=== PATIENT | female | born 1960 | race Caucasian/White ===

== ENCOUNTER 2019-07-16 12:21 | Outpatient (CLI) | payer OTHER, SELFPAY ==
[2019-07-16 13:31] LABS: Calcium 10.2 mg/dL (8.4-10.2)
[2019-07-16 13:44] LABS: Parathyroid Intact 69.9 pg/mL (7.5-53.5)
[2019-07-22 05:36] LABS: Vitamin D 1,25 (OH)2 Total 93 pg/mL (18-72); Vitamin D2 1,25 (OH)2 <8 pg/mL; Vitamin D3 1,25 (OH)2 93 pg/mL
== END 2019-07-16 12:22 | disposition home or self-care (01) ==
PROVIDERS: PCP Family Medicine
DX: E83.52 Hypercalcemia (principal)
CPT/HCPCS: 36415; 82310; 82652; 83970

== ENCOUNTER 2019-10-05 06:33 | Outpatient (CLI) | payer OTHER, SELFPAY ==
[2019-10-05 07:31] LABS: Hematocrit 45.4 % (37.0-47.0); Hemoglobin 15.2 g/dL (12.0-15.0); Mean Corpuscular HGB Conc 33.5 g/dl (32-36); Mean Corpuscular Hemoglobin 29.9 pg (26-34); Mean Corpuscular Volume 89.4 fl (80-100); Mean Platelet Volume 9.7 fl (7.4-10.4); Platelet Count Result 187 k/mm3 (150-375); Red Blood Count 5.08 M/mm3 (4.2-5.4); White Blood Count 5.2 K/mm3 (4.5-10.0)
[2019-10-05 07:43] LABS: Alanine Aminotransferase 19 U/L (4-35); Albumin Level 4.6 g/dL (3.5-5.1); Alkaline Phosphatase 106 U/L (38-126); Aspartate Amino Transferase 22 U/L (14-36); Bilirubin,Total 0.7 mg/dL (0.2-1.3); Blood Urea Nitrogen 12 mg/dL (7-17); Calcium 9.8 mg/dL (8.4-10.2); Carbon Dioxide 27 mmol/L (22-30); Chloride 105 mmol/L (98-107); Cholesterol 193 mg/dL (0-200); Estimated Glomerular Filt Rate > 60; Glucose 98 mg/dL (65-105); HDL Direct 41 mg/dL; Potassium 3.8 mmol/L (3.4-5.0); Sodium 140 mmol/L (137-145); Triglycerides 163 mg/dL (<150)
[2019-10-05 07:54] LABS: LDL Cholesterol Direct 111 mg/dL
== END 2019-10-05 06:34 | disposition home or self-care (01) ==
PROVIDERS: PCP Family Medicine; Visit Provider Family Medicine
DX: I10 Essential (primary) hypertension (principal); E78.5 Hyperlipidemia, unspecified
CPT/HCPCS: 36415; 80053; 80061; 85027

== ENCOUNTER 2019-12-07 16:21 | Outpatient (CLI) | payer OTHER, SELFPAY ==
[2019-12-07 17:12] LABS: Alanine Aminotransferase 20 U/L (4-35); Albumin Level 4.6 g/dL (3.5-5.1); Alkaline Phosphatase 110 U/L (38-126); Aspartate Amino Transferase 22 U/L (14-36); Bilirubin,Total 0.4 mg/dL (0.2-1.3); Blood Urea Nitrogen 18 mg/dL (7-17); Calcium 9.4 mg/dL (8.4-10.2); Carbon Dioxide 25 mmol/L (22-30); Chloride 106 mmol/L (98-107); Estimated Glomerular Filt Rate > 60; Glucose 94 mg/dL (65-105); Potassium 3.7 mmol/L (3.4-5.0); Sodium 139 mmol/L (137-145)
[2019-12-07 18:07] LABS: Parathyroid Intact 84.4 pg/mL (7.5-53.5)
[2019-12-07 18:23] LABS: Free T4 Free Thyroxine 0.72 ng/mL (0.78-2.19)
[2019-12-11 02:54] LABS: Thyroid Peroxidase Antibodies 1506 IU/mL (<9)
[2019-12-11 04:57] LABS: Ionized Calcium 5.3 mg/dL (4.8-5.6)
[2019-12-11 14:05] LABS: Triiodothyronine T3 Free 2.7 pg/mL (2.3-4.2)
== END 2019-12-07 16:22 | disposition home or self-care (01) ==
PROVIDERS: PCP Family Medicine; Visit Provider Internal Medicine Endocrinology, Diabetes & Metabolism
DX: E06.3 Autoimmune thyroiditis (principal); E21.0 Primary hyperparathyroidism
CPT/HCPCS: 36415; 80053; 82330; 83970; 84439; 84443; 84481; 86376

== ENCOUNTER 2020-01-08 06:32 | Outpatient (CLI) | payer OTHER, SELFPAY ==
[2020-01-08 07:57] LABS: Calcium 9.6 mg/dL (8.4-10.2)
[2020-01-08 08:08] LABS: Parathyroid Intact 87.5 pg/mL (7.5-53.5)
== END 2020-01-08 06:33 | disposition home or self-care (01) ==
PROVIDERS: PCP Family Medicine
DX: E21.3 Hyperparathyroidism, unspecified (principal); E83.52 Hypercalcemia
CPT/HCPCS: 36415; 82310; 83970

== ENCOUNTER 2020-01-17 06:34 | Outpatient (CLI) | payer OTHER, SELFPAY ==
[2020-01-17 08:23] LABS: Alanine Aminotransferase 19 U/L (4-35); Albumin Level 4.5 g/dL (3.5-5.1); Alkaline Phosphatase 101 U/L (38-126); Anion Gap 8 mmol/L (8-16); Aspartate Amino Transferase 21 U/L (14-36); Bilirubin,Total 0.7 mg/dL (0.2-1.3); Blood Urea Nitrogen 13 mg/dL (7-17); Calcium 9.7 mg/dL (8.4-10.2); Carbon Dioxide 27 mmol/L (22-30); Chloride 103 mmol/L (98-107); Estimated Glomerular Filt Rate > 60; Glucose 119 mg/dL (65-105); Potassium 3.6 mmol/L (3.4-5.0); Sodium 138 mmol/L (137-145)
[2020-01-17 08:35] LABS: Parathyroid Intact 71.7 pg/mL (7.5-53.5)
[2020-01-17 09:04] LABS: Free T4 Free Thyroxine 0.99 ng/mL (0.78-2.19); Vitamin D 25 Hydroxy 38.3 ng/mL
[2020-01-20 04:44] LABS: Thyroid Peroxidase Antibodies 1014 IU/mL (<9); Triiodothyronine T3 Free 2.7 pg/mL (2.3-4.2)
[2020-01-20 06:47] LABS: Ionized Calcium 5.5 mg/dL (4.8-5.6)
== END 2020-01-17 06:35 | disposition home or self-care (01) ==
PROVIDERS: PCP Family Medicine; Visit Provider Internal Medicine Endocrinology, Diabetes & Metabolism
DX: E06.3 Autoimmune thyroiditis (principal)
CPT/HCPCS: 36415; 80053; 82306; 82330; 83970; 84439; 84443; 84481; 86376

== ENCOUNTER 2020-02-15 16:36 | Outpatient (CLI) | payer OTHER, SELFPAY ==
--- NOTE | ~2020-02-15 | US_ITS ---
EXAMINATION: US thyroid DATE: 02/15/2020 17:05 INDICATION: Bibi thyroiditis. TECHNIQUE: Multiple ultrasound images of the thyroid were obtained. COMPARISON: Ultrasound 01/15/2019 FINDINGS: The right thyroid lobe measures 5.7 x 2.2 x 1.8 cm. The left thyroid lobe measures 6.2 x 2.3 x 1.7 c m. The thyroid is diffusely heterogeneous and hypoechoic without discrete nodule. Vascularity is nor mal. IMPRESSION: 1. Heterogeneous thyroid, consistent with chronic lymphocytic (Bibi) thyroiditis. Reviewed, dictated and finalized at location A. IMPRESSION: 1. Heterogeneous thyroid, consistent with chronic lymphocytic (Bibi) thyro iditis.
== END 2020-02-15 16:37 | disposition home or self-care (01) ==
PROVIDERS: PCP Family Medicine; Visit Provider Internal Medicine Endocrinology, Diabetes & Metabolism
DX: E06.3 Autoimmune thyroiditis (principal)
CPT/HCPCS: 76536

== ENCOUNTER 2020-02-18 06:33 | Outpatient (CLI) | payer OTHER, SELFPAY ==
[2020-02-18 07:20] LABS: Hemoglobin A1C 5.3 % (<5.7)
== END 2020-02-18 06:34 | disposition home or self-care (01) ==
PROVIDERS: PCP Family Medicine; Visit Provider Internal Medicine Endocrinology, Diabetes & Metabolism
DX: R73.01 Impaired fasting glucose (principal)
CPT/HCPCS: 36415; 83036; 83525

== ENCOUNTER 2020-03-17 07:18 | Outpatient (CLI) | payer OTHER, SELFPAY ==
--- NOTE | ~2020-03-17 | MM_ITS ---
EXAMINATION: MM screening jermain BI w sarah HISTORY: Screening mammogram TECHNIQUE: Craniocaudal and mediolateral oblique 3-D tomosynthesis images were obtained and synthetic 2-D images were generated. CAD analysis was submitted and interpreted. COMPARISON: 02/17/2019, 02/10/2018, 02/05/2017 bilateral digital screening mammogram examinations BREAST PARENCHYMAL COMPOSITION: There are scattered areas of fibroglandular density. FINDINGS: There is no evidence of suspicious mass, calcification, or architectural distortion to sugg est malignancy in either breast. There has been no suspicious interval change. IMPRESSION: 1. No mammographic evidence of malignancy. 2. Recommend routine screening mammography in one year. BI-RADS Category 1: Negative Reviewed, dictated and finalized at location A.
== END 2020-03-17 07:19 | disposition home or self-care (01) ==
LOC: ANHIMG 07:20
PROVIDERS: PCP Family Medicine; Visit Provider Obstetrics & Gynecology
DX: Z12.31 Encounter for screening mammogram for malignant neoplasm of breast (principal)
CPT/HCPCS: 77063; 77067

== ENCOUNTER 2020-04-28 06:31 | Outpatient (CLI) | payer OTHER, SELFPAY ==
[2020-04-28 09:18] LABS: Free T4 Free Thyroxine 1.07 ng/mL (0.78-2.19)
[2020-05-02 02:41] LABS: Thyroid Peroxidase Antibodies 1644 IU/mL (<9)
[2020-05-02 15:44] LABS: Triiodothyronine T3 Free 2.8 pg/mL (2.3-4.2)
== END 2020-04-28 06:32 | disposition home or self-care (01) ==
PROVIDERS: PCP Family Medicine; Visit Provider Internal Medicine Endocrinology, Diabetes & Metabolism
DX: E06.3 Autoimmune thyroiditis (principal)
CPT/HCPCS: 36415; 84439; 84443; 84481; 86376

== ENCOUNTER 2020-05-08 07:25 | Outpatient (CLI) | payer OTHER, SELFPAY ==
[2020-05-08 08:34] LABS: Alanine Aminotransferase 17 U/L (4-35); Albumin Level 4.4 g/dL (3.5-5.1); Alkaline Phosphatase 97 U/L (38-126); Anion Gap 5 mmol/L (8-16); Aspartate Amino Transferase 23 U/L (14-36); Bilirubin,Total 0.6 mg/dL (0.2-1.3); Blood Urea Nitrogen 15 mg/dL (7-17); Calcium 9.9 mg/dL (8.4-10.2); Carbon Dioxide 29 mmol/L (22-30); Chloride 105 mmol/L (98-107); Estimated Glomerular Filt Rate > 60; Glucose 115 mg/dL (65-105); Potassium 3.6 mmol/L (3.4-5.0); Sodium 139 mmol/L (137-145)
[2020-05-08 08:43] LABS: Parathyroid Intact 85.7 pg/mL (7.5-53.5)
[2020-05-11 13:06] LABS: Ionized Calcium 5.5 mg/dL (4.8-5.6)
== END 2020-05-08 07:26 | disposition home or self-care (01) ==
PROVIDERS: PCP Family Medicine; Visit Provider Internal Medicine Endocrinology, Diabetes & Metabolism
DX: E21.0 Primary hyperparathyroidism (principal)
CPT/HCPCS: 36415; 80053; 82330; 83970

== ENCOUNTER 2020-07-04 06:36 | Outpatient (CLI) | payer OTHER, SELFPAY ==
[2020-07-04 07:51] LABS: Alanine Aminotransferase 20 U/L (4-35); Albumin Level 4.6 g/dL (3.5-5.1); Alkaline Phosphatase 87 U/L (38-126); Anion Gap 5 mmol/L (8-16); Aspartate Amino Transferase 24 U/L (14-36); Bilirubin,Total 0.9 mg/dL (0.2-1.3); Blood Urea Nitrogen 8 mg/dL (7-17); Calcium 10.1 mg/dL (8.4-10.2); Carbon Dioxide 33 mmol/L (22-30); Chloride 103 mmol/L (98-107); Cholesterol 167 mg/dL (0-200); Estimated Glomerular Filt Rate > 60; Glucose 106 mg/dL (65-105); HDL Direct 49 mg/dL; Sodium 141 mmol/L (137-145); Triglycerides 104 mg/dL (<150)
[2020-07-04 08:02] LABS: LDL Cholesterol Direct 97 mg/dL
[2020-07-04 08:14] LABS: Hemoglobin A1C 5.3 % (<5.7)
[2020-07-04 08:29] LABS: Free T4 Free Thyroxine 1.04 ng/mL (0.78-2.19)
[2020-07-06 05:05] LABS: Insulin Level Total 4.4 uIU/mL (<=19.6)
[2020-07-06 05:55] LABS: Thyroid Peroxidase Antibodies 1774 IU/mL (<9)
[2020-07-07 06:55] LABS: Triiodothyronine T3 Free 2.8 pg/mL (2.3-4.2)
[2020-07-09 14:30] LABS: PRA 10.29 ng/mL/h (0.25-5.82)
== END 2020-07-04 06:37 | disposition home or self-care (01) ==
PROVIDERS: Visit Provider Internal Medicine Endocrinology, Diabetes & Metabolism
DX: E06.3 Autoimmune thyroiditis (principal); R73.01 Impaired fasting glucose; I10 Essential (primary) hypertension
CPT/HCPCS: 36415; 80053; 80061; 82088; 83036; 83525; 84244; 84439; 84443; 84481; 86376

== ENCOUNTER 2021-01-04 06:35 | Outpatient (CLI) | payer OTHER, SELFPAY ==
[2021-01-04 08:05] LABS: Alanine Aminotransferase 20 U/L (4-35); Albumin Level 4.5 g/dL (3.5-5.1); Alkaline Phosphatase 97 U/L (38-126); Anion Gap 10 mmol/L (8-16); Aspartate Amino Transferase 22 U/L (14-36); Bilirubin,Total 0.9 mg/dL (0.2-1.3); Blood Urea Nitrogen 15 mg/dL (7-17); Calcium 9.8 mg/dL (8.4-10.2); Carbon Dioxide 23 mmol/L (22-30); Chloride 104 mmol/L (98-107); Cholesterol 216 mg/dL (0-200); Estimated Glomerular Filt Rate > 60; Glucose 99 mg/dL (65-110); HDL Direct 57 mg/dL; Potassium 3.7 mmol/L (3.4-5.0); Sodium 137 mmol/L (137-145); Triglycerides 82 mg/dL (<150)
[2021-01-04 08:16] LABS: LDL Cholesterol Direct 115 mg/dL
[2021-01-04 08:43] LABS: Hemoglobin A1C 5.5 % (<5.7)
[2021-01-04 09:01] LABS: Vitamin D 25 Hydroxy 37.2 ng/mL
[2021-01-08 03:45] LABS: Insulin Level Total 6.6 uIU/mL (<=19.6)
[2021-01-09 06:29] LABS: Triiodothyronine T3 Free 2.7 pg/mL (2.3-4.2)
== END 2021-01-04 06:36 | disposition home or self-care (01) ==
PROVIDERS: PCP Family Medicine; Visit Provider Family Medicine
DX: E55.9 Vitamin D deficiency, unspecified (principal); E03.9 Hypothyroidism, unspecified; R73.01 Impaired fasting glucose
CPT/HCPCS: 36415; 80053; 80061; 82306; 83036; 83525; 84439; 84443; 84481

== ENCOUNTER 2021-03-12 00:31 | Day surgery (SDC) | payer OTHER, SELFPAY ==
[2021-02-23 13:30] VITALS: BMI 27.1
--- NOTE | 2021-03-09 18:34 | P.PNAN_ITS ---
Anes - Initial Pre Proc Eval Procedure: Operation Date: 03/12/21 08:30 Proposed Procedures p Screening Colonoscopy - Tank Powers MD Date/Time: 03/09/21 18:34 Surgeon: Tank Powers MD Pre Op Diagnosis: neoplasm screening Patient Data Age: 60 Gender: F Height: 1.66 m Weight: 75 kg Allergies Allergy/AdvReac Type Severity Reaction Status Date / Time No Known Allergies Allergy Verified 02/23/21 13:29 Home Medications Medication Instructions Recorded Confirmed Type levothyroxine 75 mcg tablet 75 mcg PO DAILY 09/26/20 02/23/21 History losartan 50 mg tablet 50 mg PO DAILY #90 tablet 09/26/20 02/23/21 Rx simvastatin 20 mg tablet 20 mg PO DAILY #90 tablet 09/26/20 02/23/21 Rx cholecalciferol (vitamin D3) 10 mcg PO DAILY 02/23/21 02/23/21 History [Vitamin D3] Patient hx anesthesia problems: none Family hx anesthesia problems: none Results Review: All pre-operative results and documents have been reviewed as part of the pre-operative evaluation. [facility] Past Medical History Medical History (Updated 03/12/21 @ 07:50 by Tank Powers MD) BMI (body mass index) 20.0-29.9 Essential hypertension Bibi's thyroiditis Hyperparathyroidism Mixed hyperlipidemia Family History Family History (Updated 09/26/20 @ 12:33 by Renée Quintanilla CMA) Mother Hypertension Father Diabetes mellitus Sibling Diabetes mellitus Hypertension Social History Social History (Updated 09/26/20 @ 12:33 by Renée Quintanilla CMA) Smoking status: Never smoker Alcohol intake: current Alcohol use details: seldom; socially Substance use: never Substance use type: does not use Living arrangements: with family Spiritual care concerns: No Anes - Eval Final PreProcedure Day of Procedure 03/09/21 18:34 Patient weight: overweight Heart: regular rate and rhythm Lungs: clear to auscultation and normal air movement Airway: Mallampati scale class II Neurological: alert and oriented Last oral intake: >/= 8 hours ASA classification: III Emergent: no Anesthetic plan: proceed Anesthesia type and monitoring: general GIVS and standard monitoring Results Review: All pre-operative results and documents have been reviewed as part of the pre-operative evaluation. Informed Consent: The patient's anesthetic plan and its attendant risks and benefits were discussed with the patient/family/POA. Questions were solicited and answers provided to the satisfaction of the patient/family/POA.
[2021-03-12 07:40] VITALS: BP 130/79; PULSE 80; RESP 16; TEMP 36.5; O2SAT 100; BMI 26.4
--- NOTE | 2021-03-12 07:49 | WPDGICN ---
Assessment and Plan Assessment and plan (1) Encounter for screening colonoscopy: Code(s): Z12.11 - Encounter for screening for malignant neoplasm of colon Status: Acute Assessment and Plan: Patient presents for screening colonoscopy. She appears to be at average risk for colon polyps. Further recommendations will be given after colonoscopy. GI Consult Note Consult date/time: 03/12/21 07:49 HPI: Frieda Baeza is a 60 year old female Presents for screening colonoscopy. Patient reports that her current weight appetite and bowel movements are normal. Patient denies abdominal pain. She has had no bleeding. Family history is noncontributory. Review of Systems Review of Systems: All systems reviewed & are unremarkable except as noted in HPI and below PMFSH Past Medical History Medical History (Updated 03/12/21 @ 07:50 by Tank Powers MD) BMI (body mass index) 20.0-29.9 Essential hypertension Bibi's thyroiditis Hyperparathyroidism Mixed hyperlipidemia Family History Family History (Updated 09/26/20 @ 12:33 by Renée Quintanilla CMA) Mother Hypertension Father Diabetes mellitus Sibling Diabetes mellitus Hypertension Social History Social History (Updated 09/26/20 @ 12:33 by Renée Quintanilla CMA) Smoking status: Never smoker Alcohol intake: current Alcohol use details: seldom; socially Substance use: never Substance use type: does not use Living arrangements: with family Spiritual care concerns: No Meds Home Medications and Allergies Home Medications Medication Instructions Recorded Confirmed Type levothyroxine 75 mcg tablet 75 mcg PO DAILY 09/26/20 02/23/21 History losartan 50 mg tablet 50 mg PO DAILY #90 tablet 09/26/20 02/23/21 Rx simvastatin 20 mg tablet 20 mg PO DAILY #90 tablet 09/26/20 02/23/21 Rx cholecalciferol (vitamin D3) 10 mcg PO DAILY 02/23/21 02/23/21 History [Vitamin D3] Allergies Allergy/AdvReac Type Severity Reaction Status Date / Time No Known Allergies Allergy Verified 02/23/21 13:29 Vital Signs Vital Signs - 24 hr 03/12/21 07:40 Temperature 97.7 F Pulse Rate 80 Respiratory Rate 16 Blood Pressure 130/79 Pulse Oximetry 100 Exam Narrative: Physical exam reveals patient to be alert. Vital signs stable. HEENT exam is unremarkable. Patient is anicteric. Lungs are clear to auscultation and percussion. Heart is without murmur or extra sounds. Abdominal exam bowel sounds are present soft nontender with no organomegaly. Digital external rectal exam is normal.
[2021-03-12] MEDS: LACTATED RINGERS 1,000 ML 150 ML IV CONT (07:54)
[2021-03-12 08:56] VITALS: BP 91/51; PULSE 64; RESP 16; O2SAT 97
[2021-03-12 09:06] VITALS: BP 98/61; PULSE 70; RESP 18; O2SAT 98
[2021-03-12 09:16] VITALS: BP 105/72; PULSE 66; RESP 18; O2SAT 98
== END 2021-03-12 09:26 | disposition home or self-care (01) ==
PROVIDERS: PCP Family Medicine; Visit Provider Internal Medicine Gastroenterology
PROC: 0DJD8ZZ Inspection of Lower Intestinal Tract, Via Natural or Artificial Opening Endoscopic (ICD-10-PCS; CPT 45378; principal; 2021-03-12 08:30)
DX: Z12.11 Encounter for screening for malignant neoplasm of colon (principal); K64.8 Other hemorrhoids; I10 Essential (primary) hypertension; E06.3 Autoimmune thyroiditis; E21.3 Hyperparathyroidism, unspecified
CPT/HCPCS: 45378; J2001; J2704; J7120

== ENCOUNTER 2021-04-20 08:18 | Outpatient (CLI) | payer OTHER, SELFPAY ==
--- NOTE | ~2021-04-20 | MM_ITS ---
EXAMINATION: MM screening jermain BI w sarah HISTORY: Screening mammogram TECHNIQUE: Craniocaudal and mediolateral oblique 3-D tomosynthesis images were obtained and synthetic 2-D images were generated. CAD analysis was submitted and interpreted. COMPARISON: 03/17/2020, 02/17/2019, 02/10/2018 bilateral screening mammogram examinations BREAST PARENCHYMAL COMPOSITION: There are scattered areas of fibroglandular density. FINDINGS: There is no evidence of suspicious mass, calcification, or architectural distortion to sugg est malignancy in either breast. There has been no suspicious interval change. IMPRESSION: 1. No mammographic evidence of malignancy. 2. Recommend routine screening mammography in one year. BI-RADS Category 1: Negative Reviewed, dictated and finalized at location A. CLEANER
== END 2021-04-20 08:19 | disposition home or self-care (01) ==
LOC: ANHIMG 08:20
PROVIDERS: PCP Family Medicine; Visit Provider Obstetrics & Gynecology
DX: Z12.31 Encounter for screening mammogram for malignant neoplasm of breast (principal)
CPT/HCPCS: 77063; 77067

== ENCOUNTER 2021-06-12 06:53 | Outpatient (CLI) | payer OTHER, SELFPAY ==
[2021-06-12 08:07] LABS: Hemoglobin A1C 5.4 % (<5.7)
[2021-06-12 08:09] LABS: Alanine Aminotransferase 21 U/L (4-35); Albumin Level 4.1 g/dL (3.5-5.1); Alkaline Phosphatase 90 U/L (38-126); Anion Gap 8 mmol/L (8-16); Aspartate Amino Transferase 22 U/L (14-36); Bilirubin,Total 0.6 mg/dL (0.2-1.3); Blood Urea Nitrogen 13 mg/dL (7-17); Calcium 9.4 mg/dL (8.4-10.2); Carbon Dioxide 26 mmol/L (22-30); Chloride 105 mmol/L (98-107); Estimated Glomerular Filt Rate > 60; Glucose 108 mg/dL (65-110); Sodium 139 mmol/L (137-145)
[2021-06-12 08:49] LABS: Free T4 Free Thyroxine 0.99 ng/mL (0.78-2.19)
[2021-06-15 03:21] LABS: Insulin Level Total 5.9 uIU/mL (<=19.6)
[2021-06-15 06:43] LABS: Triiodothyronine T3 Free 2.8 pg/mL (2.3-4.2)
== END 2021-06-12 06:54 | disposition home or self-care (01) ==
PROVIDERS: PCP Family Medicine; Visit Provider Internal Medicine Endocrinology, Diabetes & Metabolism
DX: E03.9 Hypothyroidism, unspecified (principal); R73.01 Impaired fasting glucose
CPT/HCPCS: 36415; 80053; 83036; 83525; 84439; 84443; 84481

== ENCOUNTER 2021-11-16 07:16 | Outpatient (CLI) | payer OTHER, SELFPAY ==
[2021-11-16 08:26] LABS: Cholesterol 149 mg/dL (0-200); HDL Direct 41 mg/dL; Triglycerides 58 mg/dL (<150)
[2021-11-16 08:37] LABS: LDL Cholesterol Direct 83 mg/dL
== END 2021-11-16 07:17 | disposition home or self-care (01) ==
LOC: ANHLAB 07:18
PROVIDERS: PCP Family Medicine; Visit Provider Family Medicine
DX: I10 Essential (primary) hypertension (principal); E78.2 Mixed hyperlipidemia; R73.03 Prediabetes
CPT/HCPCS: 36415; 80061

== ENCOUNTER 2021-12-15 06:54 | Outpatient (CLI) | payer OTHER, SELFPAY ==
[2021-12-15 08:16] LABS: Hemoglobin A1C 4.9 % (<5.7)
[2021-12-19 12:31] LABS: Insulin Level Total 3.9 uIU/mL (<=19.6)
== END 2021-12-15 06:55 | disposition home or self-care (01) ==
PROVIDERS: PCP Family Medicine; Visit Provider Internal Medicine Endocrinology, Diabetes & Metabolism
DX: R73.03 Prediabetes (principal)
CPT/HCPCS: 36415; 83036; 83525

== ENCOUNTER 2022-06-12 06:36 | Outpatient (CLI) | payer OTHER, SELFPAY ==
[2022-06-12 07:23] LABS: Alanine Aminotransferase 23 U/L (6-35); Albumin Level 4.7 g/dL (3.5-5.1); Alkaline Phosphatase 84 U/L (38-126); Anion Gap 5 mmol/L (8-16); Aspartate Amino Transferase 26 U/L (14-36); Bilirubin,Total 0.8 mg/dL (0.2-1.3); Blood Urea Nitrogen 14 mg/dL (7-17); Calcium 9.4 mg/dL (8.4-10.2); Carbon Dioxide 28 mmol/L (22-30); Chloride 103 mmol/L (98-107); Estimated Glomerular Filt Rate > 60; Glucose 86 mg/dL (65-110); Potassium 3.6 mmol/L (3.4-5.0); Sodium 136 mmol/L (137-145)
[2022-06-12 07:24] LABS: Alanine Aminotransferase 23 U/L (6-35); Albumin Level 4.7 g/dL (3.5-5.1); Alkaline Phosphatase 86 U/L (38-126); Anion Gap 8 mmol/L (8-16); Aspartate Amino Transferase 24 U/L (14-36); Bilirubin,Total 0.9 mg/dL (0.2-1.3); Blood Urea Nitrogen 14 mg/dL (7-17); Calcium 9.5 mg/dL (8.4-10.2); Carbon Dioxide 27 mmol/L (22-30); Chloride 102 mmol/L (98-107); Cholesterol 186 mg/dL (0-200); Estimated Glomerular Filt Rate > 60; Glucose 85 mg/dL (65-110); HDL Direct 66 mg/dL; Potassium 3.8 mmol/L (3.4-5.0); Sodium 137 mmol/L (137-145); Triglycerides 88 mg/dL (<150)
[2022-06-12 07:35] LABS: LDL Cholesterol Direct 89 mg/dL
[2022-06-12 07:38] LABS: Creatinine Urine 74.5 mg/dL
[2022-06-12 07:40] LABS: Free T4 Free Thyroxine 1.33 ng/mL (0.78-2.19)
[2022-06-12 07:43] LABS: Microalbumin Urine Random 9.7 mg/L (0-16.7)
[2022-06-12 07:51] LABS: Thyroid Stimulating Hormone 0.667 uIU/mL (0.465-4.680)
[2022-06-12 07:53] LABS: Thyroid Stimulating Hormone Reflex 0.692 uIU/mL (0.465-4.68)
[2022-06-13 13:50] LABS: Hemoglobin A1C 4.9 % (<5.7)
[2022-06-15 11:28] LABS: Insulin Level Total 8.1 uIU/mL (<=19.6)
[2022-06-17 19:29] LABS: Triiodothyronine T3 Free 2.9 pg/mL (2.3-4.2)
== END 2022-06-12 06:37 | disposition home or self-care (01) ==
PROVIDERS: PCP Family Medicine; Referring Provider Nurse Practitioner; Visit Provider Family Medicine
DX: E78.2 Mixed hyperlipidemia (principal); E11.9 Type 2 diabetes mellitus without complications; E03.9 Hypothyroidism, unspecified
CPT/HCPCS: 36415; 80053; 80061; 82043; 83036; 83525; 84439; 84443; 84481

== ENCOUNTER 2022-06-14 15:24 | Outpatient (CLI) | payer OTHER, SELFPAY ==
--- NOTE | ~2022-06-14 | MM_ITS ---
EXAMINATION: MM screening [facility] BI w sarah HISTORY: Screening mammogram TECHNIQUE: Craniocaudal and mediolateral oblique 3-D tomosynthesis images were obtained and synthetic 2-D images were generated. CAD analysis was submitted and interpreted. COMPARISON: 04/20/2021, 03/17/2020, 02/17/2019 BREAST PARENCHYMAL COMPOSITION: There are scattered areas of fibroglandular density. FINDINGS: RIGHT BREAST: No suspicious mass, calcification, or architectural distortion are identified to sugges t malignancy. There has been no suspicious interval change. LEFT BREAST: There is a possible mass in the subareolar aspect of the breast best appreciated on the craniocaudal view. IMPRESSION: 1. Possible left breast mass. 2. Additional mammographic views and possible breast ultrasound are recommended. BI-RADS Category 0: Incomplete: Needs additional imaging evaluation. Reviewed, dictated and finalized at location A. ERY GRINDER IMPRESSION: 1. Possible left breast mass. 2. Additional mammographic views and possible breast ultrasound are recommended . BI-RADS Category 0: Incomplete: Needs additional imaging evaluation.
== END 2022-06-14 15:25 | disposition home or self-care (01) ==
LOC: ANHIMG 15:25
PROVIDERS: PCP Family Medicine; Visit Provider Obstetrics & Gynecology
DX: Z12.31 Encounter for screening mammogram for malignant neoplasm of breast (principal); R92.8 Other abnormal and inconclusive findings on diagnostic imaging of breast
CPT/HCPCS: 77063; 77067

== ENCOUNTER 2022-06-19 12:16 | Outpatient (CLI) | payer OTHER, SELFPAY ==
--- NOTE | ~2022-06-19 | MMUS_ITS ---
EXAMINATION: MM diagnostic jermain LT w sarah, US breast LT limited HISTORY: Possible left breast mass reported in subareolar area on 06/14/2019 screening mammogram TECHNIQUE: Additional 3-D tomosynthesis images of the left breast were performed and synthetic 2-D im ages were generated. CAD analysis was submitted and interpreted. COMPARISON: 06/14/2022screening mammogram Mammogram FINDINGS: There is an approximately 3.2 x 5.3 mm mammographic opacity in the subareolar area of the left breast on CC projection without obvious correlate on the MLO or ML views. Targeted left subareolar breast u ltrasound examination was performed. Ultrasound findings: In the subareolar area there is a parallel circumscribed probable septated cyst measuring approximate ly 4.6 x 2.5 x 5.9 mm. 6 month diagnostic left mammogram and left subareolar breast ultrasound follow -up are recommended. IMPRESSION: 1. Probable benign finding 2. 6 month diagnostic left mammogram and left breast ultrasound follow-up are recommended BI-RADS category 3, probably benign findings. Reviewed, dictated and finalized at location A. R DISTRIBUTOR IMPRESSION: 1. Probable benign finding 2. 6 month diagnostic left mammogram and left breast ultrasound follow-up are r ecommended BI-RADS category 3, probably benign findings.
== END 2022-06-19 12:17 | disposition home or self-care (01) ==
LOC: ANHIMG 12:17
PROVIDERS: PCP Family Medicine; Visit Provider Obstetrics & Gynecology
DX: R92.8 Other abnormal and inconclusive findings on diagnostic imaging of breast (principal)
CPT/HCPCS: 76642; 77061; 77065; G0279

== ENCOUNTER 2022-12-14 07:50 | Outpatient (CLI) | payer OTHER, SELFPAY ==
[2022-12-14 08:59] LABS: Cholesterol 173 mg/dL (0-200); HDL Direct 55 mg/dL; Triglycerides 64 mg/dL (<150)
[2022-12-14 09:11] LABS: LDL Cholesterol Direct 89 mg/dL
[2022-12-14 10:04] LABS: Free T4 Free Thyroxine 1.51 ng/mL (0.78-2.19)
== END 2022-12-14 07:51 | disposition home or self-care (01) ==
LOC: ANHLAB 07:53
PROVIDERS: PCP Family Medicine; Visit Provider Internal Medicine Endocrinology, Diabetes & Metabolism
DX: E03.9 Hypothyroidism, unspecified (principal); R73.01 Impaired fasting glucose
CPT/HCPCS: 36415; 80061; 83036; 84439; 84443

== ENCOUNTER 2022-12-17 13:46 | Outpatient (CLI) | payer OTHER, SELFPAY ==
--- NOTE | ~2022-12-17 | MMUS_ITS ---
EXAMINATION: MM diagnostic jermain LT w sarah, US breast LT limited HISTORY: Six-month follow-up of probable benign subareolar septated 4.6 x 2.5 x 5.9 mm cyst TECHNIQUE: Full field and spot ML, MLO and CC 3-D tomosynthesis images of the left breast were perfor med and synthetic 2-D images were generated. CAD analysis was submitted and interpreted. High resolut ion targeted subareolar left breast ultrasound was performed. COMPARISON: 06/19/2022 diagnostic left mammogram and left breast ultrasound examination BREAST PARENCHYMAL COMPOSITION: There are scattered areas of fibroglandular density. FINDINGS: MAMMOGRAPHIC FINDINGS: There is a circumscribed approximately 4 x 6 mm opacity in the inferior subareolar area of the left b reast. No suspicious mass, architectural distortion, malignant calcification, skin thickening or retraction of the left breast is noted otherwise. ULTRASOUND: There is a septated cyst in the subareolar area, measuring 4.8 x 3.9 x 7 mm. The margins are circumsc ribed. There is through transmission. No suspicious shadowing or internal vascularity is noted. IMPRESSION: 1. Benign septated cyst and subareolar area; no mammographic or sonographic evidence of malignancy is detected 2. Routine annual mammographic screening is recommended BI-RADS Category 2: Benign finding(s). Reviewed, dictated and finalized at location L. IMPRESSION: 1. Benign septated cyst and subareolar area; no mammographic or sonographic isidoro dence of malignancy is detected 2. Routine annual mammographic screening is recommended BI-RADS Category 2: Benign finding(s).
== END 2022-12-17 13:47 | disposition home or self-care (01) ==
PROVIDERS: PCP Family Medicine; Visit Provider Obstetrics & Gynecology
DX: R92.8 Other abnormal and inconclusive findings on diagnostic imaging of breast (principal); N60.19 Diffuse cystic mastopathy of unspecified breast
CPT/HCPCS: 76642; 77061; 77065; G0279

== ENCOUNTER 2023-07-03 15:26 | Outpatient (CLI) | payer OTHER, SELFPAY ==
--- NOTE | ~2023-07-03 | US_ITS ---
EXAMINATION: US thyroid DATE: 07/03/2023 16:08 INDICATION: Goiter. TECHNIQUE: Multiple ultrasound images of the thyroid were obtained. COMPARISON: Thyroid ultrasound 02/15/2020 FINDINGS: The right thyroid lobe measures 4.9 x 1.7 x 4.5 cm. The left thyroid lobe measures 5.5 x 1.5 x 1.8 c m. The thyroid demonstrates diffusely heterogeneous hypoechogenicity and increased vascularity. No d iscrete nodule. IMPRESSION: 1. Heterogeneous, hypervascular thyroid again seen, consistent with chronic lymphocytic (Bibi) t hyroiditis. Reviewed, dictated and finalized at location E. MIX OPERATOR IMPRESSION: 1. Heterogeneous, hypervascular thyroid again seen, consistent with chronic lym phocytic (Bibi) thyroiditis.
== END 2023-07-03 15:27 | disposition home or self-care (01) ==
LOC: ANHIMG 15:29
PROVIDERS: PCP Family Medicine; Visit Provider Internal Medicine
DX: E06.3 Autoimmune thyroiditis (principal)
CPT/HCPCS: 76536

== ENCOUNTER 2023-09-02 11:12 | Emergency (ER) | payer OTHER, SELFPAY ==
--- NOTE | ~2023-09-02 | CT_ITS ---
EXAMINATION: CT brain wo con DATE: 09/02/2023 12:45 INDICATION: Head injury. TECHNIQUE: Computed tomography (CT) of the head was performed without intravenous contrast. The mA wa s adjusted according to patient size. Iterative reconstruction technique was employed. The dose-lengt h product was 605.33 mGy-cm. COMPARISON: None FINDINGS: There is no intracranial hemorrhage, acute infarction, or abnormal intracranial mass lesion . The ventricles are normal in size. There is a frontal scalp hematoma. The orbits are normal. The pa ranasal sinuses are clear. The mastoid air cells are normal. IMPRESSION: 1. Normal brain. Reviewed, dictated and finalized at location A. IMPRESSION: 1. Normal brain.
[2023-09-02 11:14] VITALS: BP 140/76; PULSE 70; RESP 18; TEMP 36.6; O2SAT 100
--- NOTE | 2023-09-02 12:12 | ED.HEATRA ---
HPI - Head Injury General Chief complaint: Head Injury Stated complaint: head injury Time Seen by Provider: 09/02/23 11:35 History of Present Illness HPI Narrative: 63-year-old female presents to the emergency department for head injury that occurred prior to arrival. 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 States a piece of equipment hit her in the head. She denies headache, vision changes, focal numbness or weakness, loss of consciousness. She is not anticoagulated. States she was seen here in emergency department for further evaluation due to protocols. Denies neck pain or other injury acquired. Related Data Home Medications Medication Instructions Recorded Confirmed levothyroxine 75 mcg tablet 75 mcg PO DAILY 09/26/20 06/10/23 (Synthroid) cholecalciferol (vitamin D3) 10 10 mcg PO DAILY 02/23/21 06/10/23 mcg (400 unit) capsule (Vitamin D3) Allergies Allergy/AdvReac Type Severity Reaction Status Date / Time No Known Allergies Allergy Verified 09/02/23 11:20 Review of Systems Review of Systems: CONSTITUTIONAL: Denies fever, chills, or sweats. EYES: Denies visual changes, redness, or discharge. ENT: Denies rhinorrhea, congestion, sore throat, or otalgia. CARDIOVASCULAR: Denies chest pain, palpitations, or edema. RESPIRATORY: Denies cough or dyspnea. GASTROINTESTINAL: Denies abdominal pain, nausea, vomiting, or diarrhea. GENITOURINARY: Denies dysuria or hematuria. SKIN: Denies rash or itching. MUSCULOSKELETAL: Denies back pain, joint pain, or myalgia. NEUROLOGIC: See HPI PSYCHIATRIC: Denies anxiety or depression. [facility] Past Medical History Medical History BMI (body mass index) 20.0-29.9 Essential hypertension Bibi's thyroiditis Hyperparathyroidism Mixed hyperlipidemia Family History Family History Mother Hypertension Father Diabetes mellitus Sibling Diabetes mellitus Hypertension Social History Social History Smoking status: Never smoker Second hand tobacco smoke exposure: No Alcohol intake: current Alcohol use details: seldom; socially Substance use: never Substance use type: does not use Do You Feel Safe in your Home?: Yes Lack of Transportation: No Lack of Food: Never True Current Housing: I Have Housing Concerned About Future Housing: No Difficulty Paying Gas/Electric Bills: No Difficulty Paying for Meds: No Currently Unemployed: No Education: High School Diploma/GED Difficulty w/ Childcare or Family Care: No Living arrangements: with family Occupation/Education: occupation Gender identity (if verbalized by the patient): Female Spiritual care concerns: No Agree to blood products: Yes Exam Narrative: GENERAL: Well-appearing, well-nourished, and in no acute distress. HEAD: Contusion to the superior aspect of the forehead with a mild amount of overlying ecchymosis. No lacerations or abrasions. No step-offs or deformities to scalp. EYES: PERRLA and EOMI. ENT: Nares clear, no rhinorrhea or epistaxis. Mucous membranes moist. NECK: No midline cervical spinous tenderness, step-offs or deformities. CHEST: Clear to auscultation. No respiratory distress. HEART: Regular rate and rhythm. No murmur heard. Normal peripheral pulses. EXTREMITIES: Normal range of motion. No edema. SKIN: Warm, dry, no rash. NEURO: No focal deficits. Alert and oriented x3. Cranial nerves 2-12 intact. Strength 5/5 in BUE and BLE. Sensation intact throughout. Normal [id number]. No pronator drift. Course Vital Signs Vital signs: Vital Signs Temperature 97.8 F 09/02/23 11:14 Pulse Rate 70 09/02/23 11:14 Respiratory Rate 18 09/02/23 11:14 Blood Pressure 140/76 09/02/23 11:14 Pulse Oximetry 100 09/02/23 11:14 Oxygen D
== END 2023-09-02 13:08 | disposition home or self-care (01) ==
PROVIDERS: Emergency Provider Physician Assistant; PCP Family Medicine
DX: S00.03XA Contusion of scalp, initial encounter (principal); I10 Essential (primary) hypertension; E06.3 Autoimmune thyroiditis; W22.8XXA Striking against or struck by other objects, initial encounter
CPT/HCPCS: 70450; 99284

== ENCOUNTER 2023-10-18 07:21 | Outpatient (CLI) | payer OTHER, SELFPAY ==
[2023-10-18 07:48] LABS: Alanine Aminotransferase 18 U/L (6-35); Albumin Level 4.5 g/dL (3.5-5.1); Alkaline Phosphatase 83 U/L (38-126); Anion Gap 7 mmol/L (4-12); Aspartate Amino Transferase 22 U/L (14-36); Bilirubin,Total 0.8 mg/dL (0.2-1.3); Blood Urea Nitrogen 17 mg/dL (7-17); Calcium 9.4 mg/dL (8.4-10.2); Carbon Dioxide 27 mmol/L (22-30); Chloride 108 mmol/L (98-107); Estimated Glomerular Filt Rate > 60; Glucose 99 mg/dL (65-110); Potassium 4.5 mmol/L (3.4-5.0); Sodium 142 mmol/L (137-145)
[2023-10-18 08:00] LABS: Parathyroid Intact 74.1 pg/mL (7.5-53.5)
[2023-10-18 08:20] LABS: Thyroid Stimulating Hormone 0.962 uIU/mL (0.465-4.680)
[2023-10-18 08:40] LABS: Free T4 Free Thyroxine 0.97 ng/mL (0.78-2.19); Vitamin D 25 Hydroxy 33.5 ng/mL
[2023-10-21 08:14] LABS: Thyroid Peroxidase Antibodies 436 IU/mL (<9)
== END 2023-10-18 07:22 | disposition home or self-care (01) ==
LOC: ANHLAB 07:23
PROVIDERS: PCP Family Medicine; Visit Provider Internal Medicine
DX: E06.3 Autoimmune thyroiditis (principal)
CPT/HCPCS: 36415; 80053; 82306; 82330; 83970; 84439; 84443; 86376

== ENCOUNTER 2024-02-16 14:54 | Outpatient (CLI) | payer OTHER, SELFPAY ==
--- NOTE | ~2024-02-16 | MM_ITS ---
EXAMINATION: MM screening [facility] BI w sarah HISTORY: Screening mammogram TECHNIQUE: Craniocaudal and mediolateral oblique 3-D tomosynthesis images were obtained and synthetic 2-D images were generated. CAD analysis was submitted and interpreted. COMPARISON: 12/17/2022, 06/14/2022, 04/20/2021, 03/17/2020 BREAST PARENCHYMAL COMPOSITION:Not Dense. There are scattered areas of fibroglandular density. FINDINGS: No suspicious mass, calcification, or architectural distortion are identified in either myrtle ast to suggest malignancy. There has been no suspicious interval change. IMPRESSION: No mammographic evidence of malignancy. Recommend routine screening mammography in one year. BI-RADS Category 1: Negative Reviewed, dictated and finalized at location .
== END 2024-02-16 14:55 | disposition home or self-care (01) ==
LOC: ANHIMG 14:56
PROVIDERS: PCP Family Medicine; Visit Provider Obstetrics & Gynecology
DX: Z12.31 Encounter for screening mammogram for malignant neoplasm of breast (principal)
CPT/HCPCS: 77063; 77067

== ENCOUNTER 2024-03-08 07:46 | Outpatient (CLI) | payer OTHER, SELFPAY ==
[2024-03-08 08:33] LABS: Total Volume 24 Hour Urine 2750 ml
[2024-03-08 09:15] LABS: Creatinine 24 Hour Urine 0.8 gm/24 (0.8-1.8); Creatinine Urine 31.4 mg/dL
[2024-03-10 13:49] LABS: Total Volume 2750 mL
== END 2024-03-08 07:47 | disposition home or self-care (01) ==
PROVIDERS: PCP Family Medicine; Visit Provider Internal Medicine
DX: R79.89 Other specified abnormal findings of blood chemistry (principal)
CPT/HCPCS: 81050; 82340; 82570

== ENCOUNTER 2024-09-20 07:54 | Outpatient (CLI) | payer OTHER, SELFPAY ==
--- OUTSIDE RECORDS SUMMARY | 2024-09-20 08:03 | XMS_ITS | Data Portability ---
Author Organization [facility], Main Office Address [address] [place] [address] Assessment No assessment recorded. Plan of Treatment Reminders Order Date Submit Date Provider Last Modified By Organization Details Last Modified Time Details Appointments None recorded. Lab HbA1c (hemoglobi n A1c), blood [address] (Lab), [address] [place] [address], [id number], 17:09:32 CMP, serum or plasma [address] (Lab), [address] [place] [address], [id number], 17:09:32 lipid panel, serum 2022 023 [place] (Lab), [address] [place] [address], [id number], 16:15:58 TSH + free T4, serum [address] (Lab), [address] [place] [address], [id number], 17:09:32 Referral None recorded. Procedures None recorded. Surgeries None recorded. Imaging None recorded. Medication Orders Synthroid 88 mcg tablet 2022 023 [facility], [address], [place], [address], 17:08:06 Patient TargetsNo targets recorded. Patient InstructionsNo instructions recorded. Reason for Referral None Reported. Results Created Date Observation Date Name Description Value Unit Range Abnormal Flag Note LastModifiedBy Organization Detail LastModifiedTime Result Notes None recorded. Problems Name Problem SNOMED Code Status Onset Date Resolution Date Notes Provider Name and Address Organization Details Recorded Time Hypertensive disorder 85208447 Active 2018 Not Available [facility] 3 06:03:05 Impaired fasting glycemia 488473861 Active 2021 Not Available [facility] 3 06:03:05 Hypothyroidis m 51758354 Active 2021 Not Available [facility] 3 06:03:05 Hyperlipidemi a 97619869 Active 2018 Not Available [facility] 3 06:03:05 Essential hypertension 11024720 Active 2021 Not Available [facility] 3 06:03:05 Problem Notes None recorded. Procedures Surgical History Date Name Laterality Status Provider Name and Address Organization Details Recorded Time Kidney Stones completed Not Available [facility] 07/24/2022 05:55:56 procedure on parathyroid gland completed Not Available [facility] 07/24/2022 05:55:56 Imaging Results None recorded. Procedure Notes None recorded. Medical Equipment None Reported. Allergies No known drug allergies Medications Name Sig Start Date Stop Date Status Note LastModified by Organization Details LastModified Time losartan 50 mg tablet TAKE 1 TABLET BY MOUTH DAILY active Not Available Not Available No t Available hydrocodone 5 mg-acetamin ophen 325 mg tablet 12/19 completed Not Available Not Available Not Available amlodipine 5 mg tablet TAKE 1 TABLET BY MOUTH EVERY DAY 01/19 completed Not Available Not Available Not Available losartan 100 mg-hydrochl orothiazide 25 mg tablet 02/06 completed Not Available Not Available Not Available dexamethaso ne 1 mg tablet TAKE 1 TABLET BY MOUTH AT BEDTIME NEEDED FOR 1 DAY. active Not Available Not Available No t Available levothyroxi ne 50 mcg tablet Take 1 tablet every day by oral route in the morning for 30 days. 05/05 completed Not Available Not Available Not Available simvastatin 20 mg tablet TAKE 1 TABLET BY MOUTH DAILY active Not Available Not Available No t Available Synthroid 88 mcg tablet TAKE 1 TABLET EVERY MORNING ON AN EMPTY STOMACH FOR HYPOTHYRO IDISM active Not Available Not Available No t Available Synthroid 75 mcg tablet TAKE 1 TABLET DAILY 06/26 completed Not Available Not Available Not Available hydrochloro thiazide 25 mg tablet TAKE 1 TABLET BY MOUTH EVERY DAY 01/19 completed Not Available Not Available Not Available losartan 100 mg tablet TAKE 1 TABLET BY MOUTH EVERY DAY 01/19 completed Not Available Not Available Not Available Ozempic 0.25 mg or 0.5 mg (2 mg/1.5 mL) subcutaneou s pen injector INJECT 0.25MG UNDER THE SKIN ONCE WEEKLY X 4 WEEKS THEN INCREASE TO 0.5MG ONCE WEEKLY WITH FOOD 2022 active Not Available Not Available Not Avai lable Ozempic 0.25 mg or 0.5 mg (2 mg/3 mL) subcutaneou s pen injector INJECT 0.5 MG UNDER THE SKIN ONCE A WEEK 2022 active Not Available Not Available Not Avai lable Vitals Date Recorded Body mass index (BMI) Body height Oxygen saturation Oxygen saturation in Arterial blood by Pulse oximetry Heart rate Body temperature Body weight Systolic blood pressure Diastolic blood pressure Provider Name and Address Organization Details Last Updated DateTime 2 26 kg/m2 165.1 cm 99 % 99 % 72 /min 97.8 [degF] 81700.4 1 g 105 mm[Hg] 70 mm[Hg] Not Available [facility] 3 05:57:00 Date Recorded Body height Body mass index (BMI) Body weight Body temperature Heart rate Systolic blood pressure Diastolic blood pressure Provider Name and Address Organization Details Last Updated DateTime 3 165.1 cm 26.5 kg/m2 55698.1 9 g 97.5 [degF] 79 /min 118 mm[Hg] 71 mm[Hg] AMY Rendon [place] [facility] [place] [facility] 3 16:51:24 Social History Question Answer Notes LastModified by Organizat ion Details LastModified Time Tobacco Smoking Status Never Smoker Not Available [facility] 07/24/2022 05:53:29 What Is Your Level Of Alcohol Consumption? Occasional [id number] Information not available 07/24/2022 What Is Your Level Of Caffeine Consumption? Occasional [id number] Information not available 07/24/2022 In The 14 Days Before Symptom Onset, Have You Had Close Contact With A Laboratory-confir med COVID-19 While That Case Was Ill? No [id number] Information not available 07/24/2022 In The 14 Days Before Symptom Onset, Have You Had Close Contact With A Person Who Is Under Investigation For COVID-19 While That Person Was Ill? No [id number] Information not available 07/24/2022 What Type Of Diet Are You Following? REGULAR [id number] Information not available 07/24/2022 What Is The Highest Grade Or Level Of School You Have Completed Or The Highest Degree You Have Received? VT81793-4 [id number] Information not available 07/24/2022 What Is Your Occupation? [employer] [id number] Information not available 07/24/2022 What Is Your Relationship Status? [id number] Information not available 07/24/2022 Do You Use Your Seat Belt Or Car Seat Routinely? Yes [id number] Information not available 07/24/2022 Do You Use Any Illicit Or Recreational Drugs? No [id number] [id number] Information not available 07/24/2022 Has Tobacco Cessation Counseling Been Provided? No [id number] [id number] Information not available 07/24/2022 Have You Recently Traveled Abroad? No [id number] [id number] Information not available 07/24/2022 Do You Have Any Dietary Restrictions? No [id number].[id number] Information not available 07/24/2022 Do You Or Have You Ever Used Any Other Forms Of Tobacco Or Nicotine? No [id number] Information not available 07/24/2022 Sex: Female Functional Status None recorded. Mental Status None recorded. Family History Relationship Description Onset Age of this Age Resolved Age Notes LastModified by Organization Details LastModified Time Sister Diabetes mellitus [id number] Not available 07/24/2022 05:55:58 Sister Hypertensive disorder [id number] Not available 07/24/2022 05:55:58 Sister Hypercholest erolemia [id number] Not available 07/24/2022 05:55:58 Father Diabetes mellitus [id number] Not available 07/24/2022 05:55:58 Mother Hypertensive disorder [id number] Not available 07/24/2022 05:55:58 Mother Hypercholest erolemia [id number] Not available 07/24/2022 05:55:58 Medical History Condition Response HIGH CHOLESTEROL / HYPERLIPIDEMIA Y PARATHYROID DISEASE Y HYPERTENSION Y Gynecological HistoryNo gynecological history recorded. Obstetrics History GPAL:G 0 P 0 0 0 0 Past Encounters Encounter ID Performer Location Encounter Start Date Encounter Closed Date Diagnosis/Indication Diagnosis SNOMED-CT Code Diagnosis ICD10 Code Diagnosis Note [id number] [facility] [address] [place] [address] 01/19/2021 00:00:00 01/19/2021 17:16:07 [id number] [facility] [place] [facility] [address] [place] [address] 06/26/2021 00:00:00 06/26/2021 14:55:19 [id number] [facility] [place] [facility] [address] [place] [address] 01/08/2022 00:00:00 01/08/2022 17:08:52 [id number] Kalani Guzman MD [facility] [address] [place] [address] 08/15/2022 16:36:34 08/15/2022 17:15:33 Hypothyroidism 12855867 E03.9 TSH and FT4 in ideal range- continue synthroid 88 mcg daily. She was reminded to take her synthroid on empty stomach with glass of water and wait one hour to eat or have her coffee in morning and up to 4 hours if ever taking any heartburn or reflux medication s to help optimize absorption . Discussed paleo like diet with restrictio n of GMOs to help with energy and to optimize absorption of vitamins and minerals and reduce inflammati on. Impaired f asting glycemia 510918420 R73.01 Continue ozempic 0.5 mg once weekly as patient tolerating well. Discussed carb counting and how to read food labels. Recommende d patient to utilize the diabetesfo [employer]YR Free from the ADA website to help with food preparatio n as this presents ideal carb content per meal so this will make carb counting much easier for patient. Recommende d she incorporat e natural insulin metal mover s such as pears, apples, cinnamon, anton and sweet potatoes to help mobilize her endogenous insulin. Recommende d up to 150 minutes of moderate level activity/e xercise weekly. Spent up to 25 minutes preparing to see the patient (eg, review of tests), obtaining and/or reviewing separately obtained history, performing a medically appropriat e examinatio n and evaluation , counseling and educating the patient, ordering medication s, tests, along with documentin g clinical informatio n in the electronic health record, emen [place] interpreti ng results and communicat ing results to the patient. RTC in 6 months. Patient was provided a handwritte n lab order which contains our fax number. If she chooses to go outside of the [facility] system to obtain labwork she was advised to provide our fax number and my informatio n to the lab she will be obtaining labwork from in order to have her labs properly forwarded over for me to review so there is no loss of follow up due to use of outside network. She was also advised to contact our clinic informing us that she has completed her labwork so we are aware we will need to reach out to the appropriat e laboratory to request her results be forwarded to us so I might have the ability to review and make further medical decision making in her case. She voiced understand ing. Health Concerns Section Related Observation LastModified by Organization Detai ls LastModified Time None Recorded Concern Status LastModified by Organization Details LastModified Time None Recorded Advance Directives Directive None Recorded Payers Encounter Date Sequence Insurance Name Policy Number Policy Pineda Covered Member ID Pineda Member ID Guarantor Name 08/15/2022 1 [facility] [id number] Frieda Baeza [id number] Frieda Baeza Notes Date Note Type Note Provider Name and Address Organization Details Recorded Time 08/15/2022 text/html 62 yo female comes in for follow up in management of hypothyroidism, impaired fasting glucose and hypertension. last seen in December at that time we continued synthroid 88 mcg daily. we continued ozempic 0.5 mg once weekly and losartan 50 mg daily. She has lost over 20 pounds since starting ozempic- she has gained 3 pounds since her last visit. She is happy with her medications. Her blood pressure is running 100/60-70 mmHg. She has overall good energy and sleep. She did receive something from synthroid to update her script. labs from 1/18/23:microalbu min 13 ug/mgglucose 85 mg/dLCr normalLFT [id number]/88/66/8 9TSH of 0.667 uIU/mlFT4 of 1.32 ng/dLa1c 4.9% Kalani Guzman MD [address] [facility], [facility] [address], [place], [address], [place] [facility] 08/15/2022 17:58:49 OBGyn Episode No OBEpisode recorded.
--- OUTSIDE RECORDS SUMMARY | 2024-09-20 08:03 | XMS_ITS | Data Portability ---
Author Organization [facility] Address [address] [place] [address] Care Team Providers Care Rn Radiology Name Role Phone BERNARDO ANDRADE Primary Care Provider Assessment Encounter Date Assessment Date Assessment LastModified by Organization Details LastModified Time 12/21/2020 12/21/2020 Annual gynecological exam performed. Patient will come back in a year unless there are new symptoms. Not available 12/21/2020 10:10:35 08/22/2021 08/22/2021 IUD was removed without complications. She tolerated well. [email or web address] Not available 08/22/2021 18:29:35 01/23/2022 01/23/2022 Annual gynecological exam performed. Patient will come back in a year unless there are new symptoms. Not available 01/23/2022 17:48:02 02/10/2023 02/10/2023 Annual gynecological exam performed. Patient will come back in a year unless there are new symptoms. Not available 02/10/2023 16:24:04 02/23/2024 02/23/2024 Annual gynecological exam performed. Patient will come back in a year unless there are new symptoms. Not available 02/23/2024 17:37:28 Plan of Treatment Reminders Order Date Submit Date Provider Last Modified By Organization Details Last Modified Time Details Appointments None record ed. Lab None record ed. Referral None record ed. Procedures None record ed. Surgeries None record ed. Imaging None record ed. Medication Orders None record ed. Patient TargetsNo targets recorded. Patient InstructionsNo instructions recorded. Reason for Referral None Reported. Results Created Date Observation Date Name Description Value Unit Range Abnormal Flag Note LastModifiedBy Organization Detail LastModifiedTime 12/22/19 21 12/21/2020 IMAGE GUIDE D PAP AND HPV REGAR DLESS image guided Pap, HPV regardless of Pap result SEE RESULT S BELOW CASE REPOR T: Cytol ogy Gynec ologi dionte Repor t Case: [id number] Autho ari keys Provi ana cristina: Donna Ramirez MD Colle cted: 12/21 1445 Order ing Locat ion: [place] [facility] Recei ricarda: 12/22 0130 First Scree n: Noe Peacock , [place] Speci men: Scree ruddy Pap - Image d, Cervi x STATE MENT OF ADEQU ACY: Satis facto ry for evalu ation Trans forma tion zone compo nent prese nt FINAL DIAGN OSIS: Negat zee for Intra epith elial Lesio n or Malbelkys cummins Elect katherine ch sherita d by Noe Peacock , CT on 021 at 1:43 PM ----- ----- ----- ----- ----- ----- ----- ----- ----- ----- ----- ----- ----- ----- ----- ----- ----- ---- HPV RESUL TS: HPV mRNA E6/E7 : No HPV mRNA Detec pasha NOTE: This high risk HPV mRNA assay detec ts fourt een high- risk HPV types (16, 18, 31, 33, 35, 39, 45, 51, 52, 56, 58, 59, 66, 68) witho ut diffe renti ation . CHART ABLE COMME NT: Note: This speci men was revie wed by a Cytot echno logis t and/o r Patho logis t (as indic ated in this repor t) after evalu ation using the Thinp rep Imagi ng Syste m. CLINI DIONTE INFOR MATIO N: Menst rual Statu s: LMP (if appli cable ): 015 Clini dionte Histo ry/Pr eviou s Pap: Type of Neopl tim (if appli cable ): Signi fican t Clini dionte Findi ngs: Other Histo ry: Hormo wendy (if appli cable ): PAP EDUCA URIAH L NOTE: The Pap Test is a scree ruddy test with an inher ent false negat zee rate. Liqui d-bas e sampl ing may decre ase, but will not elimi ismael, false negat zee resul ts. A negat zee resul t does not precl ude the prese nce and/o r devel opmen t of disea se, since the prese nce of abnor mal cells in the sampl e depen ds on the locat ion of the lesio n and sampl ing techn ique. Joel nued regul ar scree ruddy is the best metho d of cance r preve ntion . If repor pasha cytol ogic findi ng do not corre late with physi dionte and/o r histo rical findi ngs, furth er inves tigat ion is recom gurpreet d, as clini [place] warra nted. Not Available [facility] (Lab) [address], [place], [address], 12/24/2020 14:45:41 01/24/20 22 01/23/2022 IMAGE GUIDE D PAP AND HPV REGAR DLESS image guided Pap, HPV regardless of Pap result SEE RESULT S BELOW CASE REPOR T: Cytol ogy Gynec ologi dionte Repor t Case: [id number] Autho ari g Provi ana cristina: Donna Ramirez MD Colle cted: 01/23 1756 Order ing Locat ion: [place] [facility] [place] Recei ricarda: 01/24 0301 First Scree n: Susanna bajwa, Vandana , [place] Speci men: Scree ruddy Pap - Image d, Cervi x STATE MENT OF ADEQU ACY: Satis facto ry for evalu ation Trans forma tion zone compo nent prese nt FINAL DIAGN OSIS: Negat zee for Intra epith elial Lesio n or Malig maria g (NIL) . Atrop hy prese nt. Elect ronic jing davila by Vandana Combs CT on 022 at 1:47 PM ----- ----- ----- ----- ----- ----- ----- ----- ----- ----- ----- ----- ----- ----- ----- ----- ----- ---- HPV RESUL TS: HPV mRNA E6/E7 : No HPV mRNA Detec pasha NOTE: This high risk HPV mRNA assay detec ts fourt een high- risk HPV types (16, 18, 31, 33, 35, 39, 45, 51, 52, 56, 58, 59, 66, 68) witho ut diffe renti ation . COMME NT: Note: This speci men was revie wed by a Cytot echno logis t and/o r Patho logis t (as indic ated in this repor t) after evalu ation using the Thinp rep Imagi ng Syste m. CLINI DIONTE INFOR MATIO N: Menst rual Statu s: LMP (if appli cable ): Clini dionte Histo ry/Pr eviou s Pap: Type of Neopl tim (if appli cable ): Signi fican t Clini dionte Findi ngs: Other Histo ry: Hormo wendy (if appli cable ): PAP EDUCA URIAH L NOTE: The Pap Test is a scree ruddy test with an inher ent false negat zee rate. Liqui d-bas ed sampl ing may decre ase, but will not elimi ismael, false negat zee resul ts. A negat zee resul t does not precl ude the prese nce and/o r devel opmen t of disea se, since the prese nce of abnor mal cells in the sampl e depen ds on the locat ion of the lesio n and sampl ing techn ique. Joel nued regul ar scree ruddy is the best metho d of cance r preve ntion . If repor pasha cytol ogic findi ng do not corre late with physi dionte and/o r histo rical findi ngs, furth er inves tigat ion is recom gurpreet d, as clini [place] preciado nted. Not Available [facility] [id number], [place], [address], 01/30/2022 14:49:34 02/11/20 23 02/10/2023 IMAGE GUIDE D PAP AND HPV REGAR DLESS image guided Pap, HPV regardless of Pap result SEE RESULT S BELOW CASE REPOR T: Cytol ogy Gynec ologi dionte Repor t Case: [id number] Autho ari g Provi ana cristina: Donna Ramirez MD Colle cted: 02/10 1730 Order ing Locat ion: [place] [facility] [place] Recei ricarda: 02/11 0702 First Scree n: Marii Echeverria Speci men: Vivi fox Pap - Image d, Cervi x STATE MENT OF ADEQU ACY: Satis facto ry for evalu ation Trans forma tion zone compo nent prese nt FINAL DIAGN OSIS: Negat zee for Intra epith elial Devan torres or Anastasia cummins (NIL) . Elect katherine ch sherita d by Marii Echeverria on 2022 at 7:44 PM ----- ----- ----- ----- ----- ----- ----- ----- ----- ----- ----- ----- ----- ----- ----- ----- ----- ---- HPV RESUL TS: HPV mRNA E6/E7 : No HPV mRNA Detec pasha NOTE: This high risk HPV mRNA assay detec ts fourt een high- risk HPV types (16, 18, 31, 33, 35, 39, 45, 51, 52, 56, 58, 59, 66, 68) witho ut diffe renti ation . COMME NT: This speci men was revie wed by a Cytot echno logis t and/o r Patho logis t (as indic ated in this repor t) after evalu ation using the Thinp rep Imagi ng Syste m. CLINI DIONTE INFOR MATIO N: Menst rual Statu s: LMP (if appli cable ): Clini dionte Histo ry/Pr eviou s Pap: Type of Neopl tim (if appli cable ): Signi fican t Clini dionte Findi ngs: Other Histo ry: Hormo wendy (if appli cable ): PAP EDUCA URIAH L NOTE: The Pap Test is a scree ruddy test with an inher ent false negat zee rate. Liqui d-bas ed sampl ing may decre ase, but will not elimi ismael, false negat zee resul ts. A negat zee resul t does not precl ude the prese nce and/o r devel opmen t of disea se, since the prese nce of abnor mal cells in the sampl e depen ds on the locat ion of the lesio n and sampl ing techn ique. Joel nued regul ar scree ruddy is the best metho d of cance r preve ntion . If repor pasha cytol ogic findi ng do not corre late with physi dionte and/o r histo rical findi ngs, furth er inves tigat ion is recom gurpreet d, as clini [place] preciado nted. Not Available [facility] (Lab) [address], [place], [address], 02/11/2023 20:47:40 02/23/20 24 02/23/2024 IMAGE GUIDE D PAP AND HPV REGAR DLESS image guided Pap, HPV regardless of Pap result SEE RESULT S BELOW CASE REPOR T: Cytol ogy Gynec ologi dionte Repor t Case: [id number] Autho ari g Provi ana cristina: Donna Ramirez MD Colle cted: 02/22 1706 Order ing Locat ion: [place] [facility] [place] Recei ricarda: 02/23 0226 First Scree n: Strut z, Willi am, CT Speci men: Scree ruddy Pap - Image d, Cervi x STATE MENT OF ADEQU ACY: Satis facto ry for evalu ation Trans forma tion zone compo nent canno t be defin itive ly ident ified due to the prese nce of atrop hy or other hormo nal espitia es ----- ----- ----- ----- ----- ----- ----- ----- ----- ----- ----- ----- ----- ----- ----- ----- ----- ---- FINAL DIAGN OSIS: Negat zee for Intra epith elial Lesio n or Anastasia cummins (NIL) . Atrop hic cell chet hart. Elect katherine davila by Romulo funk, Luis Daniel dickinson, CT on 2023 at 10:57 AM ----- ----- ----- ----- ----- ----- ----- ----- ----- ----- ----- ----- ----- ----- ----- ----- ----- ---- HPV RESUL TS: HPV mRNA E6/E7 : No HPV mRNA Detec pasha NOTE: This high risk HPV mRNA assay detec ts fourt een high- risk HPV types (16, 18, 31, 33, 35, 39, 45, 51, 52, 56, 58, 59, 66, 68) witho ut diffe renti ation . COMME NT: Slide scree pradeep keaton abdalla due to rejec tion by the Thinp rep Imagi ng Syste m. CLINI DIONTE INFOR MATIO N: Menst rual Statu s: LMP (if appli cable ): Clini dionte Histo ry/Pr eviou s Pap: Type of Neopl tim (if appli cable ): Signubaldo coulter Clini dionte Findi ngs: Other Histo ry: Hormo wendy (if appli cable ): PAP EDUCA URIAH L NOTE: The Pap Test is a scree ruddy test with an inher ent false negat zee rate. Liqui d-bas ed sampl ing may decre ase, but will not elimi ismael, false negat zee resul ts. A negat zee resul t does not precl ude the prese nce and/o r devel opmen t of disea se, since the prese nce of abnor mal cells in the sampl e depen ds on the locat ion of the lesio n and sampl ing techn ique. Joel nued regul ar scree ruddy is the best metho d of cance r preve ntion . If repor pasha cytol ogic findi ng do not corre late with physi dionte and/o r histo rical findi ngs, furth er inves tigat ion is recom gurpreet d, as clini [place] warra nted. Not Available [facility] (Lab) [address], [place], [address], 03/01/2024 12:00:52 04/23/20 21 04/20/2021 MAMMO , scree ruddy, digit al, bilat eral No observ ation record ed. [address], [address], 05/06/2021 19:22:24 06/14/19 23 06/14/2022 MAMMO , scree ruddy, bilat eral No observ ation record ed. [address] [address], [place], [address], 06/16/2022 10:46:28 06/15/19 23 06/14/2022 MAMMO , scree ruddy, bilat eral No observ ation record ed. [address] [address], [place], [address], 06/16/2022 17:02:09 06/19/19 23 06/19/2022 MAMMO , diagn ostic , digit al, unila teral No observ ation record ed. [address], [address], 06/20/2022 18:38:36 12/18/19 23 12/17/2022 imagi ng/di agnos tic resul t No observ ation record ed. [facility] [address], [place], [address], 12/18/2022 17:12:38 12/18/19 23 12/17/2022 imagi ng/di agnos tic resul t No observ ation record ed. [facility] [address], [place], [address], 12/28/2022 16:09:39 Result Notes None recorded. Problems Name Problem SNOMED Code Status Onset Date Resolution Date Notes Provider Name and Address Organization Details Recorded Time Pregnanc y test negative [id number] Completed 201512/21/2020 Encounte r for pregnanc y test, result negative ;Recorde d Elsewher e: No Locat ion: [facility] S ource: EHR Career Development Engineer cece: N Wenditi ce ID: [id number] Thai lable Time: 08:30:00 AM Frieda [facility] 10:11:45 Evaluati on finding Completed 201612/21/2020 Hematuri a, unspecif ied;Branden rded Elsewher e: No Locat ion: [facility] S ource: EHR Career Development Engineer cece: N Practi ce ID: [id number] Thai lable Time: 08:45:00 AM Frieda [facility] 10:11:[address] Concept Completed 201712/21/2020 Well woman check w/o abnormal finding; Recorded Elsewher e: No Locat ion: [facility] S ource: EHR Career Development Engineer cece: N Practi ce ID: [id number] Thai lable Time: 08:30:00 AM Frieda [facility] 10:12:04 Speciali zed medical examinat ion Completed 201112/21/2020 Gynecolo gical Examinat ion;Branden rded Elsewher e: No Locat ion: [facility] S ource: EHR Career Development Engineer cece: N Practi ce ID: [id number] Thai lable Time: 05:00:00 PM Friedalalito Lawrence [facility] 1 10:12:07 Atypical glandula r cells on cervical Papanico laou smear [id number] Active 2010 Abnormal glandula r Papanico laou smear of cervix;R ecorded Elsewher e: No Locat ion: [facility] S ource: EHR Career Development Engineer cece: N Milagros ce ID: [id number] Thai lable Time: 11:45:00 AM Not Available [facility] 0 17:26:58 Screenin g for malignan t neoplasm of rectum Completed 201612/21/2020 Encounte r for screenin g for malignan t neoplasm of rectum;R ecorded Elsewher e: No Locat ion: [facility] S ource: [facility]: Jerry Linares ce ID: [id number] Thai lable Time: 08:45:00 AM Frieda [facility] 1 10:12:00 Meat Slicer al complica tion of intraute rine contrace ptive device Completed 201512/21/2020 Displace ment of intraute rine contrace ptive device, init;Rec orded Elsewher e: No Locat ion: [facility] S ource: [facility]: Jerry Linares ce ID: [id number] Thai lable Time: 08:45:00 AM Friedalalito Lawrence [facility] 1 10:11:41 Clinical finding Completed 201512/21/2020 Presence of (intraut erine) contrace ptive device;R ecorded Elsewher e: No Locat ion: [facility] S ource: [facility]: Jerry Linares ce ID: [id number] Thai lable Time: 08:30:00 AM Frieda [facility] 1 10:11:33 Insertio n of intraute rine contrace ptive device Completed 201512/21/2020 Encounte r for insertio n of intraute rine contrace ptive device;R ecorded Elsewher e: No Locat ion: [facility] S ource: EHR Career Development Engineer cece: N Wenditi ce ID: [id number] Thai lable Time: 08:30:00 AM Frieda Lawrence [facility] 10:11:[address] Concept Completed 201512/21/2020 Encntr for general adult medical exam w/o abnormal findings ;Recorde d Elsewher e: No Locat ion: [facility] S ource: EHR Career Development Engineer cece: N Practi ce ID: [id number] Thai lable Time: 08:30:00 AM Frieda Lawrence [facility] 10:12:03 Adult health examinat ion Completed 201412/21/2020 Routine general medical examinat ion at a [facility] facility ;Practic e ID: [id number] Frieda Lawrence [facility] 10:11:30 Screenin g for malignan t neoplasm of cervix Completed 201412/21/2020 Pap Smear;Pr actice ID: [id number] Friedalalito Lawrnece [facility] 10:11:58 Removal of intraute rine device Completed 201512/21/2020 Encounte r for removal of intraute rine contrace ptive device;P ractice ID: [id number] Frieda Lawrence [facility] 10:11:[address] Concept Completed 201612/21/2020 Encounte r for general adult medical exam w abnormal findings ;Practic e ID: 0001 Friedalalito Lawrence [facility] 10:11:48 Problem Notes None recorded. Procedures Surgical History Date Name Laterality Status Provider Name and Address Organization Details Recorded Time 024 Date of Last Mammogram completed Stefanie Bills [facility] 02/23/2024 17:39:35 023 Date of Last Pap Smear completed Frieda Lawrence [facility] 02/10/2023 16:25:15 022 IUD Removal completed Benton Ramirez MD [address], [place], [address], [facility] 08/22/2021 18:30:22 020 Excision and closure completed Benton Ramirez MD [address], [place], [address], [facility] 12/17/2019 22:25:31 019 parathyroidectomy completed Friedalalito Lawrence [facility] 12/21/2020 10:36:19 Imaging Results Imaging Date Name Status [facility] Details LastModified Time 04/20/2021 MAMMO, screening, digital, bilateral completed [address] [place] [address], [address], 05/06/2021 19:22:24 06/14/2022 MAMMO, screening, bilateral completed [address] [facility], [place], [address], 06/16/2022 10:46:28 06/14/2022 MAMMO, screening, bilateral completed [address], [address], 06/16/2022 17:02:09 06/19/2022 MAMMO, diagnostic, digital, unilateral completed [address] [place] [address], [address], 06/20/2022 18:38:36 12/17/2022 imaging/diagnos tic result completed [address] [place] [address], [address], 12/18/2022 17:12:38 12/17/2022 imaging/diagnos tic result completed [facility] [address], [place], [address], 12/28/2022 16:09:39 Procedure Notes None recorded. Medical Equipment None Reported. Allergies No known drug allergies Medications Name Sig Start Date Stop Date Status Note LastModified by Organization Details LastModified Time losartan 50 mg tablet TAKE 1 TABLET BY MOUTH DAILY active Not Available Not Available No t Available Mirena 21 mcg/24 hr (up to 8 years) 52 mg intrauter ine device 08/22 completed Prescrib ed Elsewher e: Yes Loca tion: [facility] odify By: angle jimenez DateTime : 11/05/19 19 11:00:00 AM Not Available Not Available Not Available atorvasta tin 20 mg tablet take 1 tablet by oral route every day 06/27 completed Prescrib ed Elsewher e: Yes [facility] By: suresh jimenez DateTime : 06/09/19 15 08:30:00 AM Not Available Not Available Not Available hydrocodo ne 5 mg-acetam inophen 325 mg tablet 08/22 completed Not Available Not Available Not Available amlodipin e 5 mg tablet TAKE 1 TABLET BY MOUTH EVERY DAY 08/22 completed Not Available Not Available Not Available levothyro xine 75 mcg tablet TAKE 1 TABLET BY MOUTH EVERY DAY IN THE MORNING 08/22 completed Not Available Not Available Not Available losartan 100 mg-hydroc hlorothia zide 25 mg tablet take 1 tablet by oral route every day 12/21 completed Prescrib ed Elsewher e: Yes Loca tion: [facility] odify By: la hartman DateTime : 06/09/19 15 08:30:00 AM Not Available Not Available Not Available dexametha sone 1 mg tablet TAKE 1 TABLET BY MOUTH AT BEDTIME NEEDED FOR 1 DAY. 08/22 completed Not Available Not Available Not Available simvastat in 5 mg tablet take 1 tablet by oral route every day in the evening 08/22 completed Prescrib ed Elsewher e: Yes [facility] odify By: suresh Eric tony DateTime : 06/27/19 16 08:30:00 AM Not Available Not Available Not Available simvastat in 20 mg tablet TAKE 1 TABLET BY MOUTH EVERY DAY active Not Available Not Available No t Available betametha sone dipropion ate 0.05 % topical cream APPLY TOPICALL Y DAILY NEEDED FOR RASH- DO NOT USE FOR MORE THAN 14 DAYS AT A TIME 02/22 completed Not Available Not Available Not Available hydrochlo rothiazid e 25 mg tablet TAKE 1 TABLET BY MOUTH EVERY DAY 08/22 completed Not Available Not Available Not Available Micardis 20 mg tablet take 1 tablet by oral route every day 06/09 completed Prescrib ed Elsewher e: Yes Loca tion: [facility] odify By: la hartman DateTime : 01/08/20 12 05:00:00 PM Not Available Not Available Not Available losartan 100 mg tablet TAKE 1 TABLET BY MOUTH EVERY DAY 12/21 completed Not Available Not Available Not Available Calcio Tegan 500 mg tablet 04/28 completed Prescrib ed Elsewher e: Yes [facility] odify By: la hartman DateTime : 01/08/20 12 05:00:00 PM Not Available Not Available Not Available Synthroid active Not Available Not Karine ilable Not Available Simcor 1,000 mg-20 mg tablet,ex tended release take 1 tablet by oral route every day at bedtime after a low-fat snack 06/09 completed Prescrib ed Elsewher e: Yes Loca tion: [facility] odify By: la hartman DateTime : 01/08/20 12 05:00:00 PM Not Available Not Available Not Available nisoldipi ne ER 8.5 mg tablet,ex tended release 24 hr take 1 tablet by oral route every day 06/09 completed Prescrib ed Elsewher e: Yes [facility] odify By: la hartman DateTime : 01/08/20 12 05:00:00 PM Not Available Not Available Not Available amlodipin e besylate (bulk) 100 % powder 08/22 completed Prescrib ed Elsewher e: Yes [facility] By: la hartman DateTime : 06/09/19 15 08:30:00 AM Not Available Not Available Not Available Fish Oil 100 mg-160 mg-1,000 mg capsule 04/28 completed Prescrib ed Elsewher e: Yes Loca tion: [facility] odify By: la hartman DateTime : 01/08/20 12 05:00:00 PM Not Available Not Available Not Available Ozempic 0.25 mg or 0.5 mg (2 mg/1.5 mL) subcutane ous pen injector INJECT 0.25MG UNDER THE SKIN ONCE WEEKLY X 4 WEEKS THEN INCREASE TO 0.5MG ONCE WEEKLY WITH FOOD 02/10 completed Not Available Not Available Not Available Ozempic 0.25 mg or 0.5 mg (2 mg/3 mL) subcutane ous pen injector INJECT 0.5 MG UNDER THE SKIN ONCE A WEEK 02/22 completed Not Available Not Available Not Available Vitals Date Recorded Body height Body mass index (BMI) Body weight Systolic blood pressure Diastolic blood pressure Provider Name and Address Organization Details Last Updated DateTime 12/21/2020 164.47 cm 27.7 kg/m2 88390.74 g 119 mm[Hg] 73 mm[Hg] [facility] 1 10:35:01 Date Recorded Body height Body mass index (BMI) Body weight Systolic blood pressure Diastolic blood pressure Provider Name and Address Organization Details Last Updated DateTime 08/22/2021 164.47 cm 27.7 kg/m2 33685.74 g 127 mm[Hg] 85 mm[Hg] [facility] 2 17:27:06 Date Recorded Body height Body mass index (BMI) Body weight Systolic blood pressure Diastolic blood pressure Provider Name and Address Organization Details Last Updated DateTime 01/23/2022 164.47 cm 25.8 kg/m2 44519.22 g 118 mm[Hg] 69 mm[Hg] [facility] 2 17:54:46 Date Recorded Body height Body mass index (BMI) Body weight Systolic blood pressure Diastolic blood pressure Provider Name and Address Organization Details Last Updated DateTime 02/10/2023 164.47 cm 26.2 kg/m2 50616.41 g 110 mm[Hg] 69 mm[Hg] Frieda Lawrence [facility] 3 16:24:24 Date Recorded Body height Body mass index (BMI) Body weight Systolic blood pressure Diastolic blood pressure Provider Name and Address Organization Details Last Updated DateTime 02/23/2024 164.47 cm 26.4 kg/m2 75833.44 g 121 mm[Hg] 79 mm[Hg] Stefanie Bills [facility] 4 17:38:11 Social History Question Answer Notes LastModified by Organizat ion Details LastModified Time Tobacco Smoking Status Never Smoker Ivette blackwood, [facility] 02/10/2023 15:57:20 What Is Your Level Of Alcohol Consumption? Occasional Information not available 01/23/2022 Are You Blind Or Do You Have Difficulty Seeing? No Information not available 12/21/2020 What Is Your Level Of Caffeine Consumption? Occasional Information not available 12/21/2020 How Much Tobacco Do You Chew? None Information not available 12/21/2020 In The 14 Days Before Symptom Onset, Have You Had Close Contact With A Laboratory-confir med COVID-19 While That Case Was Ill? No Information not available 12/21/2020 In The 14 Days Before Symptom Onset, Have You Had Close Contact With A Person Who Is Under Investigation For COVID-19 While That Person Was Ill? No Information not available 12/21/2020 Have You Been To An Area Known To Be High Risk For COVID-19? No Information not available 12/21/2020 Are You Deaf Or Do You Have Serious Difficulty Hearing? No Information not available 12/21/2020 What Type Of Diet Are You Following? GLUTENFREE Information not available 12/21/2020 What Is The Highest Grade Or Level Of School You Have Completed Or The Highest Degree You Have Received? 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 No Information not available 12/21/2020 Do You Use Protection During Sex? Usually Information not available 12/21/2020 Do You Use Your Seat Belt Or Car Seat Routinely? Yes Information not available 12/21/2020 Do You Have Smoke And Carbon Monoxide Detectors In Your Home? Yes Information not available 12/21/2020 How Much Tobacco Do You Smoke? No Information not available 12/21/2020 Do You Feel Stressed (tense, Restless, Nervous, Or Anxious, Or Unable To Sleep At Night)? [id number] Information not available 12/21/2020 Do You Use Any Illicit Or Recreational Drugs? No Information not available 12/21/2020 Do You Use Sunscreen Routinely? No Information not available 12/21/2020 Have You Used IV Drugs? No Information not available 12/21/2020 Sex: Unknown Functional Status Question Answer Note LastModified by Organization D etails LastModified Time Are you able to walk? YESWOREST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
--- OUTSIDE RECORDS SUMMARY | 2024-09-20 08:03 | XMS_ITS | Clinical Summary ---
Author Organization [facility] Address [address] [place] [address] Care Team Providers Care Scientific Director Name Role Phone Babatunde Mccall MD Primary Care Provider [phone] Source Comments [facility],non-owned Affiliates and Associated Physician Practices is amultiple site organization consisting of ambulatory clinics and hospital sitesin [place], [place], [place] and [place]. This disclosure is being madepursuant to the Care Everywhere program and may not contain all information available regarding this patient. Last updated 18.[facility] Allergies No known active allergies Medications * Be aware that medications may not be up to date on this document. Alwaysverify current medications with the patient. simvastatin (ZOCOR) 20 MG tablet Take 20 mg by mouth at bedtime Active amLODIPine (NORVASC) 5 MG tablet Take 5 mg by mouth once daily Active losartan (COZAAR) 100 MG tablet Take 100 mg by mouth once daily Active hydroCHLOROthia zide (HYDRODIURIL) 25 MG tablet Take 25 mg by mouth once daily Active vitamin D3 (CHOLECALCIFERO L) 400 UNIT tablet Take 400 Units by mouth once daily Active loratadine (CLARITIN) 10 MG tablet Take 10 mg by mouth once daily Active docusate sodium (COLACE) 100 MG capsule Take 1 capsule by mouth 2 times daily as needed for Constipation 20 capsule 1 0 Active levothyroxine (SYNTHROID) 50 MCG tablet every 24 hours Acti ve Active Problems Problem Noted Date Diagnosed Date Hyperparathyroidism 03/31/2019 Hypercalcemia 03/31/2019 Other osteoporosis without current pathological fracture 03/31/2019 Hyperlipidemia 12/28/2018 Hypertensive disorder 12/28/2018 Immunizations Immunization Administration Dates Next Due INFLUENZA VACCINE 03/18/2019 Family History Medical History Relation Name Comments Dementia Father Diabetes - Type 2 Father Hypertension Mother Osteoporosis Mother Anesthesia Reaction Other daughter Hypertension Sister Relation Name Status Comments Father Mother Other daughter nausea and vomi ting Sister Social History Tobacco Use Types Packs/Day Years Used Date Smoking Tobacco: Never Smokeless Tobacco: Never Alcohol Use Standard Drinks/Week Comments Yes 1 (1 standard drink = 0.6 oz pur e alcohol) occsionally Comments No Sex and Gender Information Value Date Recorded Sex Assigned at Not on file Legal Sex Female 6:13 AM 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 Gender Identity Not on file Sexual Orientation Not on file Last Filed Vital Signs Vital Sign Reading Time Taken Comments Blood Pressure 128/72 02/11/2020 12:10 PM CDT Pulse 90 02/11/2020 12:10 PM CDT Temperature 36.9 C (98.5 F) 06/02/2019 7:54 AM 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 Respiratory Rate 16 06/02/2019 7:56 AM 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 Oxygen Saturation 98% 06/02/2019 7:54 AM 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 Inhaled Oxygen Concentration - - Weight 78.7 kg (173 lb 9.6 oz) 02/11/2020 12:10 PM CDT Height 165.1 cm (5' 5 ) 02/11/2020 12:10 PM CDT Body Mass Index 28.89 02/11/2020 12:10 PM CDT Plan of Treatment Health Maintenance Due Date Last Done Comments COLOGUARD (AGES 45-75) - COL ON CA SCREENING 1962 COLON MONITORING 1962 COLONOSCOPY - COLON CA SCREENING 1962 CT COLONOGRAPHY - COLON CA SCREENING 1962 Colorectal Cancer Screening 1962 FIT - COLON CA SCREENING 1962 FLEX SIG - COLON CA SCREENING 1962 MAMMOGRAM 1962 HIV SCREENING 1977 HEPATITIS C SCREENING 06/26/1980 DTAP/TDAP/TD VACCINES (1 - Tdap) 1981 PNEUMOCOCCAL VACCINE 50+ (1 of 1 - PCV) 2012 ZOSTER VACCINE (1 of 2) 2012 SCREENING FOR DIABETES 05/11/2022 05/11/2019 COVID-19 VACCINE ( - 2023-2 5 season) 2024 DEPRESSION SCREENING 05/26/2024 INFLUENZA VACCINE (Season Ended) 2025 03/18/20 Respiratory Syncytial Virus (RSV) Vaccine Pt: or over 60 yrs (1 - 1-dose 75+ series) 2037 HEPATITIS B VACCINE Aged Out No longe r eligible based on patient's age to complete this topic HIB VACCINE Aged Out No longer eligi ble based on patient's age to complete this topic HPV VACCINE Aged Out No longer eligi ble based on patient's age to complete this topic MENINGOCOCCAL (Group B) VACC INE SHARED DECISION-MAKING Aged Out No longer eligibl e based on patient's age to complete this topic MENINGOCOCCAL GROUPS A/C/Y/W VACCINE Aged Out No longer eligible b ased on patient's age to complete this topic Procedures Procedure Name Priority Date/Time Associated Diagnosis Comments BASIC METABOLIC PANEL (CALCIUM TOTAL) Routine 05/11/2019 8:52 AM 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 Pre-op evaluation from Last 3 Months or Most Recently Relevant to Health Maintenance Results * (ABNORMAL) BASIC METABOLIC PANEL (CALCIUM TOTAL) (05/11/2019 8:52 AM 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) BUN 14 7 - 26 mg/dL 05/11/2019 10:25 AM [facility] Creatinine 0.7 0.6 - 1.2 mg/dL 05/11/2019 10:25 AM [facility] Sodium 144 136 - 145 mmol/L 05/11/2019 10:25 AM [facility] Potassium 4.2 3.5 - 4.5 mmol/L 05/11/2019 10:25 AM [facility] Chloride 106 98 - 107 mmol/L 05/11/2019 10:25 AM [facility] CO2 26 22 - 29 mmol/L 05/11/2019 10:25 AM [facility] Glucose 111 70 - 115 mg/dL 05/11/2019 10:25 AM [facility] Calcium 10.7(H) 8.4 - 10.2 mg/dL 05/11/2019 10:25 AM [facility] Anion Gap 16 8 - 18 05/11/2019 10:25 AM [facility] BUN/Creatinine Ratio 20 7 - 23 05/11/2019 10:25 AM [facility] Osmolality Calculated 299 270 - 300 mOsm/kg 05/11/2019 10:25 AM [facility] eGFR >60 >60 mL/min/1.7 3 m2 05/11/2019 10:25 AM [facility] Blood BLOOD SPECIMEN / Unknown Lab Venipuncture / Unknown 05/11/2019 8:52 AM 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 05/11/2019 9:49 AM 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 Marianne Lucas BUNDLE CLERK-PLUMBER'S ASSISTANT LAB - CHEMISTRY O RDERABLES Final Result [facility] [address] [phone] from Last 3 Months or Most Recently Relevant to Health Maintenance Insurance Member Subscriber Plan / Payer (Ef fective 2018-Present) Name:Frieda Brooks Relation to Subscriber:Self Name:FRIEDA BROOKS Payer ID:[id number] (NAIC) Type:PPO Address: [place] [phone] Advance Directives * Full Code (Latest Code Status on File) Date Activated Date Inactivated Comments 06/01/2019 4:10 PM 06/02/2019 11:49 AM Care Teams Scientific Director Relationship Specialty Start Date End Date Babatunde Mccall MD [address] [place] [id number] PCP - General 03/22/19
[2024-09-20 08:48] LABS: Alanine Aminotransferase 22 U/L (6-35); Albumin Level 4.3 g/dL (3.5-5.1); Alkaline Phosphatase 87 U/L (38-126); Anion Gap 6 mmol/L (4-12); Aspartate Amino Transferase 24 U/L (14-36); Blood Urea Nitrogen 21 mg/dL (7-17); Calcium 9.1 mg/dL (8.4-10.2); Carbon Dioxide 29 mmol/L (22-30); Chloride 105 mmol/L (98-107); Cholesterol 202 mg/dL (0-200); Estimated Glomerular Filt Rate > 60; Glucose 87 mg/dL (65-110); HDL Direct 59 mg/dL; Potassium 3.8 mmol/L (3.4-5.0); Sodium 140 mmol/L (137-145); Triglycerides 72 mg/dL (<150)
[2024-09-20 08:59] LABS: LDL Cholesterol Direct 98 mg/dL
[2024-09-20 09:02] LABS: Parathyroid Intact 48.1 pg/mL (14.5-75.2)
[2024-09-22 14:37] LABS: Ionized Calcium 5.1 mg/dL (4.7-5.5)
== END 2024-09-20 07:55 | disposition home or self-care (01) ==
LOC: ANHLAB 07:57
PROVIDERS: PCP Family Medicine; Referring Provider Family Medicine; Visit Provider Internal Medicine
DX: Z00.00 Encounter for general adult medical examination without abnormal findings (principal); I10 Essential (primary) hypertension; E78.2 Mixed hyperlipidemia; R73.03 Prediabetes; E03.9 Hypothyroidism, unspecified; E21.0 Primary hyperparathyroidism
CPT/HCPCS: 36415; 80053; 80061; 82330; 83970; 84439; 84443

== ENCOUNTER 2024-10-14 13:09 | Outpatient (CLI) | payer OTHER, SELFPAY ==
--- NOTE | ~2024-10-14 | DEXA_ITS ---
Bone Density Report Name: CHADWICK BROOKS Age: 64 Sex: Female Ethnicity: White Date of : 1960 Indication: postmenopausal osteoporosis; hyperparathyroidism; parental hip fracture; height loss; Referring Provider: GABE ODONNELL Study: Bone densitometry was performed. Exam Date: October 14, 2024 Accession number: [id number] Bone Density: Region BMD T-score Z-score Classification Total Forearm (Right) 0.388 -3.5 -2.1 1/3 Forearm (Right) 0.497 -3.3 -1.8 UD Forearm (Right) 0.241 -3.5 -2.5 World Health Organization criteria for BMD impression classify patients as: Normal (T-score at or above -1.0), Osteopenia (T-score between -1.0 and -2.5), or Osteoporosis (T-score at or below -2.5). Previous Exams: Region Exam Age BMD T-score BMD Change BMD Change Date g/cm2 vs Baseline vs Previous 05/28 Forearm(Right) 10/14/2024 64 0.497 -3.3 -0.049 (-9.0%) -0.049 (-9.0%) 01/15/2019 58 0.546 -2.5 *Denotes significance at 95% confidence level, LSC for 05/28 Forearm = 0.023 g/cm2 Clinical Information Provided by Patient: Parent has had a hip fracture Has used the following medications: Vitamin D Has the following medical conditions: Hyperparathyroidism Patient maximum height was 66.0 No regular weight bearing exercise Does not regularly consume dairy products Onset of menses at age 15 Number of children 4 Impression: The patient has osteoporosis, based on the Right Third Radius T-score. The patient has risk factors, including: parental hip fracture. The BMD for the 1/3 Forearm(Right) decreased, changing by -9.0% since the last DXA exam. Discussion: INCREASED RISK OF FRACTURE. BONE DENSITY IS UNDESIRABLY LOW AT ONE OR MORE SKELETAL SITES, CONSISTENT WITH POSTMENOPAUSAL OSTEOPOROSIS. This patient's lowest T-score meets the World Health Organization's (WHO) criteria for osteoporosis at one or more sites (T-score -2.5 or below). In untreated patients, the risk of osteoporotic fracture increases approximately two-fold for each 1.0 SD decrease in T-score. Low bone density is not the only risk factor for fracture; also consider factors such as patient's age, frailty or poor health, risk of falling, risk of injury, previous osteoporotic fracture, family history of osteoporosis, cigarette smoking, low body weight, etc. Not everyone with low bone mineral density has osteoporosis; osteomalacia and other metabolic bone disorders should also be considered. Patients who have osteoporosis should be evaluated for specific diseases and conditions (secondary causes) that may cause or contribute to bone loss. The [place] Association of Clinical Endocrinologists (AACE) and National Osteoporosis Foundation (NOF) recommend pharmacologic intervention for all postmenopausal women whose T-score is in this range. The patient should follow a healthful lifestyle (good nutrition with adequate calcium and vitamin D, and appropriate weight-bearing exercise). Follow-Up: Consider a repeat BMD and Vertebral Fracture Assessment (VFA) exam in 2 years or sooner if medically necessary, to reassess this patient's status. Reported by: LAURITA on 10/14/2024 1:46:00 PM. Reviewed, dictated and finalized at location A.
--- OUTSIDE RECORDS SUMMARY | 2024-10-14 13:11 | XMS_ITS | Clinical Summary ---
Author Organization [facility] Address [address] [place] [address] Care Team Providers Care Generalist Name Role Phone Babatunde Mccall MD Primary Care Provider [phone] Source Comments [facility],non-owned Affiliates and Associated Physician Practices is amultiple site organization consisting of ambulatory clinics and hospital sitesin [place], [place], [place] and [place]. This disclosure is being madepursuant to the Care Everywhere program and may not contain all information available regarding this patient. 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 Gender Identity Not on file Sexual Orientation Not on file Last Filed Vital Signs Vital Sign Reading Time Taken Comments Blood Pressure 128/72 02/11/2020 12:10 PM CDT Pulse 90 02/11/2020 12:10 PM CDT Temperature 36.9 C (98.5 F) 06/02/2019 7:54 AM TUBULAR SPLITTING MACHINE TENDER Respiratory Rate 16 06/02/2019 7:56 AM TUBULAR SPLITTING MACHINE TENDER Oxygen Saturation 98% 06/02/2019 7:54 AM TUBULAR SPLITTING MACHINE TENDER Inhaled Oxygen Concentration - - Weight 78.7 [...] PANEL (CALCIUM TOTAL) Routine 05/11/2019 8:52 AM TUBULAR SPLITTING MACHINE TENDER Pre-op evaluation from Last 3 Months or Most Recently Relevant to Health Maintenance Results * (ABNORMAL) BASIC METABOLIC PANEL (CALCIUM TOTAL) (05/11/2019 8:52 AM TUBULAR SPLITTING MACHINE TENDER) BUN 14 7 - 26 mg/dL 05/11/2019 10:25 AM [facility] Creatinine 0.7 0.6 - 1.2 mg/dL 05/11/2019 10:25 AM [facility] Sodium 144 136 - 145 mmol/L 05/11/2019 10:25 AM [facility] Potassium 4.2 3.5 - 4.5 mmol/L 05/11/2019 10:25 AM [facility] Chloride 106 98 - 107 mmol/L 05/11/2019 10:25 AM [facility] CO2 26 22 - 29 mmol/L 05/11/2019 10:25 AM [facility] Glucose 111 70 - 115 mg/dL 05/11/2019 10:25 AM [facility] Calcium 10.7(H) 8.4 - 10.2 mg/dL 05/11/2019 10:25 AM [facility] Anion Gap 16 8 - 18 05/11/2019 10:25 AM [facility] BUN/Creatinine Ratio 20 7 - 23 05/11/2019 10:25 AM [facility] Osmolality Calculated 299 270 - 300 mOsm/kg 05/11/2019 10:25 AM [facility] eGFR >60 >60 mL/min/1.7 3 m2 05/11/2019 10:25 AM [facility] Blood BLOOD SPECIMEN / Unknown Lab Venipuncture / Unknown 05/11/2019 8:52 AM TUBULAR SPLITTING MACHINE TENDER 05/11/2019 9:49 AM TUBULAR SPLITTING MACHINE TENDER Marianne Lucas CALL CENTER SUPERVISOR-RADIO COMMUNICATION COORDINATOR LAB - CHEMISTRY O RDERABLES Final Result [facility] [address] [phone] from Last 3 Months or Most Recently Relevant to Health Maintenance Insurance Member Subscriber Plan / Payer (Ef fective 2018-Present) Name:Frieda Brooks Relation to Subscriber:Self Name:FRIEDA BROOKS Payer ID:[id number] (NAIC) Type:PPO Address: [place] [id number] Advance Directives * Full Code (Latest Code Status on File) Date Activated Date Inactivated Comments 06/01/2019 4:10 PM 06/02/2019 11:49 AM Care Teams Generalist Relationship Specialty Start Date End Date Babatunde Mccall MD [address] [place] [id number] PCP - General 03/22/19
--- OUTSIDE RECORDS SUMMARY | 2024-10-14 13:11 | XMS_ITS | Data Portability ---
Author Organization [facility] Address [address] [place] [address] Care Team Providers Care Associate Curator Name Role Phone BERNARDO ANDRADE Primary Care Provider [phone] Assessment Encounter Date Assessment Date Assessment LastModified [...] a year unless there are new symptoms. [email or web address] Not available 02/23/2024 17:37:28 Plan of Treatment [...] as clini [place] warra nted. Not Available [facility] (Lab) [address], [place], [address], 12/24/2020 14:45:41 01/24/20 22 01/23/2022 IMAGE GUIDE [...] preciado nted. Not Available [facility] [address], [place], [address], 01/30/2022 14:49:34 02/11/20 23 02/10/2023 IMAGE GUIDE [...] Thinp rep Imagi ng Syste m. CLINI DINOTE INFOR MATIO N: Menst rual Statu s: [...] as clini [place] preciado nted. Not Available [facility] (Lab) [address], [place], [address], 02/11/2023 20:47:40 02/23/20 24 02/23/2024 IMAGE GUIDE [...] as clini [place] warra nted. Not Available [facility] (Lab) [address], [place], [address], 03/01/2024 12:00:52 04/23/20 21 04/20/2021 MAMMO , scree ruddy, digit al, bilat eral No observ ation record ed. [address], [address], 05/06/2021 19:22:24 06/14/19 23 06/14/2022 MAMMO , scree ruddy, bilat eral No observ ation record ed. [address] [address], [place], [address], 06/16/2022 10:46:28 06/15/19 23 06/14/2022 MAMMO , scree ruddy, bilat eral No observ ation record ed. [address] [address], [place], [address], 06/16/2022 17:02:09 06/19/19 23 06/19/2022 MAMMO , diagn ostic , digit al, unila teral No observ ation record ed. [address], [address], 06/20/2022 18:38:36 12/18/19 23 12/17/2022 imagi ng/di agnos tic resul t No observ ation record ed. [facility] [address], [place], [address], 12/18/2022 17:12:38 12/18/19 23 12/17/2022 imagi ng/di agnos tic resul t No observ ation record ed. [facility] [address], [place], [address], 12/28/2022 16:09:39 Result Notes None recorded. Problems Name Problem SNOMED Code Status Onset Date Resolution Date Notes Provider Name and Address Organization Details Recorded Time Pregnanc y test negative 950083258 Completed 201512/21/2020 Encounte r for pregnanc y test, result negative ;Recorde d Elsewher e: No Locat ion: [facility] S ource: EHR Leaf Conditioner cece: N Wenditi ce ID: [id number] Thai lable Time: 08:30:00 AM [facility] 10:11:45 Evaluati on finding Completed 201612/21/2020 Hematuri a, unspecif ied;Branden rded Elsewher e: No Locat ion: [facility] S ource: EHR Leaf Conditioner cece: N Practi ce ID: [id number] Thai lable Time: 08:45:00 AM Frieda [facility] 10:11:[address] Concept Completed 201712/21/2020 Well woman check w/o abnormal finding; Recorded Elsewher e: No Locat ion: [facility] S ource: EHR Leaf Conditioner cece: N Practi ce ID: [id number] Thai lable Time: 08:30:00 AM Frieda [facility] 10:12:04 Speciali zed medical examinat ion Completed 201112/21/2020 Gynecolo gical Examinat ion;Branden rded Elsewher e: No Locat ion: [facility] S ource: EHR Leaf Conditioner cece: N Practi ce ID: [id number] Thai lable Time: 05:00:[address] [facility] 1 10:12:07 Atypical glandula r cells on cervical Papanico laou smear 177211764 Active 2010 Abnormal glandula r Papanico laou smear of cervix;R ecorded Elsewher e: No Locat ion: [facility] S ource: EHR Leaf Conditioner cece: N Milagros ce ID: 0001 Thai lable Time: 11:45:00 AM Not Available [facility] 0 17:26:58 Screenin g for malignan t neoplasm of rectum Completed 201612/21/2020 Encounte r for screenin g for malignan t neoplasm of rectum;R ecorded Elsewher e: No [facility]at [facility] Jerry Linares ce ID: 0001 Thai lable Time: 08:45:00 AM Frieda [facility] 1 10:12:00 Dobby Loom Chain Pegger al complica tion of intraute rine contrace ptive device Completed 201512/21/2020 Displace ment of intraute rine contrace ptive device, init;Rec orded Elsewher e: No [facility]at ion[facility] Jerry Linares ce ID: [id number] Thai lable Time: 08:45:[address] [facility] 1 10:11:41 Clinical finding Completed 201512/21/2020 Presence of (intraut erine) contrace ptive device;R ecorded Elsewher e: No [facility]at ion[facility] Jerry Linares ce ID: [id number] Thai lable Time: 08:30:00 AM Frieda [facility] 1 10:11:33 Insertio n of intraute rine contrace ptive device Completed 201512/21/2020 Encounte r for insertio n of intraute rine contrace ptive device;R ecorded Elsewher e: No Locat ion: [facility] S ource: EHR Leaf Conditioner cece: N Wenditi ce ID: [id number] Thai lable Time: 08:30:[address] [facility] 10:11:[address] Concept Completed 201512/21/2020 Encntr for general adult medical exam w/o abnormal findings ;Recorde d Elsewher e: No Locat ion: [facility] S ource: EHR Leaf Conditioner cece: N Practi ce ID: [id number] Thai lable Time: 08:30:[address] [facility] 10:12:03 Adult health examinat ion Completed 201412/21/2020 Routine general medical exam[facility]at [facility] at [facility] ;Practic e ID: [address] [facility] 10:11:30 Screenin g for malignan t neoplasm of cervix Completed 201412/21/2020 Pap Smear;Pr actice ID: [address] [facility] 10:11:58 Removal of intraute rine device Completed 201512/21/2020 Encounte r for removal of intraute rine contrace ptive device;P ractice ID: [address] [facility] 10:11:[address] Concept Completed 201612/21/2020 Encounte r for general adult medical exam w abnormal findings ;Practic e ID: [address] [facility] 10:11:48 Problem Notes None recorded. Procedures Surgical History Date Name Laterality Status Provider Name and Address Organization Details Recorded Time 024 Date of Last Mammogram completed Stefanie Bills [facility] 02/23/2024 17:39:35 023 Date of Last Pap Smear completed Frieda Lawrence [facility] 02/10/2023 16:25:15 022 IUD Removal completed Benton Ramirez MD [address], [place], [address], [facility] 08/22/2021 18:30:22 020 Excision and closure completed Benton Ramirez MD [address], [place], [address], [facility] 12/17/2019 22:25:31 019 parathyroidectomy completed Friedalalito Lawrence [facility] 12/21/2020 10:36:19 Imaging Results Imaging Date Name Status LastModified by [facility] Details LastModified Time 04/20/2021 MAMMO, screening, digital, bilateral completed [address] [place] [address], [address], 05/06/2021 19:22:24 06/14/2022 MAMMO, screening, bilateral completed [address] [facility], [place], [address], 06/16/2022 10:46:28 06/14/2022 MAMMO, screening, bilateral completed [address], [address], 06/16/2022 17:02:09 06/19/2022 MAMMO, diagnostic, digital, unilateral completed [address] [place] [address], [address], 06/20/2022 18:38:36 12/17/2022 imaging/diagnos tic result completed [address] [place] [address], [address], 12/18/2022 17:12:38 12/17/2022 imaging/diagnos tic result completed [facility] [address], [place], [address], 12/28/2022 16:09:39 Procedure Notes None recorded. Medical [...] Prescrib ed Elsewher e: Yes Loca tion: [facility] odify By: angle jimenez DateTime : 11/05/19 19 11:00:00 AM Not Available Not Available Not Available atorvasta tin 20 mg tablet take 1 tablet by oral route every day 06/27 completed Prescrib ed Elsewher e: Yes [facility]oca [facility] By: suresh jimenez DateTime : [...] Prescrib ed Elsewher e: Yes Loca tion: [facility] odify By: la hartman DateTime : 06/09/19 [...] Prescrib ed Elsewher e: Yes [facility] By: suresh Eric tony DateTime [...] Elsewher e: Yes Loca tion: [facility] odify By: la hartman DateTime : 01/08/20 12 05:00:00 PM Not Available Not Available Not Available losartan 100 mg tablet TAKE 1 TABLET BY MOUTH EVERY DAY 12/21 completed Not Available Not Available Not Available Calcio Tegan 500 mg tablet 04/28 completed Prescrib ed Elsewher e: Yes Loca tion: [facility] odify By: la hartman DateTime : 01/08/20 12 05:00:00 PM Not Available Not Available Not Available Synthroid active Not Available Not Karine ilable Not Available Simcor 1,000 mg-20 mg tablet,ex tended release take 1 tablet by oral route every day at bedtime after a low-fat snack 06/09 completed Prescrib ed Elsewher e: Yes Loca tion: [facility] odify By: la hartman DateTime : 01/08/20 12 05:00:00 PM Not Available Not Available Not Available nisoldipi ne ER 8.5 mg tablet,ex tended release 24 hr take 1 tablet by oral route every day 06/09 completed Prescrib ed Elsewher e: Yes Loca tion: [facility] odify By: la hartman DateTime : 01/08/20 12 05:00:00 PM Not Available Not Available Not Available amlodipin e besylate (bulk) 100 % powder 08/22 completed Prescrib ed Elsewher e: Yes [facility] By: la hartman DateTime : 06/09/19 15 08:30:00 AM Not Available Not Available Not Available Fish Oil 100 mg-160 mg-1,000 mg capsule 04/28 completed Prescrib ed Elsewher e: Yes Loca tion: [facility] odify By: la hartman DateTime : [...] Updated DateTime 12/21/2020 164.47 cm 27.7 kg/m2 22408.74 g 119 mm[Hg] 73 mm[Hg] [facility] 1 10:35:01 Date Recorded Body height Body mass index (BMI) Body weight Systolic blood pressure Diastolic blood pressure Provider Name and Address Organization Details Last Updated DateTime 08/22/2021 164.47 cm 27.7 kg/m2 85949.74 g 127 mm[Hg] 85 mm[Hg] [facility] 2 17:27:06 Date Recorded Body height Body mass index (BMI) Body weight Systolic blood pressure Diastolic blood pressure Provider Name and Address Organization Details Last Updated DateTime 01/23/2022 164.47 cm 25.8 kg/m2 17145.22 g 118 mm[Hg] 69 mm[Hg] [facility] 2 17:54:46 Date Recorded Body height Body mass index (BMI) Body weight Systolic blood pressure Diastolic blood pressure Provider Name and Address Organization Details Last Updated DateTime 02/10/2023 164.47 cm 26.2 kg/m2 99079.41 g 110 mm[Hg] 69 mm[Hg] Frieda Lawernce [facility] 3 16:24:24 Date Recorded Body height Body mass index (BMI) Body weight Systolic blood pressure Diastolic blood pressure Provider Name and Address Organization Details Last Updated DateTime 02/23/2024 164.47 cm 26.4 kg/m2 95786.44 g 121 mm[Hg] 79 mm[Hg] Stefanie Bills [facility] 4 17:38:11 Social History Question Answer Notes LastModified by Organizat ion Details LastModified Time Tobacco Smoking Status Never Smoker Ivette blackwood, [facility] 02/10/2023 15:57:20 Are You Blind Or Do You Have Difficulty Seeing? No Information n ot available 12/21/2020 What Is Your Level Of Caffeine Consumption? Occasional Information not available 12/21/2020 How Much Tobacco Do You Chew? None Information not available 12/21/2020 In The 14 Days Before Symptom Onset, Have You Had Close Contact With A Laboratory-confirm ed COVID-19 While That Case Was Ill? No Information n ot available 12/21/2020 In The 14 Days Before [...] Of Diet Are You Following? GLUTENFREE Information n ot available 12/21/2020 What Is The Highest Grade Or Level Of School You Have Completed Or The Highest Degree You Have Received? [id number] Information not available 12/21/2020 Are There Any [...] Functional Status Question Answer Note LastModified by Organizat ion Details LastModified Time Do you use any illicit or recreational drugs? No Information not available 12/21/2020 What is your level of alcohol consumption? Occasional Information not available 01/23/2022 Are you able to walk? 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 Moderate Information not available 01/23/2022 Mental Status Question Answer Note LastModified by Organization D etails LastModified Time Do you feel stressed (tense, restless, nervous, or anxious, or unable to sleep at night)? [id number] Information not available 12/21/2020 Family History Relationship Description Onset Age of this Age Resolved Age Notes LastModified by Organization Details LastModified Time Mother Hypertensive disorder Not available 2019 16:50:24 Mother Hyperlipidem ia [email or web address] Not available 2023 17:05:32 Father Hypertensive disorder Not available 2019 16:50:24 Father Diabetes mellitus Not available 2019 16:50:42 Sister Hypertensive disorder Not available 2019 16:50:24 Sister Diabetes mellitus Not available 2019 16:50:42 Sister Hyperlipidem ia [email or web address] Not available 2023 17:05:32 Maternal Grandmother Hypertensive [...] SNOMED-CT Code Diagnosis ICD10 Code Diagnosis Note 30985 Benton Ramirez MD [place] [address] [address] 12/03/2019 12:21:19 12/03/2019 13:17:36 Gynecologic examination 39045497 Z01.419 This patient is here for her [...] with nodular areas within the polypoid and. 10061 Benton Ramirez MD [place] [address] [address] 12/17/2019 16:19:23 12/18/2019 13:40:41 Skin lesion 44806218 L98.9 Excision of skin lesion was completed. She tolerated the procedure well. 27542 Benton Ramirez MD [place] [address] [address] 12/24/2019 14:07:52 12/24/2019 14:48:04 Skin lesion 70634481 L98.9 This patient is a 59-year-ol d female who presents for follow-up on resection of skin lesion. The skin lesion was on her medial right thigh. It is well-heale d. There is no evidence of infection. It was a nevuswitha lipoma type character. 83176 Benton Ramirez MD [place] [address] [address] 12/21/2020 10:05:20 12/21/2020 11:36:34 Gynecologic examination 98902804 Z01.419 This patient is here for her [...] l - [done ] Pap - today [id number] Benton Ramirez MD [place] [address],[place] [address] 08/22/2021 17:18:58 08/22/2021 18:32:49 Contraception care management 687650145 Z30.9 115542 Benton Ramirez MD [place] [address],[place] [address] 01/23/2022 17:34:02 01/23/2022 21:19:53 Gynecologic examination 26523791 Z01.419 Z11.51 This patient is here for [...] l - [done ] Pap - today [id number] Benton Ramirez MD [place] [address],[place] [address] 02/10/2023 15:57:06 02/10/2023 17:21:02 Gynecologic examination 77185665 Z01.419 Z11.51 This patient is here for [...] l - [done ] Pap - today [id number] Benton Ramirez MD [place] [address] [address] 02/23/2024 17:03:43 02/23/2024 17:59:44 Gynecologic examination 82460726 Z01.419 Z11.51 This patient is here for [...] Pineda Member ID Guarantor Name 12/21/2020 1 [facility] [id number] Frieda Baeza [id number] Frieda Baeza 08/22/2021 1 R [id number] Frieda Baeza [id number] Frieda Baeza 01/23/2022 1 R [id number] Frieda Baeza [id number] Frieda Baeza 02/10/2023 1 R [id number] Frieda Baeza [id number] Frieda Baeza 02/23/2024 1 [facility] [id number] Frieda Baeza [id number] Frieda Baeza Notes Date Note Type Note [...] 40 Benton Ramirez MD [address], [place], [address], [facility] 12/21/2020 11:23:51 08/22/2021 text/html Patient presents for IUD removal. Benton Ramirez MD [address], [place], [address], [facility] 08/22/2021 18:30:55 01/23/2022 [...] exercise Benton Ramirez MD [address], [place], [address], [facility] 01/23/2022 18:34:24 02/10/2023 [...] exercise Benton Ramirez MD [address], [place], [address], [facility] 02/10/2023 17:19:28 02/23/2024 text/html Annual GYNReport ed bypatient.History: no gynecologic complaints Urinary symptoms:No hematuria; No incontinence Vulva:No genital lesion Vagina:Normal vaginal discharge Breast:No breast pain; No breast lump Sexual complaints:No sexual complaints Menopausal Symptoms:No menopausal symptoms; Normal vaginal lubrication Psychological symptoms:No depression; No anxiety Preventive measures:Encourage self breast examination; Encourage regular exercise Benton Ramirez MD [address], [place], [address], [place] [facility] 02/23/2024 17:56:30 OBGyn Episode Ob Episode Information Episode Created Date Number of Fetuses Patient Bloodtype Patient rh Status Prepregnancy Weight lbs Domestic Partner Domestic Partner Phone Father Name Configurator Status 12/03/19 20 2 CLOSED Fetus Data First Name Last Name Admitted to NICU Weight (g) Sex Living Outcome Pediatric Complications Fetus ID Race Codes Race Delivery Type 58 [id number] M [id number] Vaginal Delivery 2096.86 3 51770 Vaginal Delivery Ishan Calculation Initial Ishan Date [...] Domestic Partner Domestic Partner Phone Father Name Configurator Status 12/03/19 20 1 DELETED Ishan Calculation [...] Domestic Partner Domestic Partner Phone Father Name Configurator Status 12/03/19 20 1 CLOSED Fetus Data [...] Domestic Partner Domestic Partner Phone Father Name Configurator Status 12/03/19 20 1 CLOSED Fetus Data [...]
--- OUTSIDE RECORDS SUMMARY | 2024-10-14 13:11 | XMS_ITS | Data Portability ---
Author Organization [facility] [email or web address], Main Office Address [address] [place] [address] Assessment No assessment recorded. Plan of Treatment Reminders Order Date Submit Date Provider Last Modified By Organization Details Last Modified Time Details Appointments None recorded. Lab HbA1c (hemoglobi n A1c), blood [address] (Lab), [address] [place] [address], [phone], 17:09:32 CMP, serum or plasma [address] (Lab), [address] [place] [address], [phone], 17:09:32 lipid panel, serum 2022 023 [facility] (Lab), [address] [place] [address], [phone], 16:15:58 TSH + free T4, serum [address] (Lab), [address] [place] [address], [id number], 17:09:32 Referral None recorded. Procedures None recorded. Surgeries None recorded. Imaging None recorded. Medication Orders Synthroid 88 mcg tablet 2022 023 [facility], [address], [place], [address], 17:08:06 Patient TargetsNo targets recorded. Patient InstructionsNo instructions recorded. Reason for Referral None Reported. Results Created Date Observation Date Name Description Value Unit Range Abnormal Flag Note LastModifiedBy Organization Detail LastModifiedTime Result Notes None recorded. Problems Name Problem SNOMED Code Status Onset Date Resolution Date Notes Provider Name and Address Organization Details Recorded Time Hypertensive disorder 23531149 Active 2018 Not Available [facility] 3 06:03:05 Impaired fasting glycemia 054964839 Active 2021 Not Available [facility] 3 06:03:05 Hypothyroidis m 54246952 Active 2021 Not Available [facility] 3 06:03:05 Hyperlipidemi a 33761900 Active 2018 Not Available [facility] 3 06:03:05 Essential hypertension 68713246 Active 2021 Not Available [facility] 3 06:03:05 Problem Notes None recorded. Procedures Surgical History Date Name Laterality Status Provider Name and Address Organization Details Recorded Time Kidney Stones completed Not Available [facility] 07/24/2022 05:55:56 procedure on parathyroid gland completed Not Available [facility] 07/24/2022 05:55:56 Imaging Results None recorded. Procedure [...] % 99 % 72 /min 97.8 [degF] 55651.4 1 g 105 mm[Hg] 70 mm[Hg] Not Available [facility] 3 05:57:00 Date Recorded Body height Body mass index (BMI) Body weight Body temperature Heart rate Systolic blood pressure Diastolic blood pressure Provider Name and Address Organization Details Last Updated DateTime 3 165.1 cm 26.5 kg/m2 83939.1 9 g 97.5 [degF] 79 /min 118 mm[Hg] 71 mm[Hg] AMY Rendon [place] [facility] [place] [employer] 3 16:51:24 Social History Question Answer Notes LastModified by Organizat ion Details LastModified Time Tobacco Smoking Status Never Smoker Not Available [facility] 07/24/2022 05:53:29 What Is Your Level Of Caffeine Consumption? Occasional [id number] Information not available 07/24/2022 In The 14 Days Before Symptom Onset, Have You Had Close Contact With A Laboratory-confirm ed COVID-19 While That Case Was Ill? No [id number] Information not available 07/24/2022 In The 14 Days Before Symptom Onset, Have You Had Close Contact With A Person Who Is Under Investigation For COVID-19 While That Person Was Ill? No [id number] 2093 Information not available 07/24/2022 What Type Of Diet Are You Following? REGULAR [id number].[id number] 5548 Information not available 07/24/2022 What Is The Highest Grade Or Level Of School You Have Completed Or The Highest Degree You Have Received? DV67759-3 MIGRATION.[id number] 7682 Information not available 07/24/2022 What Is Your Relationship Status? [id number] Information not available 07/24/2022 Do You Use Your Seat Belt Or Car Seat Routinely? Yes [id number] Information not available 07/24/2022 Has Tobacco Cessation Counseling Been Provided? No MIGRATION.[id number] 5461 Information not available 07/24/2022 Have You Recently Traveled Abroad? No MIGRATION.458638 3769 Information not available 07/24/2022 Do You Have Any Dietary Restrictions? No MIGRATION.181393 6786 Information not available 07/24/2022 Sex: Female Functional Status Question Answer Note LastModified by [employer] ion Details LastModified Time Do you use any illicit or recreational drugs? No MIGRATION.563811 2965 Information not available 07/24/2022 Do you or have you ever used any other forms of tobacco or nicotine? No MIGRATION.193063 7374 Information not available 07/24/2022 What is your level of alcohol consumption? Occasional MIGRATION.111218 8737 Information not available 07/24/2022 What is your occupation? [employer] MIGRATION.121848 4322 Information not available 07/24/2022 Mental Status None recorded. Family History Relationship Description Onset Age of this Age Resolved Age Notes LastModified by Organization Details LastModified Time Sister Diabetes mellitus [id number] Not available 07/24/2022 05:55:58 Sister Hypertensive disorder [id number].735 [id number] Not available 07/24/2022 05:55:58 Sister Hypercholest erolemia MIGRATION.495 [id number] Not available 07/24/2022 05:55:58 Father Diabetes mellitus MIGRATION.887 [id number] Not available 07/24/2022 05:55:58 Mother Hypertensive disorder MIGRATION.950 [id number] Not available 07/24/2022 05:55:58 Mother Hypercholest erolemia MIGRATION.700 [id number] Not available 07/24/2022 05:55:58 Medical History Condition Response PARATHYROID DISEASE Y HIGH CHOLESTEROL / HYPERLIPIDEMIA Y HYPERTENSION Y Gynecological HistoryNo gynecological history recorded. Obstetrics History GPAL:G 0 P 0 0 0 0 Past Encounters Encounter ID Performer Location Encounter Start Date Encounter Closed Date Diagnosis/Indication Diagnosis SNOMED-CT Code Diagnosis ICD10 Code Diagnosis Note [id number] Kalani Guzman MD [facility] [address] [place] [address] 01/19/2021 00:00:00 01/19/2021 17:16:07 [id number] Kalani Guzman MD [facility] [address] [place] [address] 06/26/2021 00:00:00 06/26/2021 14:55:19 [id number] [facility] [address] [place] [address] 01/08/2022 00:00:00 01/08/2022 17:08:52 [id number] Kalani Guzman MD [facility] [address] [place] [address] 08/15/2022 16:36:34 08/15/2022 17:15:33 Hypothyroidism 89611710 E03.9 TSH and FT4 in ideal range- [...] reduce inflammati on. Impaired f asting glycemia 663655467 R73.01 Continue ozempic 0.5 mg once weekly as patient tolerating well. Discussed carb counting and how to read food labels. Recommende d patient to utilize the diabetesfo [employer] from the ADA website to help with food preparatio n as this presents ideal carb content per meal so this will make carb counting much easier for patient. Recommende d she incorporat e natural insulin child care cook s such as pears, apples, cinnamon, anton [...] informatio n in the electronic health record, independen tly interpreti ng results and communicat ing results to the patient. RTC in 6 months. Patient was provided a handwritte n lab order which contains our fax number. If she chooses to go outside of the [facility] system to obtain labwork she was [...] Pineda Member ID Guarantor Name 08/15/2022 1 [facility] [id number] Frieda Baeza [id number] Frieda Baeza Notes Date Note Type Note [...] and sleep. She did receive something from [facility] to update her script. labs from 06/12/22:microalbu min 13 ug/mgglucose 85 mg/dLCr normalLFT /88/66/8 9TSH of 0.667 uIU/mlFT4 of 1.32 ng/dLa1c 4.9% Kalani Guzman MD [address] [facility], [facility] [address], [place], [address], [facility] 08/15/2022 17:58:49 OBGyn Episode No OBEpisode recorded.
== END 2024-10-14 13:10 | disposition home or self-care (01) ==
LOC: ANHIMG 13:09
PROVIDERS: PCP Family Medicine; Visit Provider Internal Medicine
DX: R79.89 Other specified abnormal findings of blood chemistry (principal); M81.0 Age-related osteoporosis without current pathological fracture; M85.89 Other specified disorders of bone density and structure, multiple sites; E03.9 Hypothyroidism, unspecified
CPT/HCPCS: 77081

== ENCOUNTER 2024-11-02 13:32 | Outpatient (CLI) | payer OTHER, SELFPAY ==
[2024-11-02 14:27] LABS: Alanine Aminotransferase 25 U/L (6-35); Albumin Level 4.5 g/dL (3.5-5.1); Alkaline Phosphatase 86 U/L (38-126); Anion Gap 9 mmol/L (4-12); Aspartate Amino Transferase 30 U/L (14-36); Bilirubin,Total 0.5 mg/dL (0.2-1.3); Blood Urea Nitrogen 25 mg/dL (7-17); Calcium 9.7 mg/dL (8.4-10.2); Carbon Dioxide 26 mmol/L (22-30); Chloride 104 mmol/L (98-107); Estimated Glomerular Filt Rate > 60; Glucose 117 mg/dL (65-110); Potassium 3.8 mmol/L (3.4-5.0); Sodium 139 mmol/L (137-145); Total Protein 7.3 g/dL (6.3-8.2)
--- OUTSIDE RECORDS SUMMARY | 2024-11-02 14:41 | XMS_ITS | Clinical Summary ---
Author Organization [facility] [employer] Address [address] [place] [address] Care Team Providers Care Heavy Equipment Operating Engineer Name Role Phone Babatunde Mccall MD Primary Care Provider [phone] Source Comments [facility] [employer],non-owned Affiliates and Associated Physician Practices is amultiple site organization consisting of ambulatory clinics and hospital sitesin [place], [place], [place] and [place]. This disclosure is being madepursuant to the Care Everywhere program and may not contain all information available regarding this patient. 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 [employer] Gender Identity Not on file Sexual Orientation Not on file Last Filed Vital Signs Vital Sign Reading Time Taken Comments Blood Pressure 128/72 02/11/2020 12:10 PM CDT Pulse 90 02/11/2020 12:10 PM CDT Temperature 36.9 C (98.5 F) 06/02/2019 7:54 AM [employer] Respiratory Rate 16 06/02/2019 7:56 AM [employer] Oxygen Saturation 98% 06/02/2019 7:54 AM [employer] Inhaled Oxygen Concentration - - Weight 78.7 kg (173 lb 9.6 oz) 02/11/2020 12:10 PM CDT Height 165.1 cm (5' 5) 02/11/2020 12:10 PM CDT Body Mass Index [...] PANEL (CALCIUM TOTAL) Routine 05/11/2019 8:52 AM [employer] Pre-op evaluation from Last 3 Months or Most Recently Relevant to Health Maintenance Results * (ABNORMAL) BASIC METABOLIC PANEL (CALCIUM TOTAL) (05/11/2019 8:52 AM [employer]OUTE SALES [employer]EE) BUN 14 7 - 26 mg/dL 05/11/2019 10:25 AM [facility] Creatinine 0.7 0.6 - 1.2 mg/dL 05/11/2019 10:25 AM [facility] Sodium 144 136 - 145 mmol/L 05/11/2019 10:25 AM [facility] Potassium 4.2 3.5 - 4.5 mmol/L 05/11/2019 10:25 AM [facility] Chloride 106 98 - 107 mmol/L 05/11/2019 10:25 AM [facility] CO2 26 22 - 29 mmol/L 05/11/2019 10:25 AM [facility] Glucose 111 70 - 115 mg/dL 05/11/2019 10:25 AM [facility] Calcium 10.7(H) 8.4 - 10.2 mg/dL 05/11/2019 10:25 AM [facility] Anion Gap 16 8 - 18 05/11/2019 10:25 AM [facility] BUN/Creatinine Ratio 20 7 - 23 05/11/2019 10:25 AM [facility] Osmolality Calculated 299 270 - 300 mOsm/kg 05/11/2019 10:25 AM [facility] eGFR >60 >60 mL/min/1.7 3 m2 05/11/2019 10:25 AM [facility] Blood BLOOD SPECIMEN / Unknown Lab Venipuncture / Unknown 05/11/2019 8:52 AM [employer] 05/11/2019 9:49 AM [employer] Marianne Lucas MARINE INSULATOR-TRANSCRIBER LAB - CHEMISTRY O RDERABLES Final Result [facility] [address] [phone] from Last 3 Months or Most Recently Relevant to Health Maintenance Insurance Member Subscriber Plan / Payer (Ef fective 2018-Present) Name:Frieda Brooks Relation to Subscriber:Self Name:FRIEDA BROOKS Payer ID:[id number] (NAIC) Type:PPO Address: [place] [phone] Advance Directives * Full Code (Latest Code Status on File) Date Activated Date Inactivated Comments 06/01/2019 4:10 PM 06/02/2019 11:49 AM Care Teams Heavy Equipment Operating Engineer Relationship Specialty Start Date End Date Babatunde Mccall MD [address] [place] [id number] PCP - General 03/22/19
--- OUTSIDE RECORDS SUMMARY | 2024-11-02 14:41 | XMS_ITS | Data Portability ---
Author Organization [facility] Address [address] [place] [address] Care Team Providers Care Firearms Inspector Name Role Phone BERNARDO ANDRADE Primary Care [...] a year unless there are new symptoms. [email or web address] Not available 02/23/2024 17:37:28 Plan of Treatment [...] as clini [place] warra nted. Not Available [facility] (Lab) [address], [place], [address], 12/24/2020 14:45:41 01/24/20 22 01/23/2022 IMAGE GUIDE [...] preciado nted. Not Available [facility] [id number], [place], [address], 01/30/2022 14:49:34 02/11/20 23 02/10/2023 IMAGE GUIDE [...] as clini [place] preciado nted. Not Available [facility] (Lab) [address], [place], [address], 02/11/2023 20:47:40 02/23/20 24 02/23/2024 IMAGE GUIDE [...] as clini [place] warra nted. Not Available [facility] (Lab) [address], [place], [address], 03/01/2024 12:00:52 04/23/20 21 04/20/2021 MAMMO , scree ruddy, digit al, bilat eral No observ ation record ed. [address], [address], 05/06/2021 19:22:24 06/14/19 23 06/14/2022 MAMMO , scree ruddy, bilat eral No observ ation record ed. [address] [address], [place], [address], 06/16/2022 10:46:28 06/15/19 23 06/14/2022 MAMMO , scree ruddy, bilat eral No observ ation record ed. [address] [address], [place], [address], 06/16/2022 17:02:09 06/19/19 23 06/19/2022 MAMMO , diagn ostic , digit al, unila teral No observ ation record ed. [address], [address], 06/20/2022 18:38:36 12/18/19 23 12/17/2022 imagi ng/di agnos tic resul t No observ ation record ed. [facility] [address], [place], [address], 12/18/2022 17:12:38 12/18/19 23 12/17/2022 imagi ng/di agnos tic resul t No observ ation record ed. [facility] [address], [place], [address], 12/28/2022 16:09:39 Result Notes None recorded. Problems Name Problem SNOMED Code Status Onset Date Resolution Date Notes Provider Name and Address Organization Details Recorded Time Pregnanc y test negative [id number] Completed 201512/21/2020 Encounte r for pregnanc y test, result negative ;Recorde d Elsewher e: No Locat ion: [facility] S ource: [employer] cece: N Wenidti ce ID: [id number] Thai lable Time: 08:30:00 AM Frieda [facility] 10:11:45 Evaluati on finding Completed 201612/21/2020 Hematuri a, unspecif ied;Branden rded Elsewher e: No Locat ion: [facility] S ource: [employer] cece: N Practi ce ID: [id number] Thai lable Time: 08:45:00 AM Frieda [facility] 10:11:[address] Concept Completed 201712/21/2020 Well woman check w/o abnormal finding; Recorded Elsewher e: No Locat ion: [facility] S ource: [employer] cece: N Practi ce ID: [id number] Thai lable Time: 08:30:00 AM Frieda [facility] 10:12:04 Speciali zed medical examinat ion Completed 201112/21/2020 Gynecolo gical Examinat ion;Branden rded Elsewher e: No Locat ion: [facility] S ource: [employer] cece: N Practi ce ID: [id number] Thai lable Time: 05:00:00 PM Friedalalito Lawrence [facility] 1 10:12:07 Atypical glandula r cells on cervical Papanico laou smear [id number] Active 2010 Abnormal glandula r Papanico laou smear of cervix;R ecorded Elsewher e: No Locat ion: [facility] S ource: [employer] cece: N Milagros ce ID: [id number] Thai lable Time: 11:45:00 AM Not Available [facility] 0 17:26:58 Screenin g for malignan t neoplasm of rectum Completed 201612/21/2020 Encounte r for screenin g for malignan t neoplasm of rectum;R ecorded Elsewher e: No Locat ion: [facility] Jerry Linares ce ID: [id number] Thai lable Time: 08:45:00 AM Frieda [facility] 1 10:12:00 Supermarket Manager al complica tion of intraute rine contrace ptive device Completed 201512/21/2020 Displace ment of intraute rine contrace ptive device, init;Rec orded Elsewher e: No Locat ion: [facility]: Jerry Linares ce ID: [id number] Thai lable Time: 08:45:00 AM Friedalalito Lawrence [facility] 1 10:11:41 Clinical finding Completed 201512/21/2020 Presence of (intraut erine) contrace ptive device;R ecorded Elsewher e: No Locat ion: [facility]: Jerry Linares ce ID: [id number] Thai lable Time: 08:30:00 AM Frieda [facility] 1 10:11:33 Insertio n of intraute rine contrace ptive device Completed 201512/21/2020 Encounte r for insertio n of intraute rine contrace ptive device;R ecorded Elsewher e: No Locat ion: [facility] S ource: [employer] cece: N Wenditi ce ID: [id number] Thai lable Time: 08:30:00 AM Frieda Lawrence [facility] 10:11:[address] Concept Completed 201512/21/2020 Encntr for general adult medical exam w/o abnormal findings ;Recorde d Elsewher e: No Locat ion: [facility] S ource: [employer] cece: N Practi ce ID: [id number] Thai lable Time: 08:30:00 AM Frieda Lawrence [facility] 10:12:03 Adult health examinat ion Completed 201412/21/2020 Routine general medical examinat ion at a [facility] facility ;Practic e ID: [address] [facility] 10:11:30 Screenin g for malignan t neoplasm of cervix Completed 201412/21/2020 Pap Smear;Pr actice ID: [address] [facility] 10:11:58 Removal of intraute rine device Completed 201512/21/2020 Encounte r for removal of intraute rine contrace ptive device;P ractice ID: [address] [facility] 10:11:[address] Concept Completed 201612/21/2020 Encounte r for general adult medical exam w abnormal findings ;Practic e ID: [address] [facility] 10:11:48 Problem Notes None recorded. Procedures Surgical History Date Name Laterality Status Provider Name and Address Organization Details Recorded Time 024 Date of Last Mammogram completed Stefanie Bills [facility] 02/23/2024 17:39:35 023 Date of Last Pap Smear completed Frieda [facility] 02/10/2023 16:25:15 022 IUD Removal completed Benton Ramirez MD [address], [place], [address], [facility] 08/22/2021 18:30:22 020 Excision and closure completed Benton Ramirez MD [address], [place], [address], [facility] 12/17/2019 22:25:31 019 [address] [facility] 12/21/2020 10:36:19 Imaging Results None recorded. Procedure Notes None [...] 52 mg intrauter ine device 08/22 completed [facility] ed Elsewher e: Yes Loca tion: [facility] odify By: angle Tipton ncounter DateTime : 11/05/19 19 11:00:00 AM Not Available Not Available Not Available atorvasta tin 20 mg tablet take 1 tablet by oral route every day 06/27 completed Prescrib ed Elsewher e: Yes Loca tion: [facility] M odify By: suresh Tipton ncounter DateTime : 06/09/19 15 08:30:00 AM Not [...] Elsewher e: Yes Loca tion: Georgie tipton [facility] odify By: la hartman DateTime : 06/09/19 [...] Prescrib ed Elsewher e: Yes Loca tion: Kristy danuta [facility] odify By: suresh aminunttatianna DateTime : 06/27/19 16 08:30:00 AM Not [...] Prescrib ed Elsewher e: Yes Loca tion: [facility] odify By: la hartman DateTime : 01/08/20 12 05:00:00 PM Not Available Not Available Not Available losartan 100 mg tablet TAKE 1 TABLET BY MOUTH EVERY DAY 12/21 completed Not Available Not Available Not Available Calcio Tegan 500 mg tablet 04/28 completed Prescrib ed Elsewher e: Yes Loca tion: [facility] odify By: la hartman DateTime : 01/08/20 12 05:00:00 PM Not Available Not Available Not Available Synthroid active Not Available Not Karine ilable Not Available Simcor 1,000 mg-20 mg tablet,ex tended release take 1 tablet by oral route every day at bedtime after a low-fat snack 06/09 completed Prescrib ed Elsewher e: Yes Loca tion: [facility] odify By: la hartman DateTime : 01/08/20 12 05:00:00 PM Not Available Not Available Not Available nisoldipi ne ER 8.5 mg tablet,ex tended release 24 hr take 1 tablet by oral route every day 06/09 completed Prescrib ed Elsewher e: Yes Loca tion: [facility] odify By: la hartman DateTime : 01/08/20 12 05:00:00 PM Not Available Not Available Not Available amlodipin e besylate (bulk) 100 % powder 08/22 completed Prescrib ed Elsewher e: Yes Loca tion: [facility] odify By: la hartman DateTime : 06/09/19 15 08:30:00 AM Not Available Not Available Not Available Fish Oil 100 mg-160 mg-1,000 mg capsule 04/28 completed Prescrib ed Elsewher e: Yes Loca tion: [facility] odify By: la hartman DateTime : 01/08/20 [...] Updated DateTime 08/22/2021 164.47 cm 27.7 kg/m2 96335.74 g 127 mm[Hg] 85 mm[Hg] Frieda Lawrence [facility] 03/30/202 2 17:27:06 Date Recorded Body height Body mass index (BMI) Body weight Systolic blood pressure Diastolic blood pressure Provider Name and Address Organization Details Last Updated DateTime 12/21/2020 164.47 cm 27.7 kg/m2 36102.74 g 119 mm[Hg] 73 mm[Hg] [facility] 1 10:35:01 Date Recorded Body height Body mass index (BMI) Body weight Systolic blood pressure Diastolic blood pressure Provider Name and Address Organization Details Last Updated DateTime 01/23/2022 164.47 cm 25.8 kg/m2 01945.22 g 118 mm[Hg] 69 mm[Hg] [facility] 2 17:54:46 Date Recorded Body height Body mass index (BMI) Body weight Systolic blood pressure Diastolic blood pressure Provider Name and Address Organization Details Last Updated DateTime 02/10/2023 164.47 cm 26.2 kg/m2 55202.41 g 110 mm[Hg] 69 mm[Hg] [facility] 3 16:24:24 Date Recorded Body height Body mass index (BMI) Body weight Systolic blood pressure Diastolic blood pressure Provider Name and Address Organization Details Last Updated DateTime 02/23/2024 164.47 cm 26.4 kg/m2 56293.44 g 121 mm[Hg] 79 mm[Hg] Stefanie Bills [facility] 4 17:38:11 Social History Question Answer Notes LastModified by Organizat ion Details LastModified Time Tobacco Smoking Status Never Smoker [facility] 02/10/2023 15:57:20 Are You Blind [...] Or The Highest Degree You Have Received? 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 Moderate Information not available 01/23/2022 Mental Status Question Answer Note LastModified by Organization D etails LastModified Time Do you feel stressed (tense, restless, nervous, or anxious, or unable to sleep at night)? [id number] Information not available 12/21/2020 Family History Relationship Description Onset Age of this Age Resolved Age Notes LastModified by Organization Details LastModified Time Mother Hypertensive disorder Not available 2019 16:50:24 Mother Hyperlipidem ia [email or web address] Not available 2023 17:05:32 Father Hypertensive disorder Not available 2019 16:50:24 Father Diabetes mellitus Not available 2019 16:50:42 Sister Hypertensive disorder Not available 2019 16:50:24 Sister Diabetes mellitus Not available 2019 16:50:42 Sister Hyperlipidem ia Not available 2023 17:05:32 Maternal Grandmother Hypertensive [...] SNOMED-CT Code Diagnosis ICD10 Code Diagnosis Note [id number] Benton Ramirez MD [facility] [address] [address] 12/03/2019 12:21:19 12/03/2019 13:17:36 Gynecologic examination 18723609 Z01.419 This patient is here for her [...] with nodular areas within the polypoid and. [id number] Benton Ramirez MD [facility] [address],[place] [address] 12/17/2019 16:19:23 12/18/2019 13:40:41 Skin lesion 19294588 L98.9 Excision of skin lesion was completed. She tolerated the procedure well. [id number] MD Smiley Quach [address],[place] [address] 12/24/2019 14:07:52 12/24/2019 14:48:04 Skin lesion 19941636 L98.9 This patient is a 59-year-ol d female who presents for follow-up on resection of skin lesion. The skin lesion was on her medial right thigh. It is well-heale d. There is no evidence of infection. It was a nevuswitha lipoma type character. [id number] Benton Ramirez MD [facility] [address],[place] [address] 12/21/2020 10:05:20 12/21/2020 11:36:34 Gynecologic examination 21245040 Z01.419 This patient is here for her [...] l - [done ] Pap - today [id number] Benton Ramirez MD [facility] [address],[place] [address] 08/22/2021 17:18:58 08/22/2021 18:32:49 Contraception care management 484441131 Z30.9 [id number] Benton Ramirez MD [facility] [address],[place] [address] 01/23/2022 17:34:02 01/23/2022 21:19:53 Gynecologic examination 29093665 Z01.419 Z11.51 This patient is here for [...] l - [done ] Pap - today [id number] Benton Ramirez MD [facility] [address],[place] [address] 02/10/2023 15:57:06 02/10/2023 17:21:02 Gynecologic examination 30581287 Z01.419 Z11.51 This patient is here for [...] l - [done ] Pap - today [id number] Benton Ramirez MD [facility] [address],[place] [address] 02/23/2024 17:03:43 02/23/2024 17:59:44 Gynecologic examination 76556799 Z01.419 Z11.51 This patient is here for [...] Pineda Member ID Guarantor Name 12/21/2020 1 [facility] [id number] Frieda Baeza [id number] Frieda Baeza 08/22/2021 1 UMR [id number] Frieda Baeza [id number] Frieda Baeza 01/23/2022 1 R [id number] Frieda Baeza [id number] Frieda Baeza 02/10/2023 1 R [id number] Frieda Baeza [id number] Frieda Baeza 02/23/2024 1 R [id number] Frieda Baeza [id number] Frieda Baeza Notes Date Note Type Note [...] 40 Benton Ramirez MD [address], [place], [address], [facility] 12/21/2020 11:23:51 08/22/2021 text/html Patient presents for IUD removal. Benton Ramirez MD [address], [place], [address], [facility] 08/22/2021 18:30:55 01/23/2022 text/html Annual GYNReport ed bypatient.History: no gynecologic complaints Urinary symptoms:No hematuria; No incontinence Vulva:No genital lesion Vagina:Normal vaginal discharge Breast:No breast pain; No breast lump; No nipple discharge Sexual complaints:No sexual complaints; No pain during intercourse Menopausal Symptoms:No menopausal symptoms Psychological symptoms:No depression; No anxiety Preventive measures:Encourage self breast examination; Encourage regular exercise Benton Ramirez MD [address], [place], [address], [facility] 01/23/2022 18:34:24 02/10/2023 text/html Annual GYNReport ed bypatient.History: no gynecologic complaints Menstrual cycle:Normal menses Urinary symptoms:No hematuria; No incontinence Vulva:No genital lesion Vagina:Normal vaginal discharge Breast:No breast pain; No breast lump Sexual complaints:No sexual complaints; No pain during intercourse Menopausal Symptoms:No menopausal symptoms Psychological symptoms:No depression; No anxiety Preventive measures:Encourage self breast examination; Encourage regular exercise Benton Ramirez MD [address], [place], [address], [facility] 02/10/2023 17:19:28 02/23/2024 text/html Annual GYNReport ed bypatient.History: no gynecologic complaints Urinary symptoms:No hematuria; No incontinence Vulva:No genital lesion Vagina:Normal vaginal discharge Breast:No breast pain; No breast lump Sexual complaints:No sexual complaints Menopausal Symptoms:No menopausal symptoms; Normal vaginal lubrication Psychological symptoms:No depression; No anxiety Preventive measures:Encourage self breast examination; Encourage regular exercise Benton Ramirez MD [address], [place], [address], [facility] 02/23/2024 17:56:30 OBGyn Episode Ob Episode Information Episode Created Date Number of Fetuses Patient Bloodtype Patient rh Status Prepregnancy Weight lbs Domestic Partner Domestic Partner Phone Father Name Engineering Supervisor Status 12/03/19 20 2 CLOSED Fetus Data First Name Last Name Admitted to NICU Weight (g) Sex Living Outcome Pediatric Complications Fetus ID Race Codes Race Delivery Type 58 [phone] M [id number] Vaginal Delivery [phone] [phone] Vaginal Delivery Ishan Calculation Initial Ishan Date [...] Complications Tubal Sterilization Discharge Date Comments 3 [place] and Axel Discharge Information Feeding Method Contraceptive Method Maternal HG B and HCT Levels Ob Episode Information Episode Created Date Number of Fetuses Patient Bloodtype Patient rh Status Prepregnancy Weight lbs Domestic Partner Domestic Partner Phone Father Name Engineering Supervisor Status 12/03/19 1 DELETED Ishan Calculation Initial Ishan Date Initial Exam Date Initial Exam Provider Initial Ultrasound Date Last Menstrual Period Date Ultra Sound Weeks Gestation 0 Eighteen To Twenty Week Ihsan Update Ultra Sound Date Fundal Height At [...] Domestic Partner Domestic Partner Phone Father Name Engineering Supervisor Status 12/03/19 1 CLOSED Fetus Data First Name Last [...] Domestic Partner Domestic Partner Phone Father Name Engineering Supervisor Status 12/03/19 1 CLOSED Fetus Data First Name Last [...] Complications Tubal Sterilization Discharge Date Comments 8 [place] Discharge Information Feeding Method Contraceptive Method Maternal HG B and HCT Levels
--- OUTSIDE RECORDS SUMMARY | 2024-11-02 14:42 | XMS_ITS | Data Portability ---
Author Organization [facility] [employer] [facility], Main Office Address [address] [place] [address] Assessment No assessment recorded. Plan of Treatment Reminders Order Date Submit Date Provider Last Modified By Organization Details Last Modified Time Details Appointments None recorded. Lab HbA1c (hemoglobi n A1c), blood [address] (Lab), [address] [place] [address], [address], 17:09:32 CMP, serum or plasma [address] (Lab), [address] [place] [address], [address], 17:09:32 lipid panel, serum 2022 023 [facility] (Lab), [address] [place] [address], [address], 16:15:58 TSH + free T4, serum [address] (Lab), [address] [place] [address], [address], 17:09:32 Referral None recorded. Procedures None recorded. Surgeries None recorded. Imaging None recorded. Medication Orders Synthroid 88 mcg tablet [address] [facility], [address], [place], [address], 17:08:06 Patient TargetsNo targets recorded. Patient InstructionsNo instructions recorded. Reason for Referral None Reported. Results Created Date Observation Date Name Description Value Unit Range Abnormal Flag Note LastModifiedBy Organization Detail LastModifiedTime Result Notes None recorded. Problems Name Problem SNOMED Code Status Onset Date Resolution Date Notes Provider Name and Address Organization Details Recorded Time Hypertensive disorder 38318392 Active 2018 Not Available [facility] 3 06:03:05 Impaired fasting glycemia 165941946 Active 2021 Not Available [facility] 3 06:03:05 Hypothyroidis m 35432215 Active 2021 Not Available [facility] 3 06:03:05 Hyperlipidemi a 34200087 Active 2018 Not Available [facility] 3 06:03:05 Essential hypertension 64336792 Active 2021 Not Available [facility] 3 06:03:05 Problem Notes None recorded. Procedures Surgical History Date Name Laterality Status Provider Name and Address Organization Details Recorded Time Kidney Stones completed Not Available [facility] 07/24/2022 05:55:56 procedure on parathyroid gland completed Not Available [facility] 07/24/2022 05:55:56 Imaging Results None recorded. Procedure [...] Not Avai lable Vitals Date Recorded Body height Body mass index (BMI) Body weight Body temperature Heart rate Systolic blood pressure Diastolic blood pressure Provider Name and Address Organization Details Last Updated DateTime 3 165.1 cm 26.5 kg/m2 96274.1 9 g 97.5 [degF] 79 /min 118 mm[Hg] 71 mm[Hg] AMY Rendon [place] - [place] [employer] 3 16:51:24 Date Recorded Body mass index (BMI) Body height Oxygen saturation Oxygen saturation in Arterial blood by Pulse oximetry Heart rate Body temperature Body weight Systolic blood pressure Diastolic blood pressure Provider Name and Address Organization Details Last Updated DateTime 2 26 kg/m2 165.1 cm 99 % 99 % 72 /min 97.8 [degF] 19351.4 1 g 105 mm[Hg] 70 mm[Hg] Not Available [facility] 3 05:57:00 Social History Question Answer Notes LastModified by Organizat ion Details LastModified Time Tobacco Smoking Status Never Smoker Not Available [facility] 07/24/2022 05:53:29 What Is Your Level Of Caffeine Consumption? Occasional MIGRATION.[id number] Information not available 07/24/2022 In The 14 Days Before Symptom Onset, Have You Had Close Contact With A Laboratory-confirm ed COVID-19 While That Case Was Ill? No MIGRATION.[id number] 7026 Information not available 07/24/2022 In The 14 Days Before Symptom Onset, Have You Had Close Contact With A Person Who Is Under Investigation For COVID-19 While That Person Was Ill? No MIGRATION.318295 7264 Information not available 07/24/2022 What Type Of Diet Are You Following? REGULAR MIGRATION.761744 9343 Information not available 07/24/2022 What Is The Highest Grade Or Level Of School You Have Completed Or The Highest Degree You Have Received? TN99277-9 MIGRATION.083604 1304 Information not available 07/24/2022 What Is Your Relationship Status? MIGRATION.322791 3808 Information not available 07/24/2022 Do You Use Your Seat Belt Or Car Seat Routinely? Yes MIGRATION.038456 2969 Information not available 07/24/2022 Has Tobacco Cessation Counseling Been Provided? No MIGRATION.897499 0686 Information not available 07/24/2022 Have You Recently Traveled Abroad? No MIGRATION.283517 4285 Information not available 07/24/2022 Do You Have Any Dietary Restrictions? No MIGRATION.721324 8104 Information not available 07/24/2022 Sex: Female Functional Status Question Answer Note LastModified by foodjunky ion Details LastModified Time Do you use any illicit or recreational drugs? No MIGRATION.488818 5968 Information not available 07/24/2022 Do you or have you ever used any other forms of tobacco or nicotine? No MIGRATION.505914 1735 Information not available 07/24/2022 What is your level of alcohol consumption? Occasional MIGRATION.303691 7537 Information not available 07/24/2022 What is your occupation? [employer] MIGRATION.175451 7485 Information not available 07/24/2022 Mental Status None recorded. Family History Relationship Description Onset Age of this Age Resolved Age Notes LastModified by Organization Details LastModified Time Sister Diabetes mellitus MIGRATION.729 [id number] Not available 07/24/2022 05:55:58 Sister Hypertensive disorder MIGRATION.331 [id number] Not available 07/24/2022 05:55:58 Sister Hypercholest erolemia MIGRATION.522 [id number] Not available 07/24/2022 05:55:58 Father Diabetes mellitus MIGRATION.818 [id number] Not available 07/24/2022 05:55:58 Mother Hypertensive disorder MIGRATION.931 [id number] Not available 07/24/2022 05:55:58 Mother Hypercholest erolemia MIGRATION.985 [id number] Not available 07/24/2022 05:55:58 Medical History Condition Response PARATHYROID DISEASE Y HYPERTENSION Y HIGH CHOLESTEROL / HYPERLIPIDEMIA Y Gynecological HistoryNo gynecological history recorded. Obstetrics History GPAL:G 0 P 0 0 0 0 Past Encounters Encounter ID Performer Location Encounter Start Date Encounter Closed Date Diagnosis/Indication Diagnosis SNOMED-CT Code Diagnosis ICD10 Code Diagnosis Note [id number] Kalani Guzman MD [facility] [address] [place] [address] 01/19/2021 00:00:00 01/19/2021 17:16:07 [id number] Kalani Guzman MD [facility] [address] [place] [address] 06/26/2021 00:00:00 06/26/2021 14:55:19 [id number] [facility] [address] [place] [address] 01/08/2022 00:00:00 01/08/2022 17:08:52 [id number] Kalani Guzman MD [facility] [address] [place] [address] 08/15/2022 16:36:34 08/15/2022 17:15:33 Hypothyroidism 85141453 E03.9 TSH and FT4 in ideal range- [...] reduce inflammati on. Impaired f asting glycemia 313965043 R73.01 Continue ozempic 0.5 mg once weekly as patient tolerating well. Discussed carb counting and how to read food labels. Recommende d patient to utilize the diabetesfo [employer] from the ADA website to help with food preparatio n as this presents ideal carb content per meal so this will make carb counting much easier for patient. Recommende d she incorporat e natural insulin trim crew supervisor s such as pears, apples, cinnamon, anton [...] she chooses to go outside of the [facility] system to obtain labwork she was [...] Pineda Member ID Guarantor Name 08/15/2022 1 [facility] [id number] Frieda Baeza [id number] Frieda Baeza Notes Date Note Type Note [...] and sleep. She did receive something from [employer] to update her script. labs from 06/12/22:microalbu min 13 ug/mgglucose 85 mg/dLCr normalLFT wwzijl932/88/66/8 9TSH of 0.667 uIU/mlFT4 of 1.32 ng/dLa1c 4.9% Kalani Guzman MD [address] [facility] [address], [place], [address], [facility] 08/15/2022 17:58:49 OBGyn Episode No OBEpisode recorded.
[2024-11-02 14:45] LABS: Vitamin D 25 Hydroxy 25.6 ng/mL
== END 2024-11-02 13:33 | disposition home or self-care (01) ==
LOC: ANHLAB 13:34
PROVIDERS: PCP Family Medicine; Visit Provider Internal Medicine
DX: E78.2 Mixed hyperlipidemia (principal); I10 Essential (primary) hypertension; E06.3 Autoimmune thyroiditis; E21.3 Hyperparathyroidism, unspecified; R73.03 Prediabetes; E03.9 Hypothyroidism, unspecified; R79.89 Other specified abnormal findings of blood chemistry; E21.0 Primary hyperparathyroidism; M81.0 Age-related osteoporosis without current pathological fracture; E55.9 Vitamin D deficiency, unspecified
CPT/HCPCS: 36415; 80053; 82306

== ENCOUNTER 2024-11-27 09:34 | Outpatient (CLI) | payer OTHER, SELFPAY ==
--- OUTSIDE RECORDS SUMMARY | 2024-11-27 09:39 | XMS_ITS | Data Portability ---
Author Organization [facility] [employer], Main Office Address [address] [place] [address] Assessment No assessment recorded. Plan of Treatment Reminders Order Date Submit Date Provider Last Modified By Organization Details Last Modified Time Details Appointments None recorded. Lab HbA1c (hemoglobi n A1c), blood [address] (Lab), [address] [place] [address], [address], 17:09:32 CMP, serum or plasma [address] (Lab), [facility] [address], [address], 3 17:09:32 lipid panel, serum 2022 023 [facility] (Lab), [address] [place] [address], [address], 3 16:15:58 TSH + free T4, serum [address] (Lab), [facility] [address], [address], 3 17:09:32 Referral None recorded. Procedures None recorded. Surgeries None recorded. Imaging None recorded. Medication Orders Synthroid 88 mcg tablet 2022 023 [facility], [address] [facility] [address], [place], [address], 3 17:08:06 Patient TargetsNo targets recorded. Patient InstructionsNo instructions recorded. Reason for Referral None Reported. Results Created Date Observation Date Name Description Value Unit Range Abnormal Flag Note LastModifiedBy Organization Detail LastModifiedTime Result Notes None recorded. Problems Name Problem SNOMED Code Status Onset Date Resolution Date Notes Provider Name and Address Organization Details Recorded Time Hypertensive disorder 23957873 Active 2018 Not Available [facility] 3 06:03:05 Impaired fasting glycemia 466883074 Active 2021 Not Available [facility] 3 06:03:05 Hypothyroidis m 37558476 Active 2021 Not Available [facility] 3 06:03:05 Hyperlipidemi a 50936882 Active 2018 Not Available [facility] 3 06:03:05 Essential hypertension 74889160 Active 2021 Not Available [facility] 3 06:03:05 Problem Notes None recorded. Procedures Surgical History Date Name Laterality Status Provider Name and Address Organization Details Recorded Time Kidney Stones completed Not Available [facility] 07/24/2022 05:55:56 procedure on parathyroid gland completed Not Available [facility] 07/24/2022 05:55:56 Imaging Results None recorded. Procedure [...] Body weight Body temperature Heart rate Systolic And Diastolic Provider Name and Address Organization Details Last Updated DateTime 3 165.1 cm 26.5 kg/m2 06714.1 9 g 97.5 [degF] 79 /min 118/71 mm[Hg] AMY Rendon - S [place] [employer] [facility] 3 16:51:24 Date Recorded Body mass index (BMI) Body height Oxygen saturation Oxygen saturation in Arterial blood by Pulse oximetry Heart rate Body temperature Body weight Systolic And Diastolic Provider Name and Address Organization Details Last Updated DateTime 2 26 kg/m2 165.1 cm 99 % 99 % 72 /min 97.8 [degF] 55742.4 1 g 105/70 mm[Hg] Not Available [facility] 05:57:00 Social History Question Answer Notes LastModified by Organizat ion Details LastModified Time Tobacco Smoking Status Never Smoker Not Available [facility] 07/24/2022 05:53:29 What Is Your Level Of Caffeine Consumption? Occasional MIGRATION.398869 5303 Information not available 07/24/2022 In The 14 Days Before Symptom Onset, Have You Had Close Contact With A Laboratory-confirm ed COVID-19 While That Case Was Ill? No MIGRATION.898485 4155 Information not available 07/24/2022 In The 14 Days Before Symptom Onset, Have You Had Close Contact With A Person Who Is Under Investigation For COVID-19 While That Person Was Ill? No MIGRATION.688495 9181 Information not available 07/24/2022 What Type Of Diet Are You Following? REGULAR MIGRATION.376340 0674 Information not available 07/24/2022 What Is The Highest Grade Or Level Of School You Have Completed Or The Highest Degree You Have Received? PZ58184-1 MIGRATION.547664 1695 Information not available 07/24/2022 What Is Your Relationship Status? MIGRATION.794405 8928 Information not available 07/24/2022 Do You Use Your Seat Belt Or Car Seat Routinely? Yes MIGRATION.676081 0381 Information not available 07/24/2022 Has Tobacco Cessation Counseling Been Provided? No MIGRATION.644019 4317 Information not available 07/24/2022 Have You Recently Traveled Abroad? No MIGRATION.839289 6711 Information not available 07/24/2022 Do You Have Any Dietary Restrictions? No MIGRATION.649573 7548 Information not available 07/24/2022 Sex: Female Functional Status Question Answer Note LastModified by [employer] ion Details LastModified Time Do you use any illicit or recreational drugs? No MIGRATION.533995 3341 Information not available 07/24/2022 Do you or have you ever used any other forms of tobacco or nicotine? No MIGRATION.763266 7167 Information not available 07/24/2022 What is your level of alcohol consumption? Occasional MIGRATION.253560 4384 Information not available 07/24/2022 What is your occupation? [employer] MIGRATION.016946 4665 Information not available 07/24/2022 Mental Status None recorded. Family History Relationship Description Onset Age of this Age Resolved Age Notes LastModified by Organization Details LastModified Time Sister Diabetes mellitus MIGRATION.920 [id number] Not available 07/24/2022 05:55:58 Sister Hypertensive disorder MIGRATION.316 [id number] Not available 07/24/2022 05:55:58 Sister Hypercholest erolemia MIGRATION.757 7542603 Not available 07/24/2022 05:55:58 Father Diabetes mellitus MIGRATION.566 [id number] Not available 07/24/2022 05:55:58 Mother Hypertensive disorder MIGRATION.686 6012893 Not available 07/24/2022 05:55:58 Mother Hypercholest tatiannaolemdanny MIGRATION.540 6094053 Not available 07/24/2022 05:55:58 Medical History Condition Response PARATHYROID DISEASE Y HYPERTENSION Y HIGH CHOLESTEROL / HYPERLIPIDEMIA Y Gynecological HistoryNo gynecological history recorded. Obstetrics History GPAL:G 0 P 0 0 0 0 Past Encounters Encounter ID Performer Location Encounter Start Date Encounter Closed Date Diagnosis/Indication Diagnosis SNOMED-CT Code Diagnosis ICD10 Code Diagnosis Note [id number] Kalani Guzman MD [facility] [address] [place] [address] 01/19/2021 00:00:00 01/19/2021 17:16:07 [id number] Kalani Guzman MD [facility] [address] [place] [address] 06/26/2021 00:00:00 06/26/2021 14:55:19 [id number] [facility] [address] [place] [address] 01/08/2022 00:00:00 01/08/2022 17:08:52 [id number] Kalani Guzman MD [facility] [address] [place] [address] 08/15/2022 16:36:34 08/15/2022 17:15:33 Hypothyroidism 03658965 E03.9 TSH and FT4 in ideal range- [...] reduce inflammati on. Impaired f asting glycemia 645618464 R73.01 Continue ozempic 0.5 mg once weekly as patient tolerating well. Discussed carb counting and how to read food labels. Recommende d patient to utilize the diabetesfo [employer] from the ADA website to help with food preparatio n as this presents ideal carb content per meal so this will make carb counting much easier for patient. Recommende d she incorporat e natural insulin bridge carpenter s such as pears, apples, cinnamon, anton [...] she chooses to go outside of the [facility] system to obtain labwork she was [...] Recorded Advance Directives Directive None Recorded Payers Insurance Date Sequence Insurance Name Policy Number Policy Pineda Covered Member ID Pineda Member ID Guarantor Name 08/15/2022 1 [facility] [id number] Frieda Baeza [id number] Frieda Baeza Notes Date Note Type Note [...] and sleep. She did receive something from [employer] to update her script. labs from 06/12/22:microalbu min 13 ug/mgglucose 85 mg/dLCr normalLFT iafrqk342/88/66/8 9TSH of 0.667 uIU/mlFT4 of 1.32 ng/dLa1c 4.9% Kalani Guzman MD [address] [facility] [address], [place], [address], [facility] 08/15/2022 17:58:49 OBGyn Episode No OBEpisode recorded.
--- OUTSIDE RECORDS SUMMARY | 2024-11-27 09:39 | XMS_ITS | Clinical Summary ---
Author Organization [facility] [employer] Address [address] [place] [address] Care Team Providers Care Trimmer And Reinforcer Name Role Phone Babatunde Mccall MD Primary Care Provider [phone] Source Comments [facility] [employer],non-owned Affiliates and Associated Physician Practices is amultiple site organization consisting of ambulatory clinics and hospital sitesin [place], [place], [place] and [place]. This disclosure is being madepursuant to the Care Everywhere program and may not contain all information available regarding this patient. Last updated 18.[facility] [employer] Allergies No known active allergies Medications * [...] on file Legal Sex Female 6:13 AM [employer]ING CARP[employer] Gender Identity Not on file Sexual Orientation Not on file Last Filed Vital Signs Vital Sign Reading Time Taken Comments Blood Pressure 128/72 02/11/2020 12:10 PM CDT Pulse 90 02/11/2020 12:10 PM CDT Temperature 36.9 C (98.5 F) 06/02/2019 7:54 AM [facility] Respiratory Rate 16 06/02/2019 7:56 AM [facility] Oxygen Saturation 98% 06/02/2019 7:54 AM [facility] Inhaled Oxygen Concentration - - Weight 78.7 [...] PANEL (CALCIUM TOTAL) Routine 05/11/2019 8:52 AM [facility] Pre-op evaluation from Last 3 Months or Most Recently Relevant to Health Maintenance Results * (ABNORMAL) BASIC METABOLIC PANEL (CALCIUM TOTAL) (05/11/2019 8:52 AM [facility]) BUN 14 7 - 26 mg/dL 05/11/2019 10:25 AM [facility] Creatinine 0.7 0.6 - 1.2 mg/dL 05/11/2019 10:25 AM [facility] Sodium 144 136 - 145 mmol/L 05/11/2019 10:25 AM [facility] Potassium 4.2 3.5 - 4.5 mmol/L 05/11/2019 10:25 AM [facility] Chloride 106 98 - 107 mmol/L 05/11/2019 10:25 AM [facility] CO2 26 22 - 29 mmol/L 05/11/2019 10:25 AM [facility] Glucose 111 70 - 115 mg/dL [...] Lab Venipuncture / Unknown 05/11/2019 8:52 AM [facility] 05/11/2019 9:49 AM [facility] Marianne Lucas DRIVER MESSENGER-STONE FINISHER LAB - CHEMISTRY O RDERABLES Final Result [facility] [address] [phone] from Last 3 Months or Most Recently Relevant to Health Maintenance Insurance Member Subscriber Plan / Payer (Ef fective 2018-Present) Name:Frieda Brooks Relation to Subscriber:Self Name:FRIEDA BROOKS Payer ID:[id number] (NAIC) Type:PPO Address: [place] [phone] Advance Directives * Full Code (Latest Code Status on File) Date Activated Date Inactivated Comments 06/01/2019 4:10 PM 06/02/2019 11:49 AM Care Teams Trimmer And Reinforcer Relationship Specialty Start Date End Date Babatunde Mccall MD [address] [place] [id number] PCP - General 03/22/19
--- OUTSIDE RECORDS SUMMARY | 2024-11-27 09:39 | XMS_ITS | Data Portability ---
Author Organization [facility] [place] Address [address] [place] [address] Care Team Providers [employer] Counter Sales Person Name Role Phone RAYMONDBERNARDO Primary Care Provider Assessment Encounter Date Assessment [...] a year unless there are new symptoms. [email or web address] Not available 02/23/2024 17:37:28 Plan of Treatment [...] epith elial Lesio n or Anastasia cummins Elect katherine ch sherita d by [...] as clini [place] warra nted. Not Available [facility] (Lab) [address], [place], [address], 12/24/2020 14:45:41 01/24/20 22 01/23/2022 IMAGE GUIDE [...] Recei ricarda: 01/24 0301 First Scree n: Frase r, Vandana , CT Speci men: Scree ruddy Pap - Image d, Cervi x STATE MENT OF ADEQU ACY: Satis facto ry for evalu ation Trans forma tion zone compo nent prese nt FINAL DIAGN OSIS: Negat zee for Intra epith elial Lesio n or Malig maria g (NIL) . Atrop hy prese nt. Elect katherine ch sherita d by Vandana Combs , VANE on 022 at 1:47 PM ----- ----- [...] preciado nted. Not Available [facility] [address], [place], [address], 01/30/2022 14:49:34 02/11/20 23 02/10/2023 IMAGE GUIDE D PAP AND HPV REGAR DLESS image guided Pap, HPV regardless of Pap result SEE RESULT S BELOW CASE REPOR T: Cytol ogy Gynec ologi dionte Repor t Case: [id number] Autho brittanybrian massimo Provi ana cristina: Donna Ramirez MD Colle cted: 02/10 1730 Order ing Locat ion: [place] [facility] Recei ricarda: 02/11 0702 First Scree n: Marii Echeverria Speci men: Scree ruddy Pap - Image [...] as clini [place] preciado nted. Not Available [facility] (Lab) [address], [place], [address], 02/11/2023 20:47:40 02/23/20 24 02/23/2024 IMAGE GUIDE [...] Neopl tim (if appli cable ): Signi jana coulter Clini dionte Findi ngs: Other Histo [...] as clini [place] war[place] nted. Not Available [facility] (Lab) [address], [place], [address], 03/01/2024 12:00:52 04/23/20 21 04/20/2021 MAMMO , scree ruddy, digit al, bilat eral No observ ation record ed. [address] [address], [place], [address], 05/06/2021 19:22:24 06/14/19 23 06/14/2022 MAMMO , scree ruddy, bilat eral No observ ation record ed. [address] [address], [place], [address], 06/16/2022 10:46:28 06/15/19 23 06/14/2022 MAMMO , scree ruddy, bilat eral No observ ation record ed. [address] [address], [place], [address], 06/16/2022 17:02:09 06/19/19 23 06/19/2022 MAMMO , diagn ostic , digit al, unila teral No observ ation record ed. [address] [address], [place], [address], 06/20/2022 18:38:36 12/18/19 23 12/17/2022 imagi ng/di agnos tic resul t No observ ation record ed. [facility] [address], [place], [address], 12/18/2022 17:12:38 12/18/1912/17/2022 imagi ng/di anup tic resul t No observ ation record ed. [facility] [address], [place], [address], 12/28/2022 16:09:39 Result Notes None recorded. Problems Name Problem SNOMED Code Status Onset Date Resolution Date Notes Provider Name and Address Organization Details Recorded Time Pregnanc y test negative [id number] Completed 201512/21/2020 Encounte r for pregnanc y test, result negative ;Recorde d Elsewher e: No Locat ion: [facility] ource: EHR Raisin Separator Operator cece: N Wenditi ce ID: [id number] Thai lable Time: 08:30:00 AM [facility] 1 10:11:45 Evaluati on finding Completed 201612/21/2020 Hematuri a, unspecif ied;Branden rded Elsewher e: No Locat ion: [facility] ource: EHR Raisin Separator Operator cece: N Wenditi ce ID: [id number] Thai lable Time: 08:45:00 AM [facility] 10:11:[address] Concept Completed 201712/21/2020 Well woman check w/o abnormal finding; Recorded Elsewher e: No Locat ion: [facility] S ource: EHR Raisin Separator Operator cece: N Practi ce ID: [id number] Thai lable Time: 08:30:00 AM [facility] 10:12:04 Speciali zed medical examinat ion Completed 201112/21/2020 Gynecolo gical Examinat ion;Branden rded Elsewher e: No Locat ion: [facility] S ource: EHR Raisin Separator Operator cece: N Practi ce ID: [id number] Thai lable Time: 05:00:00 PM Frieda Lawrence [facility] 1 10:12:07 Atypical glandula r cells on cervical Papanico laou smear [id number] Active 2010 Abnormal glandula r Papanico laou smear of cervix;R ecorded Elsewher e: No Locat ion: [facility] N Milagros ce ID: [id number] Thai lable Time: 11:45:00 AM Not Available [facility] 0 17:26:58 Screenin g for malignan t neoplasm of rectum Completed 201612/21/2020 Encounte r for screenin g for malignan t neoplasm of rectum;R ecorded Elsewher e: No Locat ion: [facility]: Brian Linares ce ID: [id number] Thai lable Time: 08:45:00 AM Fried[address]alito Lawrence [facility] 1 10:12:00 Instrument Specialist al complica tion of intraute rine contrace ptive device Completed 201512/21/2020 Displace ment of intraute rine contrace ptive device, init;Rec orded Elsewher e: No Locat ion: [facility]: Brian Linares ce ID: [id number] Thai lable Time: 08:45:00 AM Friedalalito Lawrence [facility] 1 10:11:41 Clinical finding Completed 201512/21/2020 Presence of (intraut erine) contrace ptive device;R ecorded Elsewher e: No Locat ion: [facility]: Brian Linares ce ID: [id number] Thai lable Time: 08:30:00 AM Frieda [facility] 1 10:11:33 Insertio n of intraute rine contrace ptive device Completed 201512/21/2020 Encounte r for insertio n of intraute rine contrace ptive device;R ecorded Elsewher e: No Locat ion: [facility] ource: EHR Raisin Separator Operator cece: N Practi ce ID: [id number] Thai lable Time: 08:30:00 AM Frieda Lawrence [facility] 10:11:[address] Concept Completed 201512/21/2020 Encntr for general adult medical exam w/o abnormal findings ;Recorde d Elsewher e: No Locat ion: [facility] ource: EHR Raisin Separator Operator cece: N Practi ce ID: [id number] Thai lable Time: 08:30:00 AM Frieda Lawrence [facility] 10:12:03 Adult health examinat ion Completed 201412/21/2020 Routine general medical examinat ion at a [facility] facility ;Practic e ID: [address] [facility] 10:11:30 Screenin g for malignan t neoplasm of cervix Completed 201412/21/2020 Pap Smear;Pr actice ID: 0001 Frieda [facility] 10:11:58 Removal of intraute rine device Completed 201512/21/2020 Encounte r for removal of intraute rine contrace ptive device;P ractice ID: [address] [facility] 10:11:[address] Concept Completed 201612/21/2020 Encounte r for general adult medical exam w abnormal findings ;Practic e ID: 0001 Frieda [facility] 10:11:48 Problem Notes None recorded. Procedures Surgical History Date Name Laterality Status Provider Name and Address Organization Details Recorded Time 024 Date of Last Mammogram completed Stefanie Negar [facility] 02/23/2024 17:39:35 023 Date of Last Pap Smear completed Frieda [facility] 02/10/2023 16:25:15 022 IUD Removal completed Benton Ramirez MD [address], [place], [address], [facility] 08/22/2021 18:30:22 020 Excision and closure completed Benton Ramirez MD [address], [place], [address], [facility] 12/17/2019 22:25:31 019 parathyroidectomy completed [facility] 12/21/2020 10:36:19 Imaging Results None [...] Prescrib ed Elsewher e: Yes Loca tion: [facility] odify By: angle jimenez DateTime : 11/05/19 19 11:00:00 AM Not Available Not Available Not Available atorvasta tin 20 mg tablet take 1 tablet by oral route every day 06/27 completed Prescrib ed Elsewher e: Yes Loca tion: [facility] odify By: suresh aminunter DateTime : 06/09/19 15 08:30:00 AM Not [...] ed Elsewher e: Yes [facility] By: la hartman DateTime : 06/09/19 [...] Prescrib ed Elsewher e: Yes [facility] By: suresh aminunttatianna DateTime : 06/27/19 [...] Prescrib ed Elsewher e: Yes [facility] odify By: la hartman DateTime : 01/08/20 12 05:00:00 PM Not Available Not Available Not Available losartan 100 mg tablet TAKE 1 TABLET BY MOUTH EVERY DAY 12/21 completed Not Available Not Available Not Available Calcio Tegan 500 mg tablet 04/28 completed Prescrib ed Elsewher e: Yes Loca tion: [facility] odify By: la hartman DateTime : 01/08/20 12 05:00:00 PM Not Available Not Available Not Available Synthroid active Not Available Not Karine ilable Not Available Simcor 1,000 mg-20 mg tablet,ex tended release take 1 tablet by oral route every day at bedtime after a low-fat snack 06/09 completed Prescrib ed Elsewher e: Yes Loca tion: [facility] odify By: la hartman DateTime : 01/08/20 12 05:00:00 PM Not Available Not Available Not Available nisoldipi ne ER 8.5 mg tablet,ex tended release 24 hr take 1 tablet by oral route every day 06/09 completed Prescrib ed Elsewher e: Yes Loca tion: [facility] odify By: la hartman DateTime : 01/08/20 12 05:00:00 PM Not Available Not Available Not Available amlodipin e besylate (bulk) 100 % powder 08/22 completed Prescrib ed Elsewher e: Yes Loca tion: [facility] odify By: la hartman DateTime : 06/09/19 15 08:30:00 AM Not Available Not Available Not Available Fish Oil 100 mg-160 mg-1,000 mg capsule 04/28 completed Prescrib ed Elsewher e: Yes Loca tion: [facility] odify By: la hartman DateTime : 01/08/20 [...] Body mass index (BMI) Body weight Systolic And Diastolic Provider Name and Address Organization Details Last Updated DateTime 08/22/2021 164.47 cm 27.7 kg/m2 23423.74 g 127/85 mm[Hg] Frieda Lawrence [facility] 08/22/2021 17:27:06 Date Recorded Body height Body mass index (BMI) Body weight Systolic And Diastolic Provider Name and Address Organization Details Last Updated DateTime 12/21/2020 164.47 cm 27.7 kg/m2 87761.74 g 119/73 mm[Hg] [facility] 12/21/2020 10:35:01 Date Recorded Body height Body mass index (BMI) Body weight Systolic And Diastolic Provider Name and Address Organization Details Last Updated DateTime 01/23/2022 164.47 cm 25.8 kg/m2 70852.22 g 118/69 mm[Hg] [facility] 01/23/2022 17:54:46 Date Recorded Body height Body mass index (BMI) Body weight Systolic And Diastolic Provider Name and Address Organization Details Last Updated DateTime 02/10/2023 164.47 cm 26.2 kg/m2 32421.41 g 110/69 mm[Hg] [facility] 02/10/2023 16:24:24 Date Recorded Body height Body mass index (BMI) Body weight Systolic And Diastolic Provider Name and Address Organization Details Last Updated DateTime 02/23/2024 164.47 cm 26.4 kg/m2 77426.44 g 121/79 mm[Hg] Stefanie Bills [facility] 02/23/2024 17:38:11 Social History Question Answer Notes LastModified by Organizat ion Details LastModified Time Tobacco Smoking Status Never Smoker Ivettenory Dimasgabe blackwodo [facility] 02/10/2023 15:57:20 Are You Blind [...] Or The Highest Degree You Have Received? 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 Moderate Information not available 01/23/2022 Mental Status Question Answer Note LastModified by Organization D etails LastModified Time Do you feel stressed (tense, restless, nervous, or anxious, or unable to sleep at night)? [id number] Information not available 12/21/2020 Family History Relationship Description Onset Age of this Age Resolved Age Notes LastModified by Organization Details LastModified Time Mother Hypertensive disorder Not available 2019 16:50:24 Mother Hyperlipidem ia [email or web address] Not available 2023 17:05:32 Father Hypertensive disorder Not available 2019 16:50:24 Father Diabetes mellitus Not available 2019 16:50:42 Sister Hypertensive disorder Not available 2019 16:50:24 Sister Diabetes mellitus Not available 2019 16:50:42 Sister Hyperlipidem ia [email or web address] Not available 2023 17:05:32 Maternal Grandmother Hypertensive [...] SNOMED-CT Code Diagnosis ICD10 Code Diagnosis Note [id number] Benton Ramirez MD [place] [address] [address] 12/03/2019 12:21:19 12/03/2019 13:17:36 Gynecologic examination 48253871 Z01.419 This patient is here for her [...] with nodular areas within the polypoid and. [id number] Benotn Ramirez MD [place] [address],[place] [address] 12/17/2019 16:19:23 12/18/2019 13:40:41 Skin lesion 40948424 L98.9 Excision of skin lesion was completed. She tolerated the procedure well. [id number] Benton Ramirez MD [place] [address],[place] [address] 12/24/2019 14:07:52 12/24/2019 14:48:04 Skin lesion 39025034 L98.9 This patient is a 59-year-ol d female who presents for follow-up on resection of skin lesion. The skin lesion was on her medial right thigh. It is well-heale d. There is no evidence of infection. It was a nevuswitha lipoma type character. [id number] Benton Ramirez MD [place] [address],[place] [address] 12/21/2020 10:05:20 12/21/2020 11:36:34 Gynecologic examination 67555071 Z01.419 This patient is here for her [...] l - [done ] Pap - today [id number] Benton Ramirez MD [place] [address],[place] [address] 08/22/2021 17:18:58 08/22/2021 18:32:49 Contraception care management 421921619 Z30.9 [id number] MD Smiley Quach [address],[place] [address] 01/23/2022 17:34:02 01/23/2022 21:19:53 Gynecologic examination 41204876 Z01.419 Z11.51 This patient is here for [...] l - [done ] Pap - today [id number] Benton Ramirez MD [place] [address],[place] [address] 02/10/2023 15:57:06 02/10/2023 17:21:02 Gynecologic examination 11312967 Z01.419 Z11.51 This patient is here for [...] l - [done ] Pap - today [id number] Benton Ramirez MD [place] [address] [address] 02/23/2024 17:03:43 02/23/2024 17:59:44 Gynecologic examination 50176228 Z01.419 Z11.51 This patient is here for [...] Member ID Pineda Member ID Guarantor Name 02/24/2024 1 [facility] [id number] Frieda Baeza [id number] Frieda Baeza Notes Date Note Type Note [...] 40 Benton Ramirez MD [address], [place], [address], [facility] 12/21/2020 11:23:51 08/22/2021 text/html Patient presents for IUD removal. Benton Ramirez MD [address], [place], [address], [facility] 08/22/2021 18:30:55 01/23/2022 text/html Annual GYNReport ed bypatient.History: no gynecologic complaints Urinary symptoms:No hematuria; No incontinence Vulva:No genital lesion Vagina:Normal vaginal discharge Breast:No breast pain; No breast lump; No nipple discharge Sexual complaints:No sexual complaints; No pain during intercourse Menopausal Symptoms:No menopausal symptoms Psychological symptoms:No depression; No anxiety Preventive measures:Encourage self breast examination; Encourage regular exercise Benton Ramirez MD [address], [place], [address], [facility] 01/23/2022 18:34:24 02/10/2023 text/html Annual GYNReport ed bypatient.History: no gynecologic complaints Menstrual cycle:Normal menses Urinary symptoms:No hematuria; No incontinence Vulva:No genital lesion Vagina:Normal vaginal discharge Breast:No breast pain; No breast lump Sexual complaints:No sexual complaints; No pain during intercourse Menopausal Symptoms:No menopausal symptoms Psychological symptoms:No depression; No anxiety Preventive measures:Encourage self breast examination; Encourage regular exercise Benton Ramirez MD [address], [place], [address], [facility] 02/10/2023 17:19:28 02/23/2024 text/html Annual GYNReport ed bypatient.History: no gynecologic complaints Urinary symptoms:No hematuria; No incontinence Vulva:No genital lesion Vagina:Normal vaginal discharge Breast:No breast pain; No breast lump Sexual complaints:No sexual complaints Menopausal Symptoms:No menopausal symptoms; Normal vaginal lubrication Psychological symptoms:No depression; No anxiety Preventive measures:Encourage self breast examination; Encourage regular exercise Benton Ramirez MD [address], [place], [address], [facility] 02/23/2024 17:56:30 OBGyn Episode Ob Episode Information Episode Created Date Number of Fetuses Patient Bloodtype Patient rh Status Prepregnancy Weight lbs Domestic Partner Domestic Partner Phone Father Name Orthopedically Impaired Teacher Status 12/03/19 2 CLOSED Fetus Data First Name Last Name Admitted to NICU Weight (g) Sex Living Outcome Pediatric Complications Fetus ID Race Codes Race Delivery Type 7704 M [id number] Vaginal Delivery 2096.86 3 [id number] Vaginal Delivery Ishan Calculation Initial Ishan Date [...] Domestic Partner Domestic Partner Phone Father Name Orthopedically Impaired Teacher Status 12/03/19 20 1 DELETED Ishan Calculation [...] Domestic Partner Domestic Partner Phone Father Name Orthopedically Impaired Teacher Status 12/03/19 1 CLOSED Fetus Data First [...] Domestic Partner Domestic Partner Phone Father Name Orthopedically Impaired Teacher Status 12/03/19 1 CLOSED Fetus Data First [...]
== END 2024-11-27 09:35 | disposition home or self-care (01) ==
LOC: ANHLAB 09:37
PROVIDERS: PCP Family Medicine; Visit Provider Internal Medicine
DX: E78.2 Mixed hyperlipidemia (principal); I10 Essential (primary) hypertension; E06.3 Autoimmune thyroiditis; E21.3 Hyperparathyroidism, unspecified; R73.03 Prediabetes; E03.9 Hypothyroidism, unspecified; R79.89 Other specified abnormal findings of blood chemistry; E21.0 Primary hyperparathyroidism; M81.0 Age-related osteoporosis without current pathological fracture; E55.9 Vitamin D deficiency, unspecified
CPT/HCPCS: 36415; 82306

== ENCOUNTER 2025-03-09 15:03 | Outpatient (CLI) | payer OTHER, SELFPAY ==
--- NOTE | ~2025-03-09 | MM_ITS ---
EXAMINATION: MM screening jermain BI w sarah HISTORY: Screening TECHNIQUE: Craniocaudal and mediolateral oblique 3-D tomosynthesis images were obtained and synthetic 2-D images were generated. CAD analysis was submitted and interpreted. COMPARISON: 06/14/2022 BREAST PARENCHYMAL COMPOSITION: The breasts are heterogeneously dense, which may obscure small masses. FINDINGS: There is no evidence of suspicious mass, calcification, or architectural distortion to suggest malignancy. There has been no suspicious interval change. IMPRESSION: 1. No mammographic evidence of malignancy. Recommend routine screening mammography in one year. BI-RADS Category 2: Benign finding(s) Reviewed, dictated and finalized at location Q. IMPRESSION: 1. No mammographic evidence of malignancy. Recommend routine screening mammogra phy in one year. BI-RADS Category 2: Benign finding(s)
--- OUTSIDE RECORDS SUMMARY | 2025-03-09 17:13 | XMS_ITS | Data Portability ---
Author Organization [facility] [place] Address [address] [place] [address] Care Team Providers Care Hardware Engineer Name Role Phone RAYMONDBERNARDO Primary Care Provider [...] a year unless there are new symptoms. [email or web address] Not available 02/23/2024 17:37:28 Plan of Treatment [...] clini [place] warra nted. Not Available [facility] (Lab) [address], [place], [address], 12/24/2020 14:45:41 01/24/20 22 01/23/2022 IMAGE GUIDE [...] preciado nted. Not Available [facility] [address], [place], [address], 01/30/2022 14:49:34 02/11/20 23 02/10/2023 IMAGE GUIDE [...] clini [place] preciado nted. Not Available [facility] (Lab) [address], [place], [address], 02/11/2023 20:47:40 02/23/20 24 02/23/2024 IMAGE GUIDE [...] clini [place] warra nted. Not Available [facility] (Lab) [address], [place], [address], 03/01/2024 12:00:52 04/23/20 21 04/20/2021 MAMMO , scree ruddy, digit al, bilat eral No observ ation record ed. [address] [address], [place], [address], 05/06/2021 19:22:24 06/14/19 23 06/14/2022 MAMMO , scree ruddy, bilat eral No observ ation record ed. [address] [address], [place], [address], 06/16/2022 10:46:28 06/15/19 23 06/14/2022 MAMMO , scree ruddy, bilat eral No observ ation record ed. [address] [address], [place], [address], 06/16/2022 17:02:09 06/19/19 23 06/19/2022 MAMMO , diagn ostic , digit al, unila teral No observ ation record ed. [address] [address], [place], [address], 06/20/2022 18:38:36 12/18/19 23 12/17/2022 imagi ng/di agnos tic resul t No observ ation record ed. [facility] [address], [place], [address], 12/18/2022 17:12:38 12/18/19 23 12/17/2022 imagi ng/di anup tic resul t No observ ation record ed. [facility] [address], [place], [address], 12/28/2022 16:09:39 Result Notes None recorded. Problems Name Problem SNOMED Code Status Onset Date Resolution Date Notes Provider Name and Address Organization Details Recorded Time Atypical glandula r cells on cervical Papanico laou smear 971620156 Active 2010 Abnormal glandula r Papanico laou smear of cervix;R ecorded Elsewher e: No Locat ion: [facility] S ource: EHR Um Specialist cece: N Milagros ce ID: [id number] Thai lable Time: 11:45:00 AM Not Available [facility] 0 17:26:58 Speciali zed medical examinat ion Completed 201112/21/2020 Gynecolo gical Examinat ion;Branden rded Elsewher e: No Locat ion: [facility] S ource: EHR Um Specialist cece: N Wenditi ce ID: 0001 Thai lable Time: 05:00:00 PM Frieda blackwood [facility] 1 10:12:07 Adult health examinat ion Completed 201412/21/2020 Routine general medical examinat ion at a health care facility ;Practic e ID: 0001 Frieda blackwood [facility] 1 10:11:30 Screenin g for malignan t neoplasm of cervix Completed 201412/21/2020 Pap Smear;Pr actice ID: 0001 Frieda Lawrence merced [facility] [address] 10:11:[address] Concept Completed 201512/21/2020 Encntr for general adult medical exam w/o abnormal findings ;Recorde d Elsewher e: No Locat ion: [facility] S ource: EHR Um Specialist cece: N Practi ce ID: 0001 Thai lable Time: 08:30:00 AM Frieda Lawrence [facility] 10:12:03 Removal of intraute rine device Completed 201512/21/2020 Encounte r for removal of intraute rine contrace ptive device;P ractice ID: 0001 Frieda Lawrence [facility] 10:11:51 Pregnanc y test negative [id number] Completed 201512/21/2020 Encounte r for pregnanc y test, result negative ;Recorde d Elsewher e: No Locat ion: [facility] S ource: EHR Um Specialist cece: N Practi ce ID: 0001 Thai lable Time: 08:30:00 AM Frieda [facility] 10:11:45 Clinical finding Completed 201512/21/2020 Presence of (intraut erine) contrace ptive device;R ecorded Elsewher e: No Locat ion: [facility] S ource: EHR Um Specialist cece: N Practi ce ID: 0001 Thai lable Time: 08:30:00 AM Frieda [facility] 10:11:33 Insertio n of intraute rine contrace ptive device Completed 201512/21/2020 Encounte r for insertio n of intraute rine contrace ptive device;R ecorded Elsewher e: No Locat ion: [facility] S ource: EHR Um Specialist cece: N Practi ce ID: [id number] Thai lable Time: 08:30:00 AM Frieda [facility] 10:11:38 [employer] al complica tion of intraute rine contrace ptive device Completed 201512/21/2020 Displace ment of intraute rine contrace ptive device, init;Rec orded Elsewher e: No [facility] Um Specialist cece: N Practi ce ID: 0001 Thai lable Time: 08:45:00 AM Frieda Lawrence [facility] 1 10:11:41 Evaluati on finding Completed 201612/21/2020 Hematuri a, unspecif ied;Branden rded Elsewher e: No Locat ion: [facility] S ource: EHR Um Specialist cece: N Practi ce ID: [id number] Thai lable Time: 08:45:00 AM Frieda Lawrence [facility] 10:11:35 Screenin g for malignan t neoplasm of rectum Completed 201612/21/2020 Encounte r for screenin g for malignan t neoplasm of rectum;R ecorded Elsewher e: No Locat ion: [facility] S ource: EHR Um Specialist cece: N Practi ce ID: 0001 Thai lable Time: 08:45:00 AM Friedalalito Lawrence [facility] [address] 10:12:[address] Concept Completed 201612/21/2020 Encounte r for general adult medical exam w abnormal findings ;Practic e ID: 0001 Frieda Lawrence [facility] 10:11:[address] Concept Completed 201712/21/2020 Well woman check w/o abnormal finding; Recorded Elsewher e: No Locat ion: [facility] S ource: EHR Um Specialist cece: N Practi ce ID: 0001 Thai lable Time: 08:30:00 AM Frieda Lawrence [facility] 1 10:12:04 Problem Notes None recorded. Procedures Surgical History Date Name Laterality Status Provider Name and Address Organization Details Recorded Time 024 Date of Last Mammogram completed Stefanie Negar [facility] 02/23/2024 17:39:35 023 Date of Last Pap Smear completed [facility] 02/10/2023 16:25:15 022 IUD Removal completed Benton Ramirez MD [address], [place], [address], [facility] 08/22/2021 18:30:22 020 Excision and closure completed Benton Ramirez MD [address], [place], [address], [facility] 12/17/2019 22:25:31 [address] [facility] 12/21/2020 10:36:19 Imaging Results None recorded. [...] Prescrib ed Elsewher e: Yes Loca tion: [facility] M odify By: angle jimeenz DateTime : 11/05/19 19 11:00:00 AM Not Available Not Available Not Available atorvasta tin 20 mg tablet take 1 tablet by oral route every day 06/27 completed Prescrib ed Elsewher e: Yes Loca tion: [facility] M odify By: suresh aminunter DateTime : [...] Prescrib ed Elsewher e: Yes [facility] By: la hartman DateTime : [...] Prescrib ed Elsewher e: Yes [facility] By: suresh aminunttatianna DateTime : [...] Prescrib ed Elsewher e: Yes [facility] odify By: la hartman DateTime : 01/08/20 12 05:00:00 PM Not Available Not Available Not Available losartan 100 mg tablet TAKE 1 TABLET BY MOUTH EVERY DAY 12/21 completed Not Available Not Available Not Available Calcio Tegan 500 mg tablet 04/28 completed Prescrib ed Elsewher e: Yes Loca tion: [facility] odify By: la hartman DateTime : 01/08/20 12 05:00:00 PM Not Available Not Available Not Available Synthroid active Not Available Not Karine ilable Not Available Simcor 1,000 mg-20 mg tablet,ex tended release take 1 tablet by oral route every day at bedtime after a low-fat snack 06/09 completed Prescrib ed Elsewher e: Yes Loca tion: [facility] odify By: la hartman DateTime : 01/08/20 12 05:00:00 PM Not Available Not Available Not Available nisoldipi ne ER 8.5 mg tablet,ex tended release 24 hr take 1 tablet by oral route every day 06/09 completed Prescrib ed Elsewher e: Yes Loca tion: [facility] odify By: la hartman DateTime : 01/08/20 12 05:00:00 PM Not Available Not Available Not Available amlodipin e besylate (bulk) 100 % powder 08/22 completed Prescrib ed Elsewher e: Yes Loca tion: [facility] odify By: la hartman DateTime : 06/09/19 15 08:30:00 AM Not Available Not Available Not Available Fish Oil 100 mg-160 mg-1,000 mg capsule 04/28 completed Prescrib ed Elsewher e: Yes Loca tion: [facility] odify By: la hartman DateTime : [...] Updated DateTime 08/22/2021 164.47 cm 27.7 kg/m2 87301.74 g 127/85 mm[Hg] Frieda Lawrence [facility] 08/22/2021 17:27:06 Date Recorded Body height Body mass index (BMI) Body weight Systolic And Diastolic Provider Name and Address Organization Details Last Updated DateTime 12/21/2020 164.47 cm 27.7 kg/m2 68237.74 g 119/73 mm[Hg] [facility] 12/21/2020 10:35:01 Date Recorded Body height Body mass index (BMI) Body weight Systolic And Diastolic Provider Name and Address Organization Details Last Updated DateTime 01/23/2022 164.47 cm 25.8 kg/m2 05914.22 g 118/69 mm[Hg] [facility] 01/23/2022 17:54:46 Date Recorded Body height Body mass index (BMI) Body weight Systolic And Diastolic Provider Name and Address Organization Details Last Updated DateTime 02/10/2023 164.47 cm 26.2 kg/m2 54704.41 g 110/69 mm[Hg] [facility] 02/10/2023 16:24:24 Date Recorded Body height Body mass index (BMI) Body weight Systolic And Diastolic Provider Name and Address Organization Details Last Updated DateTime 02/23/2024 164.47 cm 26.4 kg/m2 29657.44 g 121/79 mm[Hg] Stefanie Bills [facility] 02/23/2024 17:38:11 Social History Question Answer Notes LastModified by Organizat ion Details LastModified Time Tobacco Smoking Status Never Smoker Ivettenory Dimasgabe blackwood [facility] 02/10/2023 15:57:20 Are You Blind Or [...] Or The Highest Degree You Have Received? [id number] Information not available 12/21/2020 Are There Any [...] not available 01/23/2022 Are you able to walk independently without assistance or assistive devices? YESWOREST Information not available 12/21/2020 What is your occupation? [employer] Information not available 12/21/2020 What is your exercise level? Moderate Information not available 01/23/2022 Mental Status Question Answer Note LastModified by Organization D etails LastModified Time Do you feel stressed (tense, restless, nervous, or anxious, or unable to sleep at night)? [id number] Information not available 12/21/2020 Family History Relationship Description Onset Age of this Age Resolved Age Notes LastModified by Organization Details LastModified Time Mother Hypertensive disorder Not available 2019 16:50:24 Mother Hyperlipidem ia [email or web address] Not available 2023 17:05:32 Father Hypertensive disorder Not available 2019 16:50:24 Father Diabetes mellitus Not available 2019 16:50:42 Sister Hypertensive disorder Not available 2019 16:50:24 Sister Diabetes mellitus Not available 2019 16:50:42 Sister Hyperlipidem ia [email or web address] Not available 2023 17:05:32 Maternal Grandmother Hypertensive [...] Diagnosis SNOMED-CT Code Diagnosis ICD10 Code Diagnosis IMO Codes Diagnosis Note [id number] Benton Ramirez MD [place] [address] [address] 12/03/2019 12:21:19 12/03/2019 13:17:36 Gynecologic examination 60326050 Z01.419 This patient is here for her [...] with nodular [place]. [id number] Benton Ramirez MD [place] [address],[place] [address] 12/17/2019 16:19:23 12/18/2019 13:40:41 Skin lesion 10692827 L98.9 Excision of skin lesion was completed. She tolerated the procedure well. [id number] Benton Ramirez MD [place] [address],[place] [address] 12/24/2019 14:07:52 12/24/2019 14:48:04 Skin lesion 51019694 L98.9 This patient is a 59-year-ol d female who presents for follow-up on resection of skin lesion. The skin lesion was on her medial right thigh. It is well-heale d. There is no evidence of infection. It was a nevuswitha lipoma type character. [id number] Benton Ramirez MD [place] [address],[place] [address] 12/21/2020 10:05:20 12/21/2020 11:36:34 Gynecologic examination 35028127 Z01.419 This patient is here for her [...] l - [done ] Pap - today [id number] Benton Ramirez MD [place] [address],[place] [address] 08/22/2021 17:18:58 08/22/2021 18:32:49 Contraception care management 054922368 Z30.9 [id number] Benton Ramirez MD [place] [address],[place] [address] 01/23/2022 17:34:02 01/23/2022 21:19:53 Gynecologic examination 98596402 Z01.419 Z11.51 This patient is here for [...] l - [done ] Pap - today [id number] Benton Ramirez MD [place] [address] [address] 02/10/2023 15:57:06 02/10/2023 17:21:02 Gynecologic examination 75640557 Z01.419 Z11.51 This patient is here for [...] l - [done ] Pap - today [id number] Benton Ramirez MD [place] [address] [address] 02/23/2024 17:03:43 02/23/2024 17:59:44 Gynecologic examination 85079816 Z01.419 Z11.51 This patient is here for [...] Pineda Member ID Guarantor Name 02/24/2024 1 [facility] [id number] Frieda Baeza [id number] Frieda Baeza Notes Date Note Type Note Provider Name and Address Organization Details Recorded Time 12/22/19 21 text/htm l Annual GYNReported by PatientHistoryFor history, patient reportsno gynecologic complaints.Genitourinary symptomsFor menstrual cycle, patient reportsnormal menses. For urinary symptoms, patient reportsno hematuriaandno incontinence. For vulva, patient reportsno genital lesion. For vagina, patient reportsnormal vaginal discharge.Breast symptomsFor breast, patient reportsno breast pain,no breast lump, andno nipple discharge.Endocrine symptomsFor sexual complaints, patient reportsno sexual complaints,no pain during intercourse, andnormal libido. For menopausal symptoms, patient reportsno menopausal symptoms.Psychological symptomsFor psychological symptoms, patient reportsno depressionandno anxiety.Preventative measuresFor preventive measures, patient reportsencourage self breast examination,encourage regular exercise, andencourage regular mammograms starting age 40. Benton Ramirez MD [address], [place], [address], [facility] 12/21/2020 11:23:51 08/23/19 22 text/htm l Patient presents for IUD removal. Benton Ramirez MD [address], [place], [address], [facility] 08/22/2021 18:30:55 01/24/20 22 text/htm l Annual GYNReported by PatientHistoryFor history, patient reportsno gynecologic complaints.Genitourinary symptomsFor urinary symptoms, patient reportsno hematuriaandno incontinence. For vulva, patient reportsno genital lesion. For vagina, patient reportsnormal vaginal discharge.Breast symptomsFor breast, patient reportsno breast pain,no breast lump, andno nipple discharge.Endocrine symptomsFor sexual complaints, patient reportsno sexual complaintsandno pain during intercourse. For menopausal symptoms, patient reportsno menopausal symptoms.Psychological symptomsFor psychological symptoms, patient reportsno depressionandno anxiety.Preventative measuresFor preventive measures, patient reportsencourage self breast examinationandencourage regular exercise. Benton Ramirez MD [address], [place], [address], [facility] 01/23/2022 18:34:24 02/11/20 23 text/htm l Annual GYNReported by PatientHistoryFor history, patient reportsno gynecologic complaints.Genitourinary symptomsFor menstrual cycle, patient reportsnormal menses. For urinary symptoms, patient reportsno hematuriaandno incontinence. For vulva, patient reportsno genital lesion. For vagina, patient reportsnormal vaginal discharge.Breast symptomsFor breast, patient reportsno breast painandno breast lump.Endocrine symptomsFor sexual complaints, patient reportsno sexual complaintsandno pain during intercourse. For menopausal symptoms, patient reportsno menopausal symptoms.Psychological symptomsFor psychological symptoms, patient reportsno depressionandno anxiety.Preventative measuresFor preventive measures, patient reportsencourage self breast examinationandencourage regular exercise. Benton Ramirez MD [address], [place], [address], [facility] 02/10/2023 17:19:28 02/23/20 24 text/htm l Annual GYNReported by PatientHistoryFor history, patient reportsno gynecologic complaints.Genitourinary symptomsFor urinary symptoms, patient reportsno hematuriaandno incontinence. For vulva, patient reportsno genital lesion. For vagina, patient reportsnormal vaginal discharge.Breast symptomsFor breast, patient reportsno breast painandno breast lump.Endocrine symptomsFor sexual complaints, patient reportsno sexual complaints. For menopausal symptoms, patient reportsno menopausal symptomsandnormal vaginal lubrication.Psychological symptomsFor psychological symptoms, patient reportsno depressionandno anxiety.Preventative measuresFor preventive measures, patient reportsencourage self breast examinationandencourage regular exercise. Benton Ramirez MD [address], [place], [address], [facility] 02/23/2024 17:56:30 OBGyn Episode Ob Episode Information Episode Created Date Number of Fetuses Patient Bloodtype Patient rh Status Prepregnancy Weight lbs Domestic Partner Domestic Partner Phone Father Name Pig Iron Loader Status 12/03/19 20 2 CLOSED Fetus Data First Name Last Name Admitted to NICU Weight (g) Sex Living Outcome Pediatric Complications Fetus ID Race Codes Race Delivery Type 7704 M 2831 Vaginal Delivery [phone] Vaginal Delivery Ishan Calculation Initial Ishan Date [...] Domestic Partner Domestic Partner Phone Father Name Pig Iron Loader Status 12/03/19 1 DELETED Ishan Calculation Initial [...] Domestic Partner Domestic Partner Phone Father Name Pig Iron Loader Status 12/03/19 1 CLOSED Fetus Data First [...] Domestic Partner Domestic Partner Phone Father Name Pig Iron Loader Status 12/03/19 20 1 CLOSED Fetus Data [...]
--- OUTSIDE RECORDS SUMMARY | 2025-03-09 17:14 | XMS_ITS | Clinical Summary ---
Author Organization [facility] Address [address] [place] [address] Care Team Providers Care Manager Winter Name Role Phone Babatunde Mccall MD Primary Care Provider [phone] Source Comments [facility],non-owned Affiliates and Associated Physician Practices is amultiple site organization consisting of ambulatory clinics and hospital sitesin [place], [place], [place] and [place]. This disclosure is being madepursuant to the Care Everywhere program and may not contain all information available regarding this patient. Last updated 18.[facility] Allergies No known active allergies Medications * [...] on file Legal Sex Female 6:13 AM MEDIA/INSTRUCTIONAL DESIGNER Gender Identity Not on file Sexual Orientation Not on file Last Filed Vital Signs Vital Sign Reading Time Taken Comments Blood Pressure 128/72 02/11/2020 12:10 PM CDT Pulse 90 02/11/2020 12:10 PM CDT Temperature 36.9 C (98.5 F) 06/02/2019 7:54 AM MEDIA/INSTRUCTIONAL DESIGNER Respiratory Rate 16 06/02/2019 7:56 AM MEDIA/INSTRUCTIONAL DESIGNER Oxygen Saturation 98% 06/02/2019 7:54 AM MEDIA/INSTRUCTIONAL DESIGNER Inhaled Oxygen Concentration - - Weight 78.7 [...] 2) 2012 SCREENING FOR DIABETES 05/11/2022 05/11/2019 DEPRESSION SCREENING 05/26/2024 COVID-19 VACCINE (1 - 2023-2 5 season) 2025 INFLUENZA VACCINE (#1) 2025 03/18/2019 Respiratory Syncytial Virus (RSV) Vaccine Pt: or [...] PANEL (CALCIUM TOTAL) Routine 05/11/2019 8:52 AM MEDIA/INSTRUCTIONAL DESIGNER Pre-op evaluation from Last 3 Months or Most Recently Relevant to Health Maintenance Results * (ABNORMAL) BASIC METABOLIC PANEL (CALCIUM TOTAL) (05/11/2019 8:52 AM MEDIA/INSTRUCTIONAL DESIGNER) BUN 14 7 - 26 mg/dL 05/11/2019 10:25 AM [facility] Creatinine 0.7 0.6 - 1.2 mg/dL 05/11/2019 10:25 AM [facility] Sodium 144 136 - 145 mmol/L 05/11/2019 10:25 AM [facility] Potassium 4.2 3.5 - 4.5 mmol/L 05/11/2019 10:25 AM [facility] Chloride 106 98 - 107 mmol/L 05/11/2019 10:25 AM [facility] CO2 26 22 - 29 mmol/L 05/11/2019 10:25 AM [facility] Glucose 111 70 - 115 mg/dL 05/11/2019 10:25 AM [facility] Calcium 10.7(H) 8.4 - 10.2 mg/dL 05/11/2019 10:25 AM [facility] Anion Gap 16 8 - 18 05/11/2019 10:25 AM [facility] BUN/Creatinine Ratio 20 7 - 23 05/11/2019 10:25 AM [facility] Osmolality Calculated 299 270 - 300 mOsm/kg 05/11/2019 10:25 AM [facility] eGFR >60 >60 mL/min/1.7 3 m2 05/11/2019 10:25 AM [facility] Blood BLOOD SPECIMEN / Unknown Lab Venipuncture / Unknown 05/11/2019 8:52 AM MEDIA/INSTRUCTIONAL DESIGNER 05/11/2019 9:49 AM MEDIA/INSTRUCTIONAL DESIGNER Marianne Lucas MIX MILL TENDER-SYSTEM SUPPORT ADMINISTRATOR LAB - CHEMISTRY O RDERABLES Final Result [facility] [address] [phone] from Last 3 Months or Most Recently Relevant to Health Maintenance Insurance Advance Directives * Full Code (Latest Code Status on File) Date Activated Date Inactivated Comments 06/01/2019 4:10 PM 06/02/2019 11:49 AM Care Teams Manager Winter Relationship Specialty Start Date End Date Babatunde Mccall MD [address] [place] [id number] PCP - General 03/22/19
== END 2025-03-09 15:04 | disposition home or self-care (01) ==
PROVIDERS: PCP Family Medicine; Visit Provider Obstetrics & Gynecology
DX: Z12.31 Encounter for screening mammogram for malignant neoplasm of breast (principal)
CPT/HCPCS: 77063; 77067

== ENCOUNTER 2025-05-17 15:32 | Outpatient (CLI) | payer OTHER, SELFPAY ==
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
--- OUTSIDE RECORDS SUMMARY | 2025-05-17 15:35 | XMS_ITS | Continuity of Care Document ---
Author Organization [facility] Address [address] [address] Care Team Providers Care Returned Telephone Equipment Appraiser Name Role Phone BERNARDO ANDRADE Primary Care Provider Assessment Encounter Date Assessment Date Assessment LastModified by Organization Details LastModified Time 04/05/2025 04/05/2025 Annual gynecological exam performed. Patient will come back in a year unless there are new symptoms. [email or web address] Not available 04/05/2025 16:38:00 Plan of Treatment Reminders Order Date Submit Date Provider Last Modified By Organization Details Last Modified Time Details Appointments None recorded. Lab None recorded. Referral None recorded. Procedures None recorded. Surgeries None recorded. Imaging MAMMO, screening, digital, bilateral 2024 025 [facility], [address], [address], [place], [address], 17:24:09 Medication Orders None recorded. Patient TargetsNo targets recorded. Patient InstructionsNo instructions recorded. Reason for Referral None Reported. Results Created Date Observation Date Name Description Value Unit Range Abnormal Flag Note LastModifiedBy Organization Detail LastModifiedTime 03/13/20 25 03/09/2025 ricardo jerome/luna hebert tic resul t No observ ation record ed. [facility] [address], [place], [address], 03/20/2025 12:43:15 Result Notes None recorded. Problems Name Problem SNOMED Code Status Onset Date Resolution Date Notes Provider Name and Address Organization Details Recorded Time Atypical glandula r cells on cervical Papanico laou smear 381280412 Active 2010 Abnormal glandula r Papanico laou smear of cervix;R ecorded Elsewher e: No Locat ion: [facility] S ource: EHR Assignment Desk Assistant cece: N Wenditi ce ID: 0001 Thai lable Time: 11:45:00 AM Not Available [facility] 0 17:26:58 Speciali zed medical examinat ion Completed 201112/21/2020 Gynecolo gical Examinat ion;Branden rded Elsewher e: No Locat ion: [facility] S ource: EHR Assignment Desk Assistant cece: N Wenditi ce ID: 0001 Thai lable Time: 05:00:00 PM Friedalalito Lawrence [facility] 1 10:12:07 Adult health examinat ion Completed 201412/21/2020 Routine general medical examinat ion at a health care facility ;Practic e ID: [address] [facility] 1 10:11:30 Screenin g for malignan t neoplasm of cervix Completed 201412/21/2020 Pap Smear;Pr actice ID: [address] [facility] [address] 10:11:[address] Concept Completed 201512/21/2020 Encntr for general adult medical exam w/o abnormal findings ;Recorde d Elsewher e: No Locat ion: [facility] S ource: EHR Assignment Desk Assistant cece: N Practi ce ID: 0001 Thai lable Time: 08:30:00 AM Frieda Lawrence [facility] 1 10:12:03 Removal of intraute rine device Completed 201512/21/2020 Encounte r for removal of intraute rine contrace ptive device;P ractice ID: [address] [facility] 10:11:51 Pregnanc y test negative [id number] Completed 201512/21/2020 Encounte r for pregnanc y test, result negative ;Recorde d Elsewher e: No Locat ion: [facility] S ource: EHR Assignment Desk Assistant cece: N Wenditi ce ID: 0001 Thai lable Time: 08:30:[address] [facility] 10:11:45 Clinical finding Completed 201512/21/2020 Presence of (intraut erine) contrace ptive device;R ecorded Elsewher e: No Locat ion: [facility] S ource: EHR Assignment Desk Assistant cece: N Milagros ce ID: 0001 Tahi lable Time: 08:30:[address] [facility] 10:11:33 Insertio n of intraute rine contrace ptive device Completed 201512/21/2020 Encounte r for insertio n of intraute rine contrace ptive device;R ecorded Elsewher e: No Locat ion: [facility] S ource: EHR Assignment Desk Assistant cece: N Milagros ce ID: 0001 Thai lable Time: 08:30:[address] [facility] 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 10:11:41 Evaluati on finding Completed 201612/21/2020 Hematuri a, unspecif ied;Branden rded Elsewher e: No Locat ion: [facility] S ource: EHR Assignment Desk Assistant cece: N Wenditi ce ID: 0001 Thai lable Time: 08:45:00 AM Frieda blackwood [facility] 1 10:11:35 Screenin g for malignan t neoplasm of rectum Completed 201612/21/2020 Encounte r for screenin g for malignan t neoplasm of rectum;R ecorded Elsewher e: No Locat ion: [facility] S ource: EHR Assignment Desk Assistant cece: N Practi ce ID: 0001 Thai lable Time: 08:45:00 AM Frieda blackwood [facility] 1 10:12:[address] Concept Completed 201612/21/2020 Encounte r for general adult medical exam w abnormal findings ;Practic e ID: 0001 Frieda blackwood [facility] [address] 10:11:[address] Concept Completed 201712/21/2020 Well woman check w/o abnormal finding; Recorded Elsewher e: No Locat ion: [facility] S ource: EHR Assignment Desk Assistant cece: N Practi ce ID: 0001 Thai lable Time: 08:30:00 AM Frieda blackwood [facility] 1 10:12:04 Problem Notes None recorded. Procedures Surgical History Date Name Laterality Status Provider Name and Address Organization Details Recorded Time 023 Date of Last Pap Smear completed Frieda Lawrence [facility] 02/10/2023 16:25:15 022 IUD Removal completed Benton Ramirez MD [address], [place], [address], [facility] 08/22/2021 18:30:22 020 Excision and closure completed Benton Ramirez MD [address], [place], [address], [facility] 12/17/2019 22:25:31 019 parathyroidectomy completed Frieda Lawrence [place] [facility] 12/21/2020 10:36:19 Imaging Results None recorded. [...] Prescrib ed Elsewher e: Yes Loca tion: [facility] odify By: angle jimenez DateTime : 11/05/19 19 11:00:00 AM Not Available Not Available Not Available atorvasta tin 20 mg tablet take 1 tablet by oral route every day 06/27 completed Prescrib ed Elsewher e: Yes Loca tion: [facility] odify By: suresh jimenez DateTime : [...] Prescrib ed Elsewher e: Yes Loca tion: [facility] odify By: la hartman DateTime : [...] Elsewher e: Yes Loca tion: [facility] odify By: suresh jimenez DateTime : [...] Elsewher e: Yes Loca tion: [facility] odify By: la hartman DateTime : 01/08/20 12 05:00:00 PM Not Available Not Available Not Available losartan 100 mg tablet TAKE 1 TABLET BY MOUTH EVERY DAY 12/21 completed Not Available Not Available Not Available Calcio Tegan 500 mg tablet 04/28 completed Prescrib ed Elsewher e: Yes Loca tion: Kristy danuta [facility] odify By: la hartman DateTime : 01/08/20 12 05:00:00 PM Not Available Not Available Not Available Synthroid 04/05 completed Not Available Not Available Not Available Simcor 1,000 mg-20 mg tablet,ex tended release take 1 tablet by oral route every day at bedtime after a low-fat snack 06/09 completed Prescrib ed Elsewher e: Yes [facility] By: la hartman DateTime : 01/08/20 12 05:00:00 PM Not Available Not Available Not Available nisoldipi ne ER 8.5 mg tablet,ex tended release 24 hr take 1 tablet by oral route every day 06/09 completed Prescrib ed Elsewher e: Yes [facility] By: la hartman DateTime : 01/08/20 05:00:00 PM Not Available Not Available Not Available amlodipin e besylate (bulk) 100 % powder 08/22 completed Prescrib ed Elsewher e: Yes Loca tion: [facility] odify By: la Harrison ter DateTime : 06/09/19 08:30:00 AM Not Available Not Available Not Available Fish Oil 100 mg-160 mg-1,000 mg capsule 04/28 completed Prescrib ed Elsewher e: Yes Loca tion: [facility] odify By: la Harrison ter DateTime : 01/08/20 05:00:00 PM Not Available [...] Updated DateTime 04/05/2025 164.47 cm 26.7 kg/m2 75918.91 g 130/72 mm[Hg] Stefanie Bills [facility] 04/05/2025 16:44:42 Social History Question Answer Notes LastModified by Organizat ion Details LastModified Time Tobacco Smoking Status Never Smoker Ivette blackwood [facility] 02/10/2023 15:57:20 Are You Blind [...] Type Of Diet Are You Following? GLUTENFREE [email or web address] Information n ot available 04/05/2025 What Is The Highest Grade Or Level Of School You Have Completed Or The Highest Degree You Have Received? 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 Moderate Information not available 01/23/2022 Mental Status Question Answer Note LastModified by Organization D etails LastModified Time Do you feel stressed (tense, restless, nervous, or anxious, or unable to sleep at night)? [id number] Information not available 12/21/2020 Family History Relationship [...] ICD10 Code Diagnosis IMO Codes Diagnosis Note [id number] JOSY POWER, RODGER [place] [address] [address] 04/05/2025 16:36:43 04/05/2025 17:05:08 Well woman health examination 001008694 Z01.419 098102 Annual gynecologi dionte exam performed. Patient will [...] STI testing - declined Screening mammography 24 396060 Z12.31 [id number] Charis joe [id number] L 73.1 940 Recommende d warm compresses for to relieve ingrown hair follicle; Avoid shaving or waxing area until healed. Call office if no improvemen t, or if area becomes swollen, painful, or producing discharge. Health Concerns Section Related Observation LastModified by Organization Detai ls LastModified Time None Recorded Concern Status LastModified by Organization Details LastModified Time None Recorded Payers Encounter Date Sequence Insurance Name Policy Number Policy Pineda Covered Member ID Pineda Member ID Guarantor Name 04/05/2025 1 R [id number] Frieda Baeza [id number] Frieda Baeza Notes Date Note Type Note Provider Name and Address Organization Details Recorded Time 5 text/html Annual Professor Of Political Science Post-MenopausalReported by PatientGenitourinary symptomsFor menopausal symptoms, patient [...] today. JOSY POWER, RODGER [address], [place], [address], [facility] 04/05/2025 17:04:02 OBGyn Episode No OBEpisode recorded.
--- OUTSIDE RECORDS SUMMARY | 2025-05-17 15:35 | XMS_ITS | Clinical Summary ---
Author Organization [facility] Address [address] [place] [address] Care Team Providers Care Spot Billing Clerk Name Role Phone Babatunde Mccall MD Primary Care Provider [phone] Source Comments [facility],non-owned Affiliates and Associated Physician Practices is amultiple site organization consisting of ambulatory clinics and hospital sitesin [place], [place], [place]. This disclosure is being madepursuant to the Care Everywhere program and may not contain all information available regarding this patient. Last updated 18.[facility] Allergies No known active allergies Medications * [...] on file Legal Sex Female 6:13 AM TESTING AND REGULATING CHIEF Gender Identity Not on file Sexual Orientation Not on file Last Filed Vital Signs Vital Sign Reading Time Taken Comments Blood Pressure 128/72 02/11/2020 12:10 PM CDT Pulse 90 02/11/2020 12:10 PM CDT Temperature 36.9 C (98.5 F) 06/02/2019 7:54 AM TESTING AND REGULATING CHIEF Respiratory Rate 16 06/02/2019 7:56 AM [facility]ING AND REGULATING CHIEF Oxygen Saturation 98% 06/02/2019 7:54 AM TESTING AND REGULATING CHIEF Inhaled Oxygen Concentration - - Weight 78.7 [...] DEPRESSION SCREENING 05/26/2024 COVID-19 VACCINE (1 - 2024-2 6 season) 2025 INFLUENZA VACCINE (#1) 2025 03/18/2019 [...] PANEL (CALCIUM TOTAL) Routine 05/11/2019 8:52 AM TESTING AND REGULATING CHIEF Pre-op evaluation from Last 3 Months or Most Recently Relevant to Health Maintenance Results * (ABNORMAL) BASIC METABOLIC PANEL (CALCIUM TOTAL) (05/11/2019 8:52 AM TESTING AND REGULATING CHIEF) BUN 14 7 - 26 mg/dL 05/11/2019 10:25 AM [facility] Creatinine 0.7 0.6 - 1.2 mg/dL 05/11/2019 10:25 AM [facility] Sodium 144 136 - 145 mmol/L 05/11/2019 10:25 AM [facility] Potassium 4.2 3.5 - 4.5 mmol/L 05/11/2019 10:25 AM [facility] Chloride 106 98 - 107 mmol/L 05/11/2019 10:25 AM [facility] CO2 26 22 - 29 mmol/L 05/11/2019 10:25 AM [facility] Glucose 111 70 - 115 mg/dL 05/11/2019 10:25 AM [facility] Calcium 10.7(H) 8.4 - 10.2 mg/dL 05/11/2019 10:25 AM [facility] Anion Gap 16 8 - 18 05/11/2019 10:25 AM [facility] BUN/Creatinine Ratio 20 7 - 23 05/11/2019 10:25 AM [facility] Osmolality Calculated 299 270 - 300 mOsm/kg 05/11/2019 10:25 AM [facility] eGFR >60 >60 mL/min/1.7 3 m2 05/11/2019 10:25 AM [facility] Blood BLOOD SPECIMEN / Unknown Lab Venipuncture / Unknown 05/11/2019 8:52 AM [facility]ING AND REGULATING CHIEF 05/11/2019 9:49 AM TESTING AND REGULATING CHIEF Marianne Lucas MANAGER PRIMARY CARE-SWAGE TENDER LAB - CHEMISTRY O RDERABLES Final Result [facility] [address] [phone] from Last 3 Months or Most Recently Relevant to Health Maintenance Insurance Advance Directives * Full Code (Latest Code Status on File) Date Activated Date Inactivated Comments 06/01/2019 4:10 PM 06/02/2019 11:49 AM Care Teams Spot Billing Clerk Relationship Specialty Start Date End Date Babatunde Mccall MD [address] [place] [id number] PCP - General 03/22/19
[2025-05-17 16:01] LABS: Alanine Aminotransferase 25 U/L (6-35); Albumin Level 4.8 g/dL (3.5-5.1); Alkaline Phosphatase 84 U/L (38-126); Anion Gap 9 mmol/L (4-12); Aspartate Amino Transferase 30 U/L (14-36); Bilirubin,Total 0.7 mg/dL (0.2-1.3); Blood Urea Nitrogen 18 mg/dL (7-17); Calcium 9.9 mg/dL (8.4-10.2); Carbon Dioxide 26 mmol/L (22-30); Chloride 104 mmol/L (98-107); Estimated Glomerular Filt Rate > 60; Glucose 109 mg/dL (65-110); Potassium 4.1 mmol/L (3.4-5.0); Sodium 139 mmol/L (137-145); Total Protein 7.9 g/dL (6.3-8.2)
[2025-05-17 16:14] LABS: Parathyroid Intact 43.4 pg/mL (14.5-75.2)
[2025-05-17 16:19] LABS: Free T4 Free Thyroxine 1.02 ng/dL (0.78-2.19)
[2025-05-17 16:37] LABS: Thyroid Stimulating Hormone 1.240 uIU/mL (0.465-4.680)
== END 2025-05-17 15:33 | disposition home or self-care (01) ==
LOC: ANHLAB 15:34
PROVIDERS: PCP Family Medicine; Visit Provider Internal Medicine
DX: E78.2 Mixed hyperlipidemia (principal); I10 Essential (primary) hypertension; E06.3 Autoimmune thyroiditis; E21.3 Hyperparathyroidism, unspecified; R73.03 Prediabetes; E03.9 Hypothyroidism, unspecified; R79.89 Other specified abnormal findings of blood chemistry; E21.0 Primary hyperparathyroidism; M81.0 Age-related osteoporosis without current pathological fracture; E55.9 Vitamin D deficiency, unspecified
CPT/HCPCS: 36415; 80053; 82306; 83970; 84439; 84443